=== PATIENT | female | born 1960 | race Caucasian/White ===

== ENCOUNTER → 2018-03-26 12:52 | Outpatient (CLI) | payer MEDICARE, MEDICAID, SELFPAY ==
[2018-03-26 14:24] LABS: Hemoglobin A1C% w Est Avg Glu 7.5 % (4.0-6.0)
[2018-03-26 14:43] LABS: Alanine Aminotransferase 33 IU/L (9-52); Albumin 3.6 g/dL (3.5-5.0); Albumin Globulin Ratio 1.1 (1.0-2.8); Alkaline Phosphatase 83 U/L (38-126); Aspartate Aminotransferase 30 IU/L (14-36); BUN Creatinine Ratio 21.4 (6-22); Bilirubin Total 0.4 mg/dL (0.2-1.3); Blood Urea Nitrogen 15 mg/dL (7-17); Calcium 9.3 mg/dL (8.4-10.2); Carbon Dioxide 25 mmol/L (22-32); Chloride 104 mmol/L (98-107); Estimated Glomerular Filt Rate > 60.0 mL/min (>60); Globulin 3.4 g/dL (1.7-4.1); Glucose 64 mg/dL (70-100); HEMOLYSIS < 15 (0-50); Potassium 4.4 mmol/L (3.4-5.1); Sodium 142 mmol/L (137-145)
[2018-03-26 14:57] LABS: Free T4, Direct Thyroxine 0.76 ng/dL (0.78-2.19)
[2018-03-26 15:11] LABS: Thyroid Stimulating Hormone 7.27 uIU/mL (0.47-4.68)
== END ==
PROVIDERS: PCP Internal Medicine; Visit Provider Internal Medicine
DX: E11.65 Type 2 diabetes mellitus with hyperglycemia (principal); E03.9 Hypothyroidism, unspecified
CPT/HCPCS: 36415; 80053; 83036; 84439; 84443

== ENCOUNTER → 2018-11-15 10:21 | Outpatient (CLI) | payer OTHER, MEDICAID, SELFPAY ==
--- NOTE | 2018-11-15 | DI.MG.S_ITS ---
BILATERAL DIGITAL SCREENING MAMMOGRAM 3D/2D WITH CAD: 11/15/2018 CLINICAL: Routine screening. Comparison is made to exams dated: 08/11/2017 mammogram, 02/16/2007 mammogram, and 10/31/2005 mammogram - [facility]. There are scattered fibroglandular elements in both breasts. Current study was also evaluated with a Computer Aided Detection (CAD) system. There are benign calcifications in both breasts. No significant masses, calcifications, or other findings are seen in either breast. There has been no significant interval change. IMPRESSION: There is no mammographic evidence of malignancy. A 1 year screening mammogram is recommended. This exam was interpreted at Station ID: [id number]. NOTE: For mammograms, a report in lay terms will be sent to the patient. Approximately 15% of breast malignancies will not be visualized mammographically. In the management of a palpable breast mass, a negative mammogram must not discourage biopsy of a clinically suspicious lesion. Electronically Signed By: Saurav [email or web address]/king:11/15/2018 11:57:45 letter sent: Normal Exam ACR BI-RADS Category 2: Benign Finding(s) [id number]
== END ==
PROVIDERS: Family Provider Internal Medicine; PCP Internal Medicine; Visit Provider Internal Medicine
DX: Z12.31 Encounter for screening mammogram for malignant neoplasm of breast (principal)
CPT/HCPCS: 77063; 77067

== ENCOUNTER → 2019-06-28 14:57 | Outpatient (CLI) | payer OTHER, MEDICAID, SELFPAY ==
[2019-06-28 15:21] LABS: Add Manual Diff / Slide Review NO; Basophils Absolute Auto 200 /uL (0-100); Eosinophils Absolute Auto 100 /uL (0-450); Eosinophils Percent Auto 1.3 % (2-4); Hematocrit 37.2 % (36-46); Hemoglobin 12.4 g/dL (12.0-16.0); Lymphocytes Absolute Auto 2800 /uL (1100-4500); Lymphocytes Percent Auto 30.2 % (25-40); Mean Corpuscular HGB Conc 33.3 % (30-36); Mean Corpuscular Hemoglobin 29.8 PG (26-34); Mean Corpuscular Volume 89.5 fL (80-100); Monocytes Absolute Auto 500 /uL (0-900); Monocytes Percent Auto 5.1 % (3-14); Neutrophils Absolute Auto 5800 /uL (1500-7000); Neutrophils Percent Auto 61.4 % (50-75); Platelet Count 292 X10^3/uL (150-400); Red Blood Cell Count 4.15 X10^6/uL (4.0-5.2); Red Cell Distribution Width 14.6 % (11.6-14.8); White Blood Cell Count 9.4 X10^3/uL (4.5-11.0)
[2019-06-28 15:29] LABS: Hemoglobin A1C% w Est Avg Glu 6.4 % (4.0-6.0)
[2019-06-28 16:27] LABS: Alanine Aminotransferase 16 IU/L (9-52); Albumin 3.5 g/dL (3.5-5.0); Albumin Globulin Ratio 1.2 (1.0-2.8); Alkaline Phosphatase 99 U/L (38-126); Aspartate Aminotransferase 24 IU/L (14-36); BUN Creatinine Ratio 21.4 (6-22); Bilirubin Total 0.5 mg/dL (0.2-1.3); Blood Urea Nitrogen 15 mg/dL (7-17); Calcium 9.4 mg/dL (8.4-10.2); Carbon Dioxide 29 mmol/L (22-32); Chloride 101 mmol/L (98-107); Estimated Glomerular Filt Rate > 60.0 mL/min (>60); Glucose 323 mg/dL (70-100); HEMOLYSIS < 15 (0-50); Potassium 4.7 mmol/L (3.4-5.1); Sodium 137 mmol/L (137-145); Total Protein 6.5 g/dL (6.3-8.2)
[2019-06-28 17:01] LABS: Thyroid Stimulating Hormone 2.98 uIU/mL (0.47-4.68)
[2019-06-28 17:02] LABS: Free T4, Direct Thyroxine 0.73 ng/dL (0.78-2.19)
== END ==
PROVIDERS: PCP Internal Medicine; Visit Provider Internal Medicine
DX: E03.9 Hypothyroidism, unspecified (principal); E11.65 Type 2 diabetes mellitus with hyperglycemia; I10 Essential (primary) hypertension; Z79.4 Long term (current) use of insulin
CPT/HCPCS: 36415; 80053; 83036; 84439; 84443; 85025

== ENCOUNTER 2019-08-30 13:45 | Outpatient (RCR) | payer OTHER, MEDICAID, SELFPAY ==
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
== END 2019-08-30 14:46 ==
LOC: PHYS 13:45
PROVIDERS: PCP Internal Medicine; Visit Provider Otolaryngology
DX: R42 Dizziness and giddiness (principal)
CPT/HCPCS: 97110; 97112; 97116; 97162; 97530; 97535

== ENCOUNTER 2019-09-20 13:00 | Outpatient (RCR) | payer OTHER, MEDICAID, SELFPAY ==
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
--- NOTE | 2019-09-05 15:36 | PT.OPPOC ---
Current Diagnoses Unilateral primary osteoarthritis, left knee (09/05/19) Visit Care Team Role Provider Type Sheng Gomes MD Primary Care Provider Physician Specialty: Internal Medicine Address: [address] [place] [address], [address], [place], [address] Email: [email or web address] Ryan Camejo MD Attending Provider Physician Specialty: Orthopedic Surgery Address: [address] [place] [address], [place], [address] Email: [email or web address] Plan Of Care PT-OP-T Assessment and Plan Start: 09/03/19 09:36 Freq: Status: Active Protocol: Document 09/05/19 13:02 MB (Rec: 09/05/19 13:47 MB [id number]) Physical Therapy Assessment Rehab Potential Rehabilitation Potential Fair Evaluation Complexity Number of Personal Factors/Comorbidities 1-2 Number of Body Systems Impaired 1-2 Clinical Presentation at Evaluation Stable Goals 6 Alf Goal (LTG) Pt will perform progressive HEP with I by 11/05/19. LTG Duration 8 weeks 5 Alf Goal (LTG) Pt will present WNLs on a standardized balance test by . LTG Duration 8 weeks 4 Alf Goal (LTG) Pt will present with B hip flexion and knee flexion strength to 5/5 by 11/05/19. LTG Duration 8 weeks 3 Alf Goal (LTG) Pt will present with left knee flexion to 126 deg by 11/05/19 . LTG Duration 8 weeks Two Impairment LE functional index score reflects 53.75% impairment Alf Goal (LTG) Pt will present with an improved LE functional index to reflect no more than 20% impairment by 11/05/19. LTG Duration 8 weeks One Alf Goal (LTG) Pt will report a 25% improvement in left knee pain by 11/05/19. LTG Duration 8 weeks Assessment Summary Assessment Pt is a 58 y/o female presenting with reports of left knee pain and order reflecting patellofemoral OA dx. Pt has mild tenderness over left patella with palpation but no pain with MMT knee extension and flexion. She does not rate pain. Pt presents with mild B hip flexor and right knee flexor weakness, poor balance and myofasical changes. She will benefit from PT for strengthening, balance and flexibility exercises as needed. She presents with normal proprioception right toes but very little proprioception left toes in setting of old foot injury. This likely impacts her balance. She also presents with left ankle edema that she states is chronic. Barriers to PT include increased body mass, left foot decreased sensation, history of dizziness with partial non- organic cause as tested by this PT last week, and impulsivity with decreased insight. Pt wears rocker bottom shoes and PT encourages her to wear more stable foot wear. Her states that she has diabetic shoes and will bring in to future treatments. Diabetic changes also a likely contributer to poor balance. Physical Therapy Plan Frequency and Duration Frequency of Treatment 2x/Week Duration of Treatment 8 weeks Plan of Care Start Date 09/05/19 Plan of Care End Date 11/05/19 Next Visit Focus/Plan Next Note Type Treatment Note Next Visit Plan Initiate strengthening and balance work Plan of Care Dates Plan of Care Start Date 09/05/19 Plan of Care End Date 11/05/19
--- NOTE | 2019-09-05 16:00 | PT.OPPOC ---
Current Diagnoses Unilateral primary osteoarthritis, left knee (09/05/19) Visit Care Team Role Provider Type Sheng Gomes MD Primary Care Provider Physician Specialty: Internal Medicine Address: [address] [place] [address], [address], [place], [address] Email: [email or web address] Ryan Camejo MD Attending Provider Physician Specialty: Orthopedic Surgery Address: [address] [place] [address], [place], [address] Email: [email or web address] Plan Of Care PT-OP-T Assessment and Plan Start: 09/03/19 09:36 Freq: Status: Active Protocol: Document 09/05/19 13:02 MB (Rec: 09/05/19 13:47 MB [id number]) Physical Therapy Assessment Rehab Potential Rehabilitation Potential Fair Evaluation Complexity Number of Personal Factors/Comorbidities 1-2 Number of Body Systems Impaired 1-2 Clinical Presentation at Evaluation Stable Impairments Impairments Balance,Gait,Pain,ROM,Strength Goals 6 Detention Goal (LTG) Pt will perform progressive HEP with I by 11/05/19. LTG Duration 8 weeks 5 Surface Grinder Tender Goal (LTG) Pt will present WNLs on a standardized balance test by . LTG Duration 8 weeks 4 Surface Grinder Tender Goal (LTG) Pt will present with B hip flexion and knee flexion strength to 5/5 by 11/05/19. LTG Duration 8 weeks 3 Detention Goal (LTG) Pt will present with left knee flexion to 126 deg by 11/05/19 . LTG Duration 8 weeks Two Impairment LE functional index score reflects 53.75% impairment Detention Goal (LTG) Pt will present with an improved LE functional index to reflect no more than 20% impairment by 11/05/19. LTG Duration 8 weeks One Surface Grinder Tender Goal (LTG) Pt will report a 25% improvement in left knee pain by 11/05/19. LTG Duration 8 weeks Assessment Summary Assessment Pt is a 58 y/o female presenting with reports of left knee pain and order reflecting patellofemoral OA dx. Pt has mild tenderness over left patella with palpation but no pain with MMT knee extension and flexion. She does not rate pain. Pt presents with mild B hip flexor and right knee flexor weakness, poor balance and myofasical changes. She will benefit from PT for strengthening, balance and flexibility exercises as needed. She presents with normal proprioception right toes but very little proprioception left toes in setting of old foot injury. This likely impacts her balance. She also presents with left ankle edema that she states is chronic. Barriers to PT include increased body mass, left foot decreased sensation, history of dizziness with partial non- organic cause as tested by this PT last week, and impulsivity with decreased insight. Pt wears rocker bottom shoes and PT encourages her to wear more stable foot wear. Her states that she has diabetic shoes and will bring in to future treatments. Diabetic changes also a likely contributer to poor balance. Physical Therapy Plan Frequency and Duration Frequency of Treatment 2x/Week Duration of Treatment 8 weeks Plan of Care Start Date 09/05/19 Plan of Care End Date 11/05/19 Therapeutic Interventions Therapeutic Interventions Balance Training,Gait Training ,Home Exercise Program,Manual Therapy,Neuromuscular Re- education,Patient/Caregiver Education,Self-Care/Home Management,Taping,Therapeutic Activities,Therapeutic Exercises Modalities Cold Pack/Ice Massage,Electric Stimulation,Hot Packs, Ultrasound Next Visit Focus/Plan Next Note Type Treatment Note Next Visit Plan Initiate strengthening and balance work Plan of Care Dates Plan of Care Start Date 09/05/19 Plan of Care End Date 11/05/19
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
== END 2019-10-11 10:18 | disposition home or self-care (01) ==
LOC: PHYS 13:00
PROVIDERS: PCP Internal Medicine; Visit Provider Orthopaedic Surgery
DX: M17.12 Unilateral primary osteoarthritis, left knee (principal)
CPT/HCPCS: 97110; 97161

== ENCOUNTER → 2019-12-06 14:52 | Outpatient (CLI) | payer OTHER, MEDICAID, SELFPAY ==
--- NOTE | 2019-12-06 14:56 | DI.MG.S_ITS ---
BILATERAL DIGITAL SCREENING MAMMOGRAM 3D/2D WITH CAD: 12/06/2019 CLINICAL: Routine screening. Comparison is made to exams dated: 11/15/2018 mammogram, 08/11/2017 mammogram, and 02/16/2007 mammogram - [facility]. The tissue of both breasts is predominantly fatty. Current study was also evaluated with a Computer Aided Detection (CAD) system. There are benign calcifications in both breasts. No significant masses, calcifications, or other findings are seen in either breast. There has been no significant interval change. IMPRESSION: There is no mammographic evidence of malignancy. A 1 year screening mammogram is recommended. This exam was interpreted at Station ID: [id number]. NOTE: For mammograms, a report in lay terms will be sent to the patient. Approximately 15% of breast malignancies will not be visualized mammographically. In the management of a palpable breast mass, a negative mammogram must not discourage biopsy of a clinically suspicious lesion. Electronically Signed By: Saurav [email or web address]/king:12/06/2019 16:24:13 letter sent: Normal Exam ACR BI-RADS Category 2: Benign Finding(s) 3342F
== END ==
PROVIDERS: PCP Internal Medicine; Referring Provider Internal Medicine; Visit Provider Internal Medicine
DX: Z12.31 Encounter for screening mammogram for malignant neoplasm of breast (principal)
CPT/HCPCS: 77063; 77067

== ENCOUNTER → 2020-08-13 14:45 | Outpatient (CLI) | payer OTHER, MEDICAID, SELFPAY ==
[2020-08-13 15:46] LABS: Alanine Aminotransferase 20 IU/L (<35); Albumin 3.9 g/dL (3.5-5.0); Albumin Globulin Ratio 1.1 (1.0-2.8); Alkaline Phosphatase 112 U/L (38-126); Aspartate Aminotransferase 20 IU/L (14-36); BUN Creatinine Ratio 19.1 (6-22); Bilirubin Total 0.7 mg/dL (0.2-1.3); Blood Urea Nitrogen 17 mg/dL (7-17); Calcium 9.7 mg/dL (8.4-10.2); Carbon Dioxide 29 mmol/L (22-32); Chloride 100 mmol/L (98-107); Cholesterol 172 mg/dL (140-199); Estimated Glomerular Filt Rate > 60.0 mL/min (>60); Globulin 3.5 g/dL (1.7-4.1); Glucose 262 mg/dL (70-100); HDL Cholesterol 43 mg/dL (40-60); HEMOLYSIS < 15 (0-50); LDL Cholesterol Calculated 97 mg/dL (<100); Potassium 4.3 mmol/L (3.4-5.1); Sodium 136 mmol/L (137-145); Total Protein 7.4 g/dL (6.3-8.2); Triglycerides 159 mg/dL (35-150)
[2020-08-13 16:02] LABS: Creatinine Urine Random 332.5 mg/dL
[2020-08-13 16:13] LABS: TSH w/ Reflex to FT4 2.59 uIU/mL (0.47-4.68)
== END ==
PROVIDERS: PCP Internal Medicine; Referring Provider Internal Medicine; Visit Provider Internal Medicine
DX: E11.65 Type 2 diabetes mellitus with hyperglycemia (principal)
CPT/HCPCS: 36415; 80053; 80061; 82043; 82570; 84443

== ENCOUNTER 2021-03-20 06:48 | Emergency (ER) | payer OTHER, MEDICAID, SELFPAY ==
[2021-03-20] VITALS (15 sets, daily range): BP systolic 120–159; BP diastolic 56–82; PULSE 96–119; RESP 18–38; TEMP 36.6; O2SAT 94–100; BMI 44.9
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
--- NOTE | 2021-03-20 07:26 | ED_ITS ---
HPI - Extremity Injury (Upper) General Chief Complaint: Extremity Injury, Upper Stated Complaint: GLF Time Seen by Provider: 03/20/21 06:50 Source: EMS Mode of arrival: EMS Limitations: no limitations History of Present Illness HPI narrative: Patient is a 60-year-old female who has a history of vertigo, hypertension hyperlipidemia presenting after and ground level fall. She says she woke up this morning with dizzy and fell to the ground hitting her right shoulder. She thinks maybe she hit her head but no loss of consciousness she denies any nausea or vomiting. She does have some numbness and tingling in her fingertips and is in quite a bit of pain in her right shoulder. No other injury. Dizziness is not new this is her typical dizziness. Related Data Home Medications Medication Instructions Recorded Confirmed glucagon (human recombinant) 1 mg 1 mg SUBCUT Q20M PRN 11/25/19 02/09/21 solution for injection liraglutide 0.6 mg/0.1 mL (18 mg/3 1.2 mg SUBCUT DAILY 08/13/20 02/09/21 mL) subcutaneous pen injector desonide 0.05 % topical cream 1 applic TOP TID PRN gram 02/09/21 02/09/21 triamcinolone acetonide 0.1 % 1 applic TOP QID PRN gram 02/09/21 02/09/21 topical cream Previous Rx's Medication Instructions Recorded epinephrine [EpiPen 2-Bon] 0.3 mg IM SEE INSTRUCTIONS PRN #1 01/27/17 pkg Disabled Parking Permit ea #1 05/18/17 insulin lispro 100 unit/mL See Rx Instructions SUBCUT QACHS 09/18/18 subcutaneous pen PRN #3 each omeprazole 40 mg capsule,delayed 40 mg PO BID #180 cap 08/13/20 release amlodipine 5 mg tablet 5 mg PO DAILY #90 tab 09/01/20 bupropion HCl 150 mg tablet,12 hr 150 mg PO BID #60 tab 09/07/20 sustained-release pen needle, diabetic 31 gauge x See Rx Instructions .ROUTE 09/15/2012/29 .COMPLEX #250 ea duloxetine 40 mg capsule,delayed 40 mg PO QDAY #30 cap 10/05/20 release blood sugar diagnostic #360 each 10/19/20 galcanezumab-gnlm 120 mg/mL 120 mg SUBCUT QMONTH #1 ml 10/19/20 subcutaneous syringe losartan 100 mg tablet 100 mg PO DAILY #60 tab 10/26/20 atorvastatin 40 mg tablet 40 mg PO QDAY #90 tab 11/02/20 nortriptyline 50 mg capsule 50 mg PO HS #90 cap 12/04/20 insulin glargine 100 unit/mL (3 50 unit SUBCUT QDAY #45 ml 12/24/20 mL) subcutaneous pen clonidine HCl 0.1 mg tablet 0.1 mg PO BID #180 tab 01/26/21 albuterol sulfate 2.5 mg INHALATION Q4-6H PRN #180 ml 02/09/21 calcium carbonate 320 mg calcium 2,250 mg PO DAILY #250 tab 02/09/21 (750 mg) chewable tablet cholecalciferol (vitamin D3) 50 50 mcg PO DAILY #90 cap 02/09/21 mcg (2,000 unit) capsule fluticasone propionate 230 2 puff INHALATION BID #12 g 02/09/21 mcg-salmeterol 21 mcg/actuation HFA inhaler fluticasone propionate 50 2 spray INTRANASAL BEDTIME #16 g 02/09/21 mcg/actuation nasal spray,suspension mecobalamin (vitamin B12) 1,000 1,000 mcg PO DAILY #90 tab 02/09/21 mcg chewable tablet ondansetron 4 mg PO Q8H PRN #10 tab 03/20/21 oxycodone 5 mg PO Q6H PRN #14 tab 03/20/21 Allergies Allergy/AdvReac Type Severity Reaction Status Date / Time aspirin [ASPIRIN] Allergy Severe Breathing Verified 03/20/21 06:52 problem erythromycin base Allergy Severe Throat Verified 03/20/21 06:52 [ERYTHROMYCIN BASE] closes sumatriptan [SUMATRIPTAN] Allergy Severe Anaphylaxis Verified 03/20/21 06:52 meperidine [MEPERIDINE] Allergy Mild Rash Verified 03/20/21 06:52 acetaminophen [From VICODIN] Allergy Unknown Verified 03/20/21 06:52 hydrocodone [From VICODIN] Allergy Unknown Verified 03/20/21 06:52 ibuprofen [IBUPROFEN] AdvReac Mild Headache, Verified 03/20/21 06:52 vomiting Review of Systems Review of Systems ROS Unobtainable: All systems reviewed & are unremarkable except as noted in HPI and below Constitutional Constitutional: Denies chills, Denies fever(s), Denies frequent falls, Denies lethargy and Denies weakness Eyes Eyes: Denies change in vision, Denies eye discharge, Denies irritation and Denies loss of vision ENT Ears, Nose, Mouth, and Throat: Reports dizziness Cardiovascular Cardiovascular: Denies chest pain, Denies syncope, Denies rapid heart rate, Denies edema, Denies dyspnea, Denies dyspnea on exertion and Denies orthopnea Respiratory Respiratory: Denies cough, Denies dyspnea, Denies dyspnea on exertion and Denies wheezing Gastrointestinal Gastrointestinal: Denies abdominal pain, Denies change in bowel habits, Denies diarrhea, Denies nausea and Denies vomiting Musculoskeletal Musculoskeletal: Reports as per HPI Integumentary/Breasts Skin/Breast: Denies pruritus, Denies erythema, Denies rash and Denies wounds Neurologic Neurologic: Reports dizziness, Denies syncope, Denies frequent falls, Denies loss of vision and Denies weakness Allergic/Immunologic Allergic/Immunologic: Denies wheezing Patient History Medical History (Updated 03/20/21 @ 09:49 by Stephie Angel DO) Acquired hypothyroidism (01/14/16) Anxiety (05/12/17) Asthma Body mass index (BMI) of 40.1 to 44.9 in adult (01/06/17) GERD (gastroesophageal reflux disease) (05/27/11) H/O migraine Mixed hyperlipidemia (05/27/11) Moderate persistent asthma without complication (05/27/11) Morbid obesity due to excess calories (01/06/17) Recurrent major depressive disorder, in partial remission (05/12/17) Type 2 diabetes mellitus with diabetic polyneuropathy (08/21/15) Type 2 diabetes mellitus with hyperglycemia, with long-term current use of insulin (04/15/16) Surgical History Fracture S/P total abdominal hysterectomy and bilateral salpingo-oophorectomy Status post cholecystectomy Surgical procedure planned Social History marital status: number of children: 3 household members: spouse lives independently: Yes caregiver/support person: No housing: apartment pets and animals: Yes education level: college occupational status: disabled current occupational exposures/hazards: No 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: Zoroastrianism leisure activities: other Smoking Status: Former smoker Tobacco: How many years used: 10 Smokeless tobacco user: other quit status: quit date established alcohol intake: current substance use type: other Smoking Status: Former smoker Exam Initial Vital Signs Initial Vital Signs: Vital Signs Temperature 98 F 03/20/21 06:52 Pulse Rate 119 H 03/20/21 06:52 Respiratory Rate 20 03/20/21 06:52 Blood Pressure 159/82 H 03/20/21 06:52 Pulse Oximetry 94 03/20/21 06:52 GENERAL: Alert 60-year-old female BMI 44 appears in pain HEENT: Head atraumatic,EOMI, pupils reactive, face symmetric, [moist] mucous membranes, neck supple no vertebral tenderness full range of motion CARDIOVASCULAR: Regular rate and rhythm without murmurs, rubs or gallops. RESPIRATORY: Breath sounds equal bilaterally, no wheezes rales or rhonchi. ABDOMEN: Soft, nontender. Normoactive bowel sounds all 4 quadrants. No guarding or rebound. EXTREMITIES: Normal range of motion, no clubbing or edema. Neurovascularly intact Right upper extremity in sling sensation in the deltoid intact. Complaining of numbness and tingling in fingers but ulnar radial and median nerve in tact sensation and motor. Finger ab and adduction wrist flexion and extension. NEUROLOGICAL: Alert and oriented x4. No focal deficits SKIN: Warm, dry, no laceration, no petechiae, no rashes or lesions. Procedures Orthopedic Splinting/Casting Injury #1: Side: right Upper Extremity Injury Location: shoulder Upper Extremity Immobilizer: sling/shoulder immobilizer Post splinting neuro exam: intact Post splinting vascular exam: intact Placed by: Nursing Course Orders Ordered: ED Orders 03/20/21 06:52 XR shoulder RT min 2V Stat 03/20/21 07:30 Complete Blood Count AUTO DIFF Stat Comprehensive Metabolic Panel Stat Troponin & CK Cardiac Panel Stat 03/20/21 07:38 EKG-12 Lead Stat 03/20/21 07:45 COVID19 -Nasal swab/Pre-Proc Stat 03/20/21 08:04 CT UE RT wo con Stat Discontinued Medications Etomidate (Etomidate 2 Mg/Ml 10 Ml Vial) 10 mg IV NOW ONE Stop: 03/20/21 07:39 Hydromorphone HCl (Hydromorphone 0.5 Mg Inj) 0.5 mg IV NOW ONE Stop: 03/20/21 08:20 Last Admin: 03/20/21 08:30 Dose: 0.5 mg Documented by: VADIM Hydromorphone HCl (Hydromorphone 0.5 Mg Inj) 0.5 mg IV NOW ONE Stop: 03/20/21 09:52 Last Admin: 03/20/21 09:57 Dose: 0.5 mg Documented by: VADIM Morphine Sulfate (Morphine 2 Mg/Ml Inj) 2 mg IV NOW ONE Stop: 03/20/21 07:50 Last Admin: 03/20/21 07:56 Dose: 2 mg Documented by: VADIM Ondansetron HCl (Ondansetron 4 Mg/2 Ml Inj) 4 mg IV NOW ONE Stop: 03/20/21 07:51 Last Admin: 03/20/21 07:56 Dose: 4 mg Documented by: VADIM Vital Signs Vital signs: Vital Signs - 8 hr 03/20/21 07:35 03/20/21 07:39 03/20/21 07:41 Pulse Rate 101 H 102 H 101 H Respiratory Rate 26 H 18 Blood Pressure 141/59 H 127/60 Pulse Oximetry 97 96 03/20/21 07:46 03/20/21 07:51 03/20/21 07:56 Pulse Rate 98 H 99 H 96 H Respiratory Rate 38 H 25 H 21 Blood Pressure 126/59 L 120/56 L 125/58 L Pulse Oximetry 100 100 100 03/20/21 08:00 03/20/21 08:14 03/20/21 08:30 Pulse Rate 102 H 101 H 101 H Respiratory Rate 22 18 22 Blood Pressure Pulse Oximetry 100 96 98 03/20/21 09:00 03/20/21 09:30 03/20/21 10:00 Pulse Rate 101 H 104 H 106 H Respiratory Rate 21 23 28 H Blood Pressure Pulse Oximetry 99 98 99 MDM - Extremity Injury (Upper) Lab Data Attestation: I reviewed the patient's lab results. Result diagrams: 03/20/21 07:30 03/20/21 07:30 Labs: Lab Results 03/20/21 03/20/21 03/20/21 Range/Units 07:30 07:30 07:45 WBC 12.4 H (4.5-11.0) X10^3/uL RBC 4.49 (4.0-5.2) X10^6/uL Hgb 12.8 (12.0-16.0) g/dL Hct 38.0 (36-46) % MCV 84.6 (80-100) fL MCH 28.5 (26-34) PG MCHC 33.7 (30-36) % RDW 14.6 (11.6-14.8) % Plt Count 321 (150-400) X10^3/uL Neut % (Auto) 63.9 (50-75) % Lymph % (Auto) 29.4 (25-40) % Hodgeman % (Auto) 5.2 (3-14) % Eos % (Auto) 1.2 L (2-4) % Baso % (Auto) 0.3 (0-2) % Neut # (Auto) 7900 H (2096-6704) /uL Lymph # (Auto) 3600 (0714-9155) /uL Hodgeman # (Auto) 600 (0-900) /uL Eos # (Auto) 100 (0-450) /uL Baso # (Auto) 0 (0-100) /uL Sodium 135 L (137-145) mmol/L Potassium 3.8 (3.4-5.1) mmol/L Chloride 103 (98-107) mmol/L Carbon Dioxide 25 (22-32) mmol/L BUN 12 (7-17) mg/dL Creatinine 0.71 (0.52-1.04) mg/dL Estimated GFR > 60.0 (>60) mL/min BUN/Creatinine Ratio 16.9 (6-22) Glucose 224 H (70-100) mg/dL Calcium 9.3 (8.4-10.2) mg/dL Total Bilirubin 0.6 (0.2-1.3) mg/dL AST 35 (14-36) IU/L ALT 21 (<35) IU/L Alkaline Phosphatase 109 (38-126) U/L Total Creatine Kinase 222 H (30-135) U/L CK-MB (CK-2) 4.15 H (<2.37) ng/mL CK-MB (CK-2) Rel Index 1.9 (1.5-5.0) % Troponin I < 0.012 (0.01-0.034) ng/mL Total Protein 7.0 (6.3-8.2) g/dL Albumin 3.7 (3.5-5.0) g/dL Globulin 3.3 (1.7-4.1) g/dL Albumin/Globulin Ratio 1.1 (1.0-2.8) SARS-CoV-2 (PCR) Negative (Negative) Imaging Data Extremity x-ray #1: Radiologist's Impression: PROCEDURE: XR SHOULDER RT MIN 2V INDICATIONS: fall with arm pain TECHNIQUE: 2 views of the shoulder were acquired. COMPARISON: None. FINDINGS: Bones: There is a fracture of the humeral head and neck, and anterior disl ocation of the structures in the subcoracoid space.. No suspicious bony lesions. Visualized ribs appear intact. Soft tissues: No suspicious soft tissue calcifications. IMPRESSION: Anterior dislocation with at least 3 part fracture involving the humeral head and neck. Dictated by: Jimbo Palacio M.D. on 03/20/2021 at 8:27 CT RUE: Radiologist's Impression: PROCEDURE: CT UE RT WO CON INDICATIONS: fracture/dislocation humerus TECHNIQUE: Noncontrast 1-1.5 mm thick sections acquired from the acromioclavicular joint to the inferior scapula, with coronal and sagittal reformatting. COMPARISON: Plain film imaging same day. FINDINGS: Image quality: Excellent. Bones: Extensively comminuted fracture planes involves the humeral head and neck, on the right. There is both lateral and anterior dislocation of portions of the fracture planes, and the glenoid visualized appears intact. Soft tissues: No hematoma. IMPRESSION: Extensively comminuted fractures involve the humeral head and neck on the right with both anterior and lateral dislocation of components of the fracture planes. No additional injury to the shoulder is found. Dictated by: Jimbo Palacio M.D. on 03/20/2021 at 8:32 MDM Narrative Medical decision making narrative: 08-Dr. Barillas on-call for Orthopedics updated on patient's symptoms test results recommends CT of upper extremity sling pain control and follow-up in clinic. Patient does have multiple allergies to Tylenol and ibuprofen however she does seem to be tolerating dilaudid well I will discharge her home oxycodone and structure to follow up with ortho as requested Discharge Plan Departure Patient Disposition: Home Clinical Impression: Closed fracture of head of right humerus Qualifiers: Encounter type: initial encounter Qualified Code(s): S42.291A - Other displaced fracture of upper end of right humerus, initial encounter for closed fracture Anterior dislocation of right humerus Qualifiers: Encounter type: initial encounter Qualified Code(s): S43.014A - Anterior dislocation of right humerus, initial encounter Activity Restrictions/Additional Instructions: *You have been diagnosed with right humeral head fracture and dislocation *What to do: At this time keep arm in sling at all times. He may need to by a 2nd sling for bathing. You will need to follow-up with orthopedics. *Continue to take medications as directed Oxycodone 5 mg every 6 hours if needed for severe pain *Follow up with your primary care provider in 2-3 days Call orthopedics Monday to schedule follow-up appointment next week *Return to ER if you should have increasing pain, increasing numbness tingling or weakness in right hand or any new, worsening or concerning symptoms CONTROLLED SUBSTANCE DISCHARGE (Narcotoic/benzodiazepine/Flexeril/Phenergan) 1. You have been prescribed narcotic medications, it does have acetaminophen/Tylenol/paracetamol in it, DO NOT TAKE MORE THAN 4,00mg in 24 hours of Tylenol. TRAMADOL DOES NOT CONTAIN TYLENOL 2. Please understand that we cannot provide further refills of narcotics, benzodiazepines or controlled substances through the ED and her pain management will need to be through your provider. 3. While on these medications you cannot drive or operate heavy machinery. 4. You cannot sign legal documents or perform any duties such as this. 5. As long as you're taking opiate pain medications he should also be taking a stool softener such as Colace, Dulcolax, MiraLAX or prune juice, to help avoid constipation. Prescriptions: New oxycodone 5 mg tablet 5 mg PO Q6H PRN (Reason: pain) Qty: 14 RF: 0 ondansetron 4 mg tablet,disintegrating 4 mg PO Q8H PRN (Reason: nausea and vomiting) Qty: 10 RF: 0 No Action epinephrine [EpiPen 2-Bon] 0.3 MG/0.3 ML auto-injector 0.3 mg IM SEE INSTRUCTIONS PRNQty: 1 RF: 1 Disabled Parking Permit Qty: 1 RF: 0 insulin lispro [Humalog KwikPen Insulin] 100 unit/mL insulin pen See Rx Instructions SUBCUT QACHS PRN (Reason: DM) Qty: 3 RF: 6 bupropion HCl 150 mg tablet sustained-release 12 hr 150 mg PO BID Qty: 60 RF: 5 pen needle, diabetic [BD Ultra-Fine Mini Pen Needle] 31 gauge x 3/16 needle See Rx Instructions .ROUTE .COMPLEX Qty: 250 RF: 6 duloxetine 40 mg capsule,delayed release(DR/EC) 40 mg PO QDAY Qty: 30 RF: 11 Emgality Syringe 120 mg/mL syringe 120 mg SUBCUT QMONTH Qty: 1 RF: 12 (DME) Blood Glucose Test Strip See Dose Instructions .ROUTE .MEDSUPPLY Qty: 360 RF: 3 losartan 100 mg tablet 100 mg PO DAILY Qty: 60 RF: 6 atorvastatin 40 mg tablet 40 mg PO QDAY Qty: 90 RF: 3 nortriptyline 50 mg capsule 50 mg PO HS Qty: 90 RF: 3 Lantus Solostar U-100 Insulin 100 unit/mL (3 mL) insulin pen 50 unit subcut QDAY Qty: 45 RF: 11 clonidine HCl 0.1 mg tablet 0.1 mg PO BID Qty: 180 RF: 3 desonide 0.05 % cream 1 applic TOP TID PRNRF: 0 triamcinolone acetonide 0.1 % cream 1 applic TOP QID PRNRF: 0 Advair HFA 230-21 mcg/actuation HFA aerosol inhaler 2 puff inhalation BID Qty: 12 RF: 3 albuterol sulfate 2.5 mg /3 mL (0.083 %) solution for nebulization 2.5 mg inhalation Q4-6H PRN (Reason: shortness of breath or wheezing) Qty: 180 RF: 4 mecobalamin (vitamin B12) 1,000 mcg tablet,chewable 1,000 mcg PO DAILY Qty: 90 RF: 3 fluticasone propionate 50 mcg/actuation spray,suspension 2 spray intranasal BEDTIME Qty: 16 RF: 3 calcium carbonate [Antacid (calcium carbonate)] 320 mg calcium (750 mg) tablet ,chewable 2,250 mg PO DAILY Qty: 250 RF: 3 cholecalciferol (vitamin D3) 50 mcg (2,000 unit) capsule 50 mcg PO DAILY Qty: 90 RF: 3 Glucagon Emergency Kit (human) 1 mg recon soln 1 mg SUBCUT Q20M PRNRF: 0 amlodipine 5 mg tablet 5 mg PO DAILY Qty: 90 RF: 3 Victoza 2-Bon 0.6 mg/0.1 mL (18 mg/3 mL) pen injector 1.2 mg SUBCUT DAILY RF: 0 omeprazole 40 mg capsule,delayed release(DR/EC) 40 mg PO BID Qty: 180 RF: 3 Referrals: [facility] [Provider Group] Sheng Gomes MD [Primary Care Provider] -
[2021-03-20 07:47] LABS: Add Manual Diff / Slide Review NO; Basophils Absolute Auto 0 /uL (0-100); Basophils Percent Auto 0.3 % (0-2); Eosinophils Absolute Auto 100 /uL (0-450); Eosinophils Percent Auto 1.2 % (2-4); Hemoglobin 12.8 g/dL (12.0-16.0); Lymphocytes Absolute Auto 3600 /uL (1100-4500); Lymphocytes Percent Auto 29.4 % (25-40); Mean Corpuscular HGB Conc 33.7 % (30-36); Mean Corpuscular Hemoglobin 28.5 PG (26-34); Mean Corpuscular Volume 84.6 fL (80-100); Monocytes Absolute Auto 600 /uL (0-900); Monocytes Percent Auto 5.2 % (3-14); Neutrophils Absolute Auto 7900 /uL (1500-7000); Neutrophils Percent Auto 63.9 % (50-75); Platelet Count 321 X10^3/uL (150-400); Red Blood Cell Count 4.49 X10^6/uL (4.0-5.2); Red Cell Distribution Width 14.6 % (11.6-14.8); White Blood Cell Count 12.4 X10^3/uL (4.5-11.0)
[2021-03-20] MEDS: MORPHINE 2 MG/ML INJ IV (07:56)
[2021-03-20] MEDS: ONDANSETRON 4 MG/2 ML INJ IV (07:56)
[2021-03-20 08:03] LABS: COVID19 -Nasal RAPID Negative (Negative)
[2021-03-20 08:04] LABS: Alanine Aminotransferase 21 IU/L (<35); Albumin 3.7 g/dL (3.5-5.0); Albumin Globulin Ratio 1.1 (1.0-2.8); Alkaline Phosphatase 109 U/L (38-126); Aspartate Aminotransferase 35 IU/L (14-36); BUN Creatinine Ratio 16.9 (6-22); Bilirubin Total 0.6 mg/dL (0.2-1.3); Blood Urea Nitrogen 12 mg/dL (7-17); Calcium 9.3 mg/dL (8.4-10.2); Carbon Dioxide 25 mmol/L (22-32); Chloride 103 mmol/L (98-107); Creatine Kinase 222 U/L (30-135); Estimated Glomerular Filt Rate > 60.0 mL/min (>60); Globulin 3.3 g/dL (1.7-4.1); Glucose 224 mg/dL (70-100); HEMOLYSIS < 15 (0-50); Potassium 3.8 mmol/L (3.4-5.1); Sodium 135 mmol/L (137-145)
--- NOTE | 2021-03-20 08:04 | DI.CT.S_ITS ---
PROCEDURE: CT UE RT WO CON INDICATIONS: fracture/dislocation humerus TECHNIQUE: Noncontrast 1-1.5 mm thick sections acquired from the acromioclavicular joint to the inferior scapula, with coronal and sagittal reformatting. COMPARISON: Plain film imaging same day. FINDINGS: Image quality: Excellent. Bones: Extensively comminuted fracture planes involves the humeral head and neck, on the right. There is both lateral and anterior dislocation of portions of the fracture planes, and the glenoid visualized appears intact. Soft tissues: No hematoma. IMPRESSION: Extensively comminuted fractures involve the humeral head and neck on the right with both anterior and lateral dislocation of components of the fracture planes. No additional injury to the shoulder is found. Dictated by: Jimbo Palacio M.D. on 03/20/2021 at 8:32 Approved by: Jimbo Palacio M.D. on 03/20/2021 at 8:34
[2021-03-20 08:15] LABS: Troponin I < 0.012 ng/mL (0.01-0.034)
[2021-03-20 08:19] LABS: CKMB % Relative Index 1.9 % (1.5-5.0); Creatine Kinase MB 4.15 ng/mL (<2.37)
[2021-03-20] MEDS: HYDROMORPHONE 0.5 MG INJ IV ×2 (08:30→09:57)
--- NOTE | 2021-03-20 10:27 | PC.NURSE ---
sling applied to right arm.
== END 2021-03-20 10:30 | disposition home or self-care (01) ==
PROVIDERS: Emergency Provider Emergency Medicine; PCP Internal Medicine
DX: S42.291A Other displaced fracture of upper end of right humerus, initial encounter for closed fracture (principal); S43.014A Anterior dislocation of right humerus, initial encounter; R07.9 Chest pain, unspecified; R42 Dizziness and giddiness; W19.XXXA Unspecified fall, initial encounter; Z20.822 Contact with and (suspected) exposure to COVID-19
CPT/HCPCS: 36415; 73030; 73200; 80053; 82550; 82553; 84484; 85025; 87635; 93005; 93010; 96374; 96375; 96376; 99284; C9803; J1170; J2270; J2405

== ENCOUNTER 2021-03-26 09:05 | Inpatient (IN) | payer OTHER, MEDICAID, SELFPAY ==
[2021-03-25 08:06] VITALS: BMI 46.0
[2021-03-26] VITALS (16 sets, daily range): BP systolic 111–167; BP diastolic 60–90; PULSE 95–115; RESP 14–18; TEMP 35.8–37.1; O2SAT 92–98; BMI 46.0
[2021-03-26 09:40] LABS: COVID19 -Nasal RAPID Negative (Negative)
[2021-03-26] MEDS: INSULIN REGULAR 100 UNIT/ML 3 ML VIAL IV (10:35)
[2021-03-26] MEDS: INSULIN DRIP PREMIX 100 UNIT/100 ML PLAST..BAG 6 UNIT IV (10:55)
[2021-03-26] MEDS: LACTATED RINGERS 1,000 ML 42 ML IV ×2 (11:08→14:22)
[2021-03-26] MEDS: ALBUTEROL 2.5 MG/3 ML NEB (ADULT) INH ×2 (11:33→19:51)
[2021-03-26] MEDS: SCOPOLAMINE 1 PATCH TOP (11:39)
--- NOTE | 2021-03-26 11:53 | PM.PREOP ---
Pre-operative Note COVID-19 COVID-19 status: Negative Interval Note History & Physical reviewed/Exam performed by Physician: Yes Changes to H&P: No
--- NOTE | 2021-03-26 12:04 | PM.PREOP ---
Pre-operative Note COVID-19 COVID-19 status: Negative Interval Note History & Physical reviewed/Exam performed by Physician: Yes Changes to H&P: No
[2021-03-26] MEDS: CEFAZOLIN 1 GM VIAL 2 GM IV (12:30)
--- NOTE | 2021-03-26 12:46 | SUR.OPER ---
Beach chair with scytron shoulder positioner. Lower body on padded OR bed. Head in foam padded head cradle, secured with straps. Non-operative arm secured <90 degrees abduction. Pillow under knees. Safety belt at thigh. Cloth tape over blanket over lower legs.
[2021-03-26] MEDS: LIDOCAINE 1% W/EPI 20 ML INJ (12:59)
[2021-03-26] MEDS: BUPIVACAINE 0.5% (PF) VIAL 30 ML INJ (12:59)
--- NOTE | 2021-03-26 13:05 | SUR.OPER ---
Addendum entered by Cr Stein R.N. 03/26/21 14:02: blood glucose at 1402 was 184 Original Note: blood glucose at 1302 was 191
[2021-03-26] MEDS: TRANEXAMIC ACID 1,000 MG in SODIUM CHLORIDE 0.9% 100 ML 200 ML IV (14:21)
--- NOTE | 2021-03-26 15:09 | DI.RAD.S_ITS ---
PROCEDURE: XR SHOULDER RT MIN 2V INDICATIONS: Status post reverse total shoulder TECHNIQUE: A total of 2 views of the shoulder were acquired. COMPARISON: [facility], CR, XR SHOULDER RT MIN 2V, 03/20/2021, 6:59. FINDINGS: Bones: Normal alignment after right total shoulder arthroplasty. No suspicious bony lesions. Visualized ribs appear intact. Soft tissues: No suspicious soft tissue calcifications. IMPRESSION: Normal alignment established, by shoulder arthroplasty on the right. Dictated by: Jimbo Palacio M.D. on 03/26/2021 at 15:29 Approved by: Jimbo Palacio M.D. on 03/26/2021 at 15:30
[2021-03-26] MEDS: LACTATED RINGERS 1,000 ML 125 ML IV (17:58)
[2021-03-26] MEDS: OXYCODONE IR 10 MG TABLET PO (19:24)
[2021-03-26] MEDS: BUDESONIDE 0.5 MG/2 ML NEB INH (19:51)
--- NOTE | 2021-03-26 20:27 | P.OP_ITS ---
Operative Date/Time/Diagnoses Date of procedure: 03/26/21 Time of procedure: 12:30 Pre-op diagnosis: Fracture dislocation of the proximal humerus, right Post-op diagnosis: same Procedure & Clinicians Procedure: Reversed total shoulder arthroplasty Same procedure as scheduled: Yes Indications: Fracture dislocation of the proximal humerus Surgeon: Marcus Barillas Compositor Apprentice: Ayanna Acosta Anesthesia Type: General Operative Notes Findings: Highly comminuted humeral head fracture with part of the head dislocated from the glenoid. Four part proximal humerus fracture with a head split the articular aspect of the head dislocated from the joint with the greater tuberosity and lesser tuberosity as separate fragments with the rotator cuff still attached to the lesser and greater tuberosity. Closure Type: primary Specimen(s): none sent Applied: implant(s) (Arthrex reverse total shoulder arthroplasty 5 stem 36 neutral suture cup and a +3 humeral insert 24 mm +2 lateral base plate 36+ 4 lateral glenosphere 4 peripheral locking screws) Estimated Blood Loss (mL): 200 Blood products transfused: none Procedure in detail: On date of service, Patient was met in the holding area. The operative site was signed and witnessed by the OR staff. The surgeries once again discussed with the patient and any remaining questions they had were answered fully. Patient was taken back to the operating theater and placed on the operating table in a supine position. Great care was taken to ensure that all bony prominences were properly padded. Patient was then placed into the beach chair position. The head and neck were properly positioned and secured. A timeout was performed verifying patient's name, procedure, and the operative site. The upper extremity was then prepped and draped in the normal sterile fashion. Previously, the bony anatomy and incision were marked out as well as injected with Marcaine with epinephrine. A deltopectoral approach was performed. 10 blade was used to incise the skin and fascial tissue. A deep knife was used to continue sharp dissection until the cephalic vein was visualized. The cephalic vein was dissected free allowing us to expose the deltopectoral interval. This interval was then developed. A Andrade elevator was used to free up the deltoid of any scarring both superficially as well as deeply. The vein and the deltoid were taken laterally while the pectoralis was taken medially. This gave us good visualization of the strap muscles. The clavipectoral fascia was removed and the strap muscles were then retracted medially with the pectoralis. As mentioned above, patient had a fracture as well as a dislocation. We were able to remove the articular surface of the humeral head which was dislocated anteriorly. Once this was removed we were able to find the lesser tuberosity would still have the subscapularis attached. This was tagged with an Ethibond suture. There was a large greater tuberosity fragment that had the remaining rotator cuff attached to it. This was also tagged with an Ethibond suture. Once we had our rotator cuff and tuberosities identified, we turned our attention to the glenoid. The degenerative anterior and inferior capsular tissue was removed. This was followed by removing the degenerative labral tissue from around the glenoid as well as the biceps insertion. This gave us good visualization of the glenoid. Guide pin was placed in the center of the glenoid. This gave us a good idea of the ventral screw length. Cannulated drill bit was placed over the guidewire and drilled. This was followed by a small Reamer then by the actual Reamer for the glenoid sphere which measured out to be a small. Copious irrigation was performed after all drilling and reaming. Once the glenoid was reamed the center hole was tapped. A 24 mm base plate was screwed into place. Locking screws were then placed superior and inferiorly is wears anteriorly and posteriorly. We had very good screw lengths for all 4 screws. Once the base placed was securely fixated to the glenoid the glenoid sphere was impacted into place in the center screw was placed for additional fixation. The area was then copiously irrigated and we turned our attention to the humerus. We Return to our attention back to the humerus. The humerus was then reamed and broached. Trial stem was placed and then reamed for the placement of the cup. Trial liners were trialed as well and the shoulder was reduced and taken through range of motions. The +3 liner provided the most optimal stability. The trial components were removed and the final components were impacted into the humerus. A +3 liner was placed in the shoulders was reduced and taken through range of motion and was felt to be quite stable. Next, using FiberWire suture through the subscapularis and lesser tuberosity were sutured to the anterior aspect of the humeral stem. FiberWire suture was also placed closing the interval between the supraspinatus and the subscapularis. In the greater tuberosity fragment was also then repaired on to the lateral posterior aspect of the humeral implant. Multiple FiberWire sutures were passed to secure the rotator cuff around the component. The shoulder was copiously irrigated with pulse lavage and a drain was placed. The shoulder was closed in layered fashion and patient was extubated and taken to the PACU in stable condition. Complications: none Post-operative Condition: stable Disposition: PACU Plan for aftercare: Patient will be in the sling for 6 weeks. Since we repaired the rotator cuff back on to the prosthesis will need to protect her shoulder like we would for a total shoulder arthroplasty.
[2021-03-26] MEDS: FLUTICASONE 120 SPRAY/16 GM SPRAY.SUSP NASAL (20:38)
[2021-03-26] MEDS: VANCOMYCIN 1,000 MG/200 ML PIGGYBACK 200 MG IV (20:38)
[2021-03-26] MEDS: DOCUSATE 100 MG CAPSULE PO (20:38)
[2021-03-26] MEDS: cloNIDine 0.1 MG TABLET PO (20:38)
[2021-03-26] MEDS: PANTOPRAZOLE DR 40 MG TABLET PO (20:38)
[2021-03-26] MEDS: NORTRIPTYLINE HCL 25 MG CAPSULE 50 MG PO (20:38)
[2021-03-26] MEDS: buPROPion SR 150 MG TAB PO (20:38)
[2021-03-26] MEDS: INSULIN GLARGINE 100 UNIT/ML 3ML PEN 50 UNIT SUBCUT (20:43)
[2021-03-26] MEDS: INSULIN LISPRO 100 UNIT/ML 3ML VIAL SUBCUT (20:48)
[2021-03-26] MEDS: OXYCODONE IR 5 MG TABLET PO (23:22)
[2021-03-27] VITALS (9 sets, daily range): BP systolic 105–150; BP diastolic 52–72; PULSE 78–130; RESP 16–20; TEMP 35.9–36.8; O2SAT 90–97
--- NOTE | 2021-03-27 02:37 | PC.NURSE ---
patient is alert and oriented. Breath sounds diminished but CTA with RA sat of 92%. HRR w/rate of 105 bpm. Denied nausea. BT present and stated she is passing flatus. Voiding on BSC; denies dysuria, frequency or urgency. Is able to move herself in bed and gets up with 1 assist. Aquacel dressing to right UE is CDI; hemovac is intact and compressed. Notable for bruising of upper arm/axilla. Good radial pulse but states arm from elbow down still tingles. Rated pain severity as 6/10 and was medicated with Oxycodone and ice pack applied and is currently asleep. Is wearing bilateral calf SCD's. Fall risk score is high and bed alarm is activated.
[2021-03-27] MEDS: LACTATED RINGERS 1,000 ML 125 ML IV (02:51)
[2021-03-27] MEDS: HYDROMORPHONE 0.5 MG INJ 0.2 MG IV (04:41)
[2021-03-27 06:23] LABS: Hematocrit 25.5 % (36-46); Hemoglobin 8.5 g/dL (12.0-16.0); Mean Corpuscular HGB Conc 33.4 % (30-36); Mean Corpuscular Hemoglobin 28.8 PG (26-34); Platelet Count 358 X10^3/uL (150-400); Red Blood Cell Count 2.96 X10^6/uL (4.0-5.2); White Blood Cell Count 11.4 X10^3/uL (4.5-11.0)
--- NOTE | 2021-03-27 08:04 | P.PN_ITS ---
Subjective Subjective Date Patient Seen: 03/27/21 Time Patient Seen: 08:04 Interval history: Patient's pain is moderate. Denies fever or chills. No nausea or vomiting. No chest pain or shortness of breath. Exam Vital Signs (past 8 hours): - 03/27/21 04:04 03/27/21 07:26 Temperature 97.2 F L 98.2 F Pulse Rate 78 115 H Respiratory Rate 16 17 Blood Pressure 120/66 143/72 H Pulse Oximetry 92 92 Oxygen Delivery Method Room Air Oxygen Flow Rate 0 Narrative Exam Narrative: 60-year-old female resting comfortably in bed having breakfast in no apparent distress. Objective Labs Result Diagrams: 03/27/21 06:00 Labs: Laboratory Results - last 24 hr 03/26/21 03/27/21 09:15 06:00 WBC 11.4 H RBC 2.96 L Hgb 8.5 L Hct 25.5 L MCV 86.0 MCH 28.8 MCHC 33.4 RDW 15.0 H Plt Count 358 SARS-CoV-2 (PCR) Negative [facility] Medical History Acquired hypothyroidism (01/14/16) Anxiety (05/12/17) Asthma Body mass index (BMI) of 40.1 to 44.9 in adult (01/06/17) GERD (gastroesophageal reflux disease) (05/27/11) H/O migraine Mixed hyperlipidemia (05/27/11) Moderate persistent asthma without complication (05/27/11) Morbid obesity due to excess calories (01/06/17) Recurrent major depressive disorder, in partial remission (05/12/17) Type 2 diabetes mellitus with diabetic polyneuropathy (08/21/15) Type 2 diabetes mellitus with hyperglycemia, with long-term current use of insulin (04/15/16) Surgical History Fracture S/P total abdominal hysterectomy and bilateral salpingo-oophorectomy Status post cholecystectomy Surgical procedure planned Social History marital status: number of children: 3 household members: significant other lives independently: Yes caregiver/support person: No housing: apartment pets and animals: Yes education level: college occupational status: disabled current occupational exposures/hazards: No Previous occupational history: Restuarant liliam/oriental orthodox: [employer] leisure activities: other Smoking Status: Former smoker Tobacco: How many years used: 10 Smokeless tobacco user: other quit status: quit date established alcohol intake: never substance use type: other Assessment & Plan Post-op Postoperative Procedures: Procedures Operation Date: 03/26/21 11:15 Actual Procedures Side Surgeon p Total Shoulder Arthroplasty - Reverse, Open Reduction of the dislocated humeral head Right Marcus Barillas MD Postop day 1 status post reverse total shoulder arthroplasty secondary to fracture dislocation proximal humerus.Sling for [address] Barillas was able to repair rotator cuff back on the prosthesis and will need to protect her shoulder likely would for total shoulder arthroplasty. To bone loss during surgery. Estimated blood loss during surgery was 200 mL. Hemoglobin 8.5 hematocrit 25.5 today. Repeat tomorrow a.m.. BMI 46 Patient to work with physical therapy today. Discharge home tomorrow.
--- NOTE | 2021-03-27 09:31 | PM.CN ---
History of Present Illness Consult details Date Patient Seen: 03/27/21 Time Patient Seen: 09:32 Chief complaint: IP Reason for consult: Sugar management Meds Home Medications and Allergies Home Medications Medication Instructions Recorded Confirmed Type Disabled Parking Permit ea #1 05/18/17 02/09/21 Rx insulin lispro 100 unit/mL See Rx Instructions SUBCUT QACHS 09/18/18 03/26/21 Rx subcutaneous pen PRN #3 each glucagon (human recombinant) 1 mg 1 mg SUBCUT Q20M PRN 11/25/19 03/25/21 History solution for injection liraglutide 0.6 mg/0.1 mL (18 mg/3 1.2 mg SUBCUT DAILY 08/13/20 03/26/21 History mL) subcutaneous pen injector omeprazole 40 mg capsule,delayed 40 mg PO BID #180 cap 08/13/20 03/26/21 Rx release amlodipine 5 mg tablet 5 mg PO DAILY #90 tab 09/01/20 03/26/21 Rx bupropion HCl 150 mg tablet,12 hr 150 mg PO BID #60 tab 09/07/20 03/26/21 Rx sustained-release pen needle, diabetic 31 gauge x See Rx Instructions .ROUTE 09/15/20 03/25/21 Rx 3/16 .COMPLEX #250 ea duloxetine 40 mg capsule,delayed 40 mg PO QDAY #30 cap 10/05/20 03/26/21 Rx release blood sugar diagnostic #360 each 10/19/20 03/26/21 Rx galcanezumab-gnlm 120 mg/mL 120 mg SUBCUT QMONTH #1 ml 10/19/20 03/26/21 Rx subcutaneous syringe losartan 100 mg tablet 100 mg PO DAILY #60 tab 10/26/20 03/26/21 Rx atorvastatin 40 mg tablet 40 mg PO QDAY #90 tab 11/02/20 03/26/21 Rx nortriptyline 50 mg capsule 50 mg PO HS #90 cap 12/04/20 03/26/21 Rx insulin glargine 100 unit/mL (3 50 unit SUBCUT QDAY #45 ml 12/24/20 03/26/21 Rx mL) subcutaneous pen clonidine HCl 0.1 mg tablet 0.1 mg PO BID #180 tab 01/26/21 03/26/21 Rx albuterol sulfate 2.5 mg INHALATION Q4-6H PRN #180 ml 02/09/21 03/26/21 Rx calcium carbonate 320 mg calcium 2,250 mg PO DAILY #250 tab 02/09/21 03/26/21 Rx (750 mg) chewable tablet cholecalciferol (vitamin D3) 50 50 mcg PO DAILY #90 cap 02/09/21 03/26/21 Rx mcg (2,000 unit) capsule desonide 0.05 % topical cream 1 applic TOP TID PRN gram 02/09/21 03/25/21 History fluticasone propionate 230 2 puff INHALATION BID #12 g 02/09/21 03/25/21 Rx mcg-salmeterol 21 mcg/actuation HFA inhaler fluticasone propionate 50 2 spray INTRANASAL BEDTIME #16 g 02/09/21 03/26/21 Rx mcg/actuation nasal spray,suspension mecobalamin (vitamin B12) 1,000 1,000 mcg PO DAILY #90 tab 02/09/21 03/26/21 Rx mcg chewable tablet triamcinolone acetonide 0.1 % 1 applic TOP QID PRN gram 02/09/21 03/25/21 History topical cream ondansetron 4 mg PO Q8H PRN #10 tab 03/20/21 03/25/21 Rx oxycodone 5 mg PO Q6H PRN #14 tab 03/20/21 03/26/21 Rx epinephrine [EpiPen 2-Bon] 0.3 mg IM SEE INSTRUCTIONS PRN 03/25/21 03/25/21 History topiramate [Topamax] 200 mg PO DAILY 03/26/21 03/26/21 History Allergies Allergy/AdvReac Type Severity Reaction Status Date / Time aspirin [ASPIRIN] Allergy Severe Breathing Verified 03/20/21 06:52 problem erythromycin base Allergy Severe Throat Verified 03/20/21 06:52 [ERYTHROMYCIN BASE] closes sumatriptan [SUMATRIPTAN] Allergy Severe Anaphylaxis Verified 03/20/21 06:52 meperidine [MEPERIDINE] Allergy Mild Rash Verified 03/20/21 06:52 acetaminophen [From VICODIN] Allergy Unknown Verified 03/20/21 06:52 hydrocodone [From VICODIN] Allergy Unknown Verified 03/20/21 06:52 adhesive tape Allergy Rash Verified 03/26/21 11:28 NSAIDS (Non-Steroidal Allergy Verified 03/26/21 11:44 Anti-Inflamma sweet potato Allergy Anaphylaxis Verified 03/26/21 11:44 ibuprofen [IBUPROFEN] AdvReac Mild Headache, Verified 03/20/21 06:52 vomiting Review of Systems Review of Systems ROS: Yes All systems reviewed with the patient and are negative except as otherwise documented Exam Vital Signs (past 8 hours): - 03/27/21 04:04 03/27/21 07:26 Temperature 97.2 F L 98.2 F Pulse Rate 78 115 H Respiratory Rate 16 17 Blood Pressure 120/66 143/72 H Pulse Oximetry 92 92 Oxygen Delivery Method Room Air Oxygen Flow Rate 0 Narrative Exam Narrative: Alert female smiling interactive lying in bed comfortable. No other changes. Lungs are clear. Heart regular rate and rhythm. Patient has bandaged incision on right upper shoulder no blood Objective Labs Result Diagrams: 03/27/21 06:00 Labs: Laboratory Results - last 24 hr 03/26/21 03/27/21 09:15 06:00 WBC 11.4 H RBC 2.96 L Hgb 8.5 L Hct 25.5 L MCV 86.0 MCH 28.8 MCHC 33.4 RDW 15.0 H Plt Count 358 SARS-CoV-2 (PCR) Negative Assessment & Plan Assessment & Plan narrative: Right shoulder fracture/humerus fracture status post repair doing well no other major issues as per Orthopedics Type 2 diabetes. Certainly control is not on perfect line she is not going to be here that long. Sugars running in the 200s will increase her sliding scale to maximum and re-evaluate but her control has been quite good at home she is good at that she will follow as outpatient. Anemia. Probably secondary to surgical blood loss. Would consider iron replacement on discharge. Asthma. Seems to be stable will continue to follow. Continue usual meds. Hypertension. Adequately controlled at this time. She does have slight increase in her pulse which I suspect is secondary to her blood loss but will watch closely. Certainly regular and having no complaints. Will see how things go but no change at this time. Morbid obesity. Certainly impacts healing and her ability to mobilize. Also her breathing issues. Appears to be stable at this time but will need help with mobilization will follow. Disposition. Discussed with orthopedist. Suspect this will be just a 24 hour more stay. I think we are doing well knee no other changes at this time.
[2021-03-27] MEDS: OXYCODONE IR 10 MG TABLET PO ×2 (09:33→12:35)
[2021-03-27] MEDS: DOCUSATE 100 MG CAPSULE PO ×2 (09:34→20:14)
[2021-03-27] MEDS: DULOXETINE 20 MG CAPSULE 40 MG PO (09:34)
[2021-03-27] MEDS: buPROPion SR 150 MG TAB PO ×2 (09:34→20:17)
[2021-03-27] MEDS: ATORVASTATIN 20 MG TABLET 40 MG PO (09:34)
[2021-03-27] MEDS: TOPIRAMATE 25 MG TABLET 200 MG PO (09:34)
[2021-03-27] MEDS: AMLODIPINE 5 MG TABLET PO (09:34)
[2021-03-27] MEDS: CHOLECALCIFEROL (VITAMIN D3) 1,000 UNIT TABLET 2000 UNIT PO (09:34)
[2021-03-27] MEDS: cloNIDine 0.1 MG TABLET PO ×2 (09:34→20:13)
[2021-03-27] MEDS: LOSARTAN 50 MG TABLET 100 MG PO (09:34)
[2021-03-27] MEDS: PANTOPRAZOLE DR 40 MG TABLET PO ×2 (09:34→20:14)
[2021-03-27] MEDS: ALBUTEROL 2.5 MG/3 ML NEB (ADULT) INH ×2 (09:35→13:45)
[2021-03-27] MEDS: BUDESONIDE 0.5 MG/2 ML NEB INH (09:35)
--- NOTE | 2021-03-27 11:30 | PT.IIE ---
Current Diagnoses Other displaced fracture of upper end of right humerus, initial encounter for closed fracture (03/26/21) Fracture of right shoulder girdle, part unspecified, initial encounter for closed fracture (03/26/21) Surgery Performed Operation Date: 03/26/21 11:15 Actual Procedures p Total Shoulder Arthroplasty - Reverse, Open Reduction of the dislocated humeral head(Right) - Marcus Barillas MD Surgical History (Last Reviewed 03/27/21 @ 09:38 by Floyd Méndez MD) Fracture S/P total abdominal hysterectomy and bilateral salpingo-oophorectomy Status post cholecystectomy Surgical procedure planned Medical History (Last Reviewed 03/27/21 @ 09:38 by Floyd Méndez MD) Acquired hypothyroidism (01/14/16) Anxiety (05/12/17) Asthma Body mass index (BMI) of 40.1 to 44.9 in adult (01/06/17) GERD (gastroesophageal reflux disease) (05/27/11) H/O migraine Mixed hyperlipidemia (05/27/11) Moderate persistent asthma without complication (05/27/11) Morbid obesity due to excess calories (01/06/17) Recurrent major depressive disorder, in partial remission (05/12/17) Type 2 diabetes mellitus with diabetic polyneuropathy (08/21/15) Type 2 diabetes mellitus with hyperglycemia, with long-term current use of insulin (04/15/16) Physical Therapy Inpatient Evaluation/Re-Eval M1 PT/OT-IP Prior Functional Status Start: 03/27/21 12:15 Freq: NEEDED Status: Active Protocol: Document 03/27/21 11:30 AB (Rec: 03/27/21 12:34 AB [id number]) Medical Review Prior Functional Status Medical History Reviewed Yes Communication able to make needs known Mobility and Gait pt stated that she is modified independent with all mobilities and ambulation without AD but occasionally uses a 4WW when she has vertigo per pt; pt stated that she is legally blind and has tunnel vision Social History Household Members significant other Living Arrangements Apartment/Condo Number of Floors (Floors) One Floor Number of Stairs To Enter/Railing? 1 step to enter Home Environment Standard Height Toilet,Tub/ Shower Home Equipment Four Wheel Walker,Straight Cane,Tub Transfer Bench,Hand Held Shower Employment Status Unemployed Additional Social History Comment pt stated that she had a fall a week ago and broke her shoulder. ER sent her home on a sling and was able to manage at home with assist of her BF. stated that she only gets up when she has to use the toilet since then. M2 PT-IP Current Condition Start: 03/27/21 12:15 Freq: NEEDED Status: Active Protocol: Document 03/27/21 11:30 AB (Rec: 03/27/21 12:34 [email or web address]) Physical Therapy Current Condition Current Condition Evaluation Date 03/27/21 Treatment Diagnosis R prox humeral fx s/p TSA reverse; difficulty in walking Onset Date 03/26/21 Precautions Shoulder Precautions Sling,PROM,Internal Rotation to Body,No External Rotation, No Abduction,Forward Flexion to 90 degrees,Pendulums Other Precautions falls Weight Bearing Status Weight Bearing Status Non-Weight Bearing Allowed Weight Bearing Amount (enter % RUE: NWB or #) (%) M3 PT-IP Subjective Start: 03/27/21 12:15 Freq: NEEDED Status: Active Protocol: Document 03/27/21 11:30 AB (Rec: 03/27/21 12:34 AB [email or web address]) Subjective Physical Therapy Visit Type Type Initial Evaluation Visit Start Time 11:30 Visit Stop Time 12:10 Total Visit Minutes 40 Number of FRONT OFFICE AGENT Visits 0 Physical Therapy Visit Comments Patient Comments pt is agreeable to do PT Therapy Pain Assessment Pain When Pain Assessed At Rest Pain Present Pain Present Pain Reported Location Right Elbow Intensity 8 Scale Used Numeric (0 - 10) Pain Management Techniques Distraction,Modification of Treatment,Re-positioning, Timing of Activity with Medications Right Upper Arm Intensity 8 Scale Used Numeric (0 - 10) Pain Management Techniques Distraction,Modification of Treatment,Re-positioning, Timing of Activity with Medications M4 PT-IP Mobility and Gait Start: 03/27/21 12:15 Freq: NEEDED Status: Active Protocol: Document 03/27/21 11:30 AB (Rec: 03/27/21 12:34 [email or web address]) PT-Bed Mobility Assessment Supine to Sit Supine to Sit Minimal Assistance,Bedrails PT-Transfer Assessment Sit to and From Stand Sit to and from Stand Contact Guard Assistance,1 Person Assistance,Use of Upper Extremities Equipment Transfer Assistive Device None,Gait Belt Orthotic/Prosthetic Devices or Brace: Yes Transfers Transfer Destination Chair Transfer Technique ambulated without AD Transfer Ability Level of Assist Minimal Assistance,Use of Upper Extremities Comments Mobility Comments educated pt on shoulder precautions. pt completed supine to sit min A and cues. pt used bed rail to assist. pt stated that she uses her dresser to pull from to get up from the bed and her BF can assist her. pt was able to sit on EOB SBA. assisted and educated on sling management. completed elbow, wrist/hand/ finger exercises. educated on pendulum exercise but pt refused to try at this time due to c/o pain. completed sit to stand CGA and ambulated in room ~ 15 ft without AD min A and cues. presents with unsteady waddling gait with decrease step lenght. pt sat on chair and rested. agreed to do ambulation using SPC. completed ~ 15 ft using SPC CGA and cues. pt sat back on chair. set up for lunch. call light and table placed within reach. informed pt regarding caregiver training and agreed. pt stated that she is not going home today and prefers caregiver training tomorrow. set up caregiver training tomorrow at 10 am. Gait Assessment Gait Gait Assistance Required: Contact Guard Assist,Minimum Assistance,1 Person Assist Distance (Feet) 15 Assistive Devices Assistive Device None,Gait Belt,Straight Cane Orthotic/Prosthetic Devices or Brace: Yes Gait Deviations General Gait Pattern Antalgic,Decreased Stride Length,Decreased Feet Clearance,Step-to Gait Factors Limiting Gait Function Factors Limiting Gait Function Decreased Activity Tolerance, Decreased Strength,Limited Range of Motion,Pain,Poor Balance Comments Gait Comments pls refer to mobility section for details PT-Balance Assessment Sitting Balance and Reactions Static Sitting Balance Ability Good Dynamic Sitting Balance Ability Good Standing Balance and Reactions Static Standing Balance Ability Fair Dynamic Standing Balance Ability Fair Device Used without AD M5 PT-IP Objective Assessments Start: 03/27/21 12:15 Freq: NEEDED Status: Active Protocol: Document 03/27/21 11:30 AB (Rec: 03/27/21 12:34 AB [id number]) Orientation Orientation/Cognition Level of Alertness Alert Orientation Name,Place,Situation Language Function Ability No Deficits Noted Safety Awareness Decreased Safety Awareness Memory Description No Deficits Noted Gross Range of Motion Lower Extremity ROM Assessment Within Functional Limits Strength Lower Extremity Strength Assessment Within Functional Limits Sensation Assessment Sensation Gross Sensation WNL Muscle Tone Muscle Tone WNL Yes M6 PT-IP Treatment Start: 03/27/21 12:15 Freq: NEEDED Status: Active Protocol: Document 03/27/21 11:30 AB (Rec: 03/27/21 12:34 AB [id number]) Physical Therapy Treatment Exercises Exercises Elbow Flexion/Extension,Wrist ROM,Hand ROM Education Education Provided Precautions,Weight Bearing Status,Post-Op Packet,Safety Brace Education [place],Patient Other Treatments Other Treatment Performed educated on sling management, pendulum, elbow/hand/finger exercises M7 PT-IP Assessment and Plan Start: 03/27/21 12:15 Freq: NEEDED Status: Active Protocol: Document 03/27/21 11:30 AB (Rec: 03/27/21 12:34 AB [id number]) PT Summary Assessment and Plan Potential Rehabilitation Potential Good Status of Condition at Evaluation Stable Summary Impairments Pain,ROM,Strength,Balance, Coordination,Sensation,Tone, Cognition,Bed Mobility, Transfers,Gait,Activity Tolerance Assessment Summary pt requiring min A with mobiltiy without AD, CGA using SPC. c/o increase pain affecting mobility. pt plans to go home with her boyfriend to assist her. caregiver training set up for tomorrow at 10 am. will continue to assess progress. Goals Bed Mobility Goal Standby Assistance Transfer Goal Standby Assistance,Cane Gait Goal Standby Assistance,Cane Gait Distance 100 Other Goals improve ambulation without AD 75 ft SBA up/down 1 step using SPC/ without AD SBA Days to Meet Goals 5 Frequency of Treatment Frequency Of Treatment Twice a Day Treatment Plan Physical Therapy Treatment Plan Bed Mobility Training,Transfer Training,Gait Training, Therapeutic Exercise,Balance Retraining,Post Op Education, Discharge Planning,Hot or Cold Pack,Neuromuscular Re-ed, Coordination Retraining,Manual Therapy Precautions Shoulder Precautions Sling,PROM,Internal Rotation to Body,No External Rotation, No Abduction,Forward Flexion to 90 degrees,Pendulums Recommendations To Nursing Amount of Assist Needed 1 Person Assist Discharge Recommendations PT Discharge Recommendations Home with 08/05 Assist Available,Home Health Transportation Needs at Discharge Private Vehicle
[2021-03-27] MEDS: INSULIN LISPRO 100 UNIT/ML 3ML VIAL SUBCUT ×3 (12:01→21:13)
--- NOTE | 2021-03-27 12:13 | CM.IDA ---
Initial DCP Assessment Note Pt is a 60 yo female, resident of [place], now POD#1 from shoulder surgery w/ Dr Barillas. Patient sustained a fracture/dislocated humerus after a GLF 03.20.21 and followed up w/ Dr Barillas in clinic, at which time surgery was recommended and scheduled. PMH includes type 2 diabetes, anemia, asthma, HTN w/ BMI of 46 PCP: Sheng Gomes Payer: Willie CASTELLANO/PARMINDER Reviewed chart, pt discussed in multidisciplinary rounds this morning. Ortho note indicates DC home expected tomorrow 03.28.21 Met w/patient to introduce role; patient states she plans to return home tomorrow, patient lives w/ S.O. and he will be here tomorrow, they plan to get a taxi home because they do not drive. No therapy notes on chart for review at this time, will keep in close contact w/patient and therapy team in the case that any DC needs or concerns arise. PARIS Boateng Discharge Planning/Care Management CM Discharge Assessment Start: 03/27/21 12:06 Freq: Status: Active Protocol: Document 03/27/21 12:07 ELIZABETH (Rec: 03/27/21 12:13 ELIZABETH [id number]) Discharge Planning Assessment Assigned Apparel Sales Associate PARIS Wilkerson DPOA/Assigned Designee Name Emma Ibarra dtr Contact Information [phone] Advance Directives? Yes Advance Directives on File No History Provided By Patient Prior Living Arrangements Apartment/Condo Household Members significant other Type of transporation used prior to Drives own vehicle admit Independent with ADL's Yes Is patient alert and oriented? Yes Barriers to Discharge No Comment Patient plans to return home w /bf to assist and expects no DC needs from DCP team Discharge Plan Home Transportation Arrangement S.O. Referrals Initiated None needed Additional Comment At this time Whiteboard Updated in Patient Room with Yes name and ext. # of Apparel Sales Associate
--- NOTE | 2021-03-27 14:27 | PT.IPTN ---
Current Diagnoses Other displaced fracture of upper end of right humerus, initial encounter for closed fracture (03/26/21) Fracture of right shoulder girdle, part unspecified, initial encounter for closed fracture (03/26/21) Surgery Performed Operation Date: 03/26/21 11:15 Actual Procedures p Total Shoulder Arthroplasty - Reverse, Open Reduction of the dislocated humeral head(Right) - Marcus Barillas MD Physical Therapy Treatment Note M2 PT-IP Current Condition Start: 03/27/21 12:15 Freq: NEEDED Status: Active Protocol: Document 03/27/21 11:30 AB (Rec: 03/27/21 12:34 AB [id number]) Physical Therapy Current Condition Current Condition Evaluation Date 03/27/21 Treatment Diagnosis R prox humeral fx s/p TSA reverse; difficulty in walking Onset Date 03/26/21 Precautions Shoulder Precautions Sling,PROM,Internal Rotation to Body,No External Rotation, No Abduction,Forward Flexion to 90 degrees,Pendulums Other Precautions falls Weight Bearing Status Weight Bearing Status Non-Weight Bearing Allowed Weight Bearing Amount (enter % RUE: NWB or #) (%) M3 PT-IP Subjective Start: 03/27/21 12:15 Freq: NEEDED Status: Active Protocol: Document 03/27/21 14:06 CLB (Rec: 03/27/21 15:04 CLB [id number]) Subjective Physical Therapy Visit Type Type Treatment Note Visit Start Time 14:06 Visit Stop Time 14:27 Total Visit Minutes 21 Notes Pt's BENNY Terrazas entered room at end of tx and confirmed he will be available for CG training tomorrow at 10:00. Number of RECORDS SECTION SUPERVISOR Visits 1 Physical Therapy Visit Comments Patient Comments pt is agreeable to do PT Therapy Pain Assessment Pain When Pain Assessed At Rest Pain Present Pain Present Pain Reported Location Right Upper Arm Intensity 6 Scale Used Numeric (0 - 10) Pain Management Techniques Distraction,Modification of Treatment,Re-positioning, Timing of Activity with Medications M4 PT-IP Mobility and Gait Start: 03/27/21 12:15 Freq: NEEDED Status: Active Protocol: Document 03/27/21 14:06 CLB (Rec: 03/27/21 15:04 CLB [id number]) PT-Bed Mobility Assessment Supine to Sit Supine to Sit Standby Assistance,Head of Bed Elevated Sit to Supine Sit to Supine Standby Assistance,Head of Bed Elevated PT-Transfer Assessment Sit to and From Stand Sit to and from Stand Contact Guard Assistance,1 Person Assistance,Use of Upper Extremities Equipment Transfer Assistive Device None,Gait Belt,Straight Cane Orthotic/Prosthetic Devices or Brace: Yes Transfers Transfer Destination Bed,Chair Transfer Technique ambulated without AD Transfer Ability Level of Assist Contact Guard Assistance,1 Person Assistance,Use of Upper Extremities Comments Mobility Comments Pt able to get to EOB SBA, pt stood CGA w/o AD and ambulated ~10ft Min A, Pt then ambulated with SPC/CGA. Pt with some nausea needing to sit down. Pt then stood and transferred to chair, pt performed elbow, wrist and finger ther ex but refused pendulum stating she would try it tomorrow. Pt then stood CGA and transferred to bed CGA and requiring SBA for sit- supine. Left pt in bed with all needs within reach and SO Mk entering room at end of tx. Gait Assessment Gait Gait Assistance Required: Contact Guard Assist,Minimum Assistance,1 Person Assist Distance (Feet) 30 Assistive Devices Assistive Device None,Gait Belt,Straight Cane Orthotic/Prosthetic Devices or Brace: Yes Gait Deviations General Gait Pattern Antalgic,Decreased Stride Length,Decreased Feet Clearance,Step-to Gait Factors Limiting Gait Function Factors Limiting Gait Function Decreased Activity Tolerance, Decreased Strength,Limited Range of Motion,Pain,Poor Balance Comments Gait Comments pls refer to mobility section for details M5 PT-IP Objective Assessments Start: 03/27/21 12:15 Freq: NEEDED Status: Active Protocol: Document 03/27/21 11:30 AB (Rec: 03/27/21 12:34 AB [id number]) Orientation Orientation/Cognition Level of Alertness Alert Orientation Name,Place,Situation Language Function Ability No Deficits Noted Safety Awareness Decreased Safety Awareness Memory Description No Deficits Noted Gross Range of Motion Lower Extremity ROM Assessment Within Functional Limits Strength Lower Extremity Strength Assessment Within Functional Limits Sensation Assessment Sensation Gross Sensation WNL Muscle Tone Muscle Tone WNL Yes M6 PT-IP Treatment Start: 03/27/21 12:15 Freq: NEEDED Status: Active Protocol: Document 03/27/21 14:06 CLB (Rec: 03/27/21 15:04 CLB [id number]) Physical Therapy Treatment Exercises Exercises Elbow Flexion/Extension,Wrist ROM,Hand ROM Education Education Provided Precautions,Weight Bearing Status,Post-Op Packet,Safety Brace Education Donning,Benson,Patient Other Treatments Other Treatment Performed educated on sling management, pendulum, elbow/hand/finger exercises M7 PT-IP Assessment and Plan Start: 03/27/21 12:15 Freq: NEEDED Status: Active Protocol: Document 03/27/21 14:06 CLB (Rec: 03/27/21 15:04 CLB [id number]) PT Summary Assessment and Plan Potential Rehabilitation Potential Good Status of Condition at Evaluation Stable Summary Impairments Pain,ROM,Strength,Balance, Coordination,Sensation,Tone, Cognition,Bed Mobility, Transfers,Gait,Activity Tolerance Assessment Summary Pt requires CGA w/SPC and is unsafe at this time to ambulate w/o AD, pt is SBA for bed mobility and BENNY Terrzaas is scheduled to come tomorrow for CG training. Goals Bed Mobility Goal Standby Assistance Transfer Goal Standby Assistance,Cane Gait Goal Standby Assistance,Cane Gait Distance 100 Other Goals improve ambulation without AD 75 ft SBA up/down 1 step using SPC/ without AD SBA Days to Meet Goals 5 Frequency of Treatment Frequency Of Treatment Twice a Day Treatment Plan Physical Therapy Treatment Plan Bed Mobility Training,Transfer Training,Gait Training, Therapeutic Exercise,Balance Retraining,Post Op Education, Discharge Planning,Hot or Cold Pack,Neuromuscular Re-ed, Coordination Retraining,Manual Therapy Other Recommendations and Next Treatment CG training on 03/28 @ 10:00 Focus with BENNY Terrazas. Precautions Shoulder Precautions Sling,PROM,Internal Rotation to Body,No External Rotation, No Abduction,Forward Flexion to 90 degrees,Pendulums Recommendations To Nursing Amount of Assist Needed 1 Person Assist Discharge Recommendations PT Discharge Recommendations Home with 24/7 Assist Available,Home Health Transportation Needs at Discharge Private Vehicle
--- NOTE | 2021-03-27 17:42 | PC.NURSE ---
Addendum entered by Honey Fisher R.N. 03/27/21 21:41: Satisfactory post op course. Right arm remains in sling. Denies discomfort CMS +++ HS CBG =277, Lantu & S/S given as per orders. Hemavac intact/patent.. SCD senior validation engineer light w/in reach, bed alarm on for pt safety. Continue w/plan of care. Original Note: Pt Resting atintervals. Denies discomfort @ this time. Aquacell dsg to right shoulder CDI Hemavac intact/patent HL left hand intact/patent. AC CBG = 385; 12u coverage given. SCD in place. Call light w/in reach, bed alarm on for pt safety.
[2021-03-27] MEDS: FLUTICASONE 120 SPRAY/16 GM SPRAY.SUSP NASAL (20:19)
[2021-03-27] MEDS: INSULIN GLARGINE 100 UNIT/ML 3ML PEN 50 UNIT SUBCUT (21:10)
[2021-03-27] MEDS: NORTRIPTYLINE HCL 25 MG CAPSULE 50 MG PO (21:19)
[2021-03-28] VITALS: BP 132/64; PULSE 110; RESP 18; TEMP 36.2; O2SAT 96
--- NOTE | 2021-03-28 00:25 | PC.NURSE ---
patient is alert and oriented. Breath sounds remain diminished but CTA with RA sat of 96%. HRR but still tachy at 110 bpm; per progress note of 03/27 MD is aware. Denied nausea. BT present and is passing flatus. Denied dysuria, frequency or urgency with urination. Moving self in bed and up to BSC with SBA. Aquacel dressing to right UE is intact with 2 small areas of shadow drainage; good radial pulse w/chronic tingling in fingers of right hand. Right arm is in sling. Hemovac is intact and compressed. Stated pain was currently 3/10 but declined pain medication; ice pack applied. Wearing bilateral calf SCD's. Fall risk score is high and bed alarm is activated.
[2021-03-28] MEDS: OXYCODONE IR 10 MG TABLET PO (01:34)
[2021-03-28 03:17] VITALS: BP 107/57; PULSE 100; RESP 18; TEMP 36.1; O2SAT 93
[2021-03-28 06:22] LABS: Hematocrit 26.7 % (36-46); Hemoglobin 8.8 g/dL (12.0-16.0)
[2021-03-28 08:01] VITALS: BP 130/70; PULSE 102; RESP 16; TEMP 36.1; O2SAT 88
[2021-03-28] MEDS: INSULIN LISPRO 100 UNIT/ML 3ML VIAL SUBCUT ×2 (08:44→11:58)
[2021-03-28] MEDS: MAGNESIUM HYDROXIDE 30 ML UDC PO (08:44)
[2021-03-28] MEDS: cloNIDine 0.1 MG TABLET PO (08:46)
[2021-03-28] MEDS: AMLODIPINE 5 MG TABLET PO (08:46)
[2021-03-28] MEDS: DULOXETINE 20 MG CAPSULE 40 MG PO (08:47)
[2021-03-28] MEDS: DOCUSATE 100 MG CAPSULE PO (08:47)
[2021-03-28] MEDS: ATORVASTATIN 20 MG TABLET 40 MG PO (08:47)
[2021-03-28] MEDS: PANTOPRAZOLE DR 40 MG TABLET PO (08:47)
[2021-03-28] MEDS: TOPIRAMATE 25 MG TABLET 200 MG PO (08:47)
[2021-03-28] MEDS: buPROPion SR 150 MG TAB PO (08:47)
[2021-03-28] MEDS: OXYCODONE IR 5 MG TABLET PO ×2 (08:48→11:36)
[2021-03-28] MEDS: LOSARTAN 50 MG TABLET 100 MG PO (08:48)
[2021-03-28] MEDS: CHOLECALCIFEROL (VITAMIN D3) 1,000 UNIT TABLET 2000 UNIT PO (08:48)
[2021-03-28] MEDS: SODIUM CHLORIDE 0.9% FLUSH 10 ML IV (08:50)
[2021-03-28 08:59] VITALS: PULSE 77; RESP 14; O2SAT 94
[2021-03-28] MEDS: BUDESONIDE 0.5 MG/2 ML NEB INH (08:59)
[2021-03-28] MEDS: ALBUTEROL 2.5 MG/3 ML NEB (ADULT) INH (08:59)
--- NOTE | 2021-03-28 09:01 | P.DS_ITS ---
History of Present Illness History of Present Illness Date Patient Seen: 03/28/21 Time Patient Seen: 09:02 Chief complaint: IP Narrative: Patient had a fall onto right shoulder 1 week ago sustaining a highly comminuted fracture of the proximal humerus with the dislocation. She subsequently underwent a reverse total shoulder arthroplasty with Dr. Barillas 2 days ago. Patient has been doing well since the time surgery. Pain is controlled. She is aware of her restrictions. She sustained a sling for the next 6 weeks. Discharge Providers Provider Date of admission: 03/26/21 09:05 Discharge Date: 03/28/21 Primary care physician: Sheng Gomes MD Consults: 03/26/21 15:02 Consult to Discharge Planning Routine Comment: Consult to Physical Therapy Evaluate & Treat Comment: Physician Instructions: Evaluate and Treat Consult to Respiratory Therapy Evaluate & Treat Comment: Physician Instructions: Evaluate and treat Discharge provider: Mikael Hartman MD Summary Hospital Course Discharge Diagnosis: Status post right reverse total shoulder arthroplasty Hospital Course: Patient was admitted for a right reverse total shoulder arthroplasty in the setting of a fracture dislocation of proximal humerus. She underwent the surgery with Dr. Barillas. She has done well from the postoperatively. Pain is controlled. Patient is aware of her restrictions. Patient is stable for discharge. Status at Discharge Cognitive/behavioral status at discharge: oriented Functional status at discharge: independent ambulation Overall status at discharge: patient is progressing back to baseline Time Spent with Patient Time spent: Less than 30 minutes Exam Vital Signs (past 8 hours): - 03/28/21 03:17 03/28/21 08:01 Temperature 97.0 F L 96.9 F L Pulse Rate 100 H 102 H Respiratory Rate 18 16 Blood Pressure 107/57 L 130/70 Pulse Oximetry 93 88 L Oxygen Delivery Method Room Air Oxygen Flow Rate 0 Narrative Exam Narrative: Aquacel dressing clean dry and intact over the right anterior shoulder no strike through. Neurovascular intact in the right upper extremity. Swelling and ecchymosis consistent with fracture and surgery. Objective Labs Result Diagrams: 03/28/21 05:50 Labs: Laboratory Results - last 24 hr 03/28/21 05:50 Hgb 8.8 L Hct 26.7 L PFSH Medical History Acquired hypothyroidism (01/14/16) Anxiety (05/12/17) Asthma Body mass index (BMI) of 40.1 to 44.9 in adult (01/06/17) GERD (gastroesophageal reflux disease) (05/27/11) H/O migraine Mixed hyperlipidemia (05/27/11) Moderate persistent asthma without complication (05/27/11) Morbid obesity due to excess calories (01/06/17) Recurrent major depressive disorder, in partial remission (05/12/17) Type 2 diabetes mellitus with diabetic polyneuropathy (08/21/15) Type 2 diabetes mellitus with hyperglycemia, with long-term current use of insulin (04/15/16) Surgical History Fracture S/P total abdominal hysterectomy and bilateral salpingo-oophorectomy Status post cholecystectomy Surgical procedure planned Social History marital status: number of children: 3 household members: significant other lives independently: Yes caregiver/support person: No housing: apartment pets and animals: Yes education level: college occupational status: disabled current occupational exposures/hazards: No Previous occupational history: Restuarant liliam/adventism: [employer]ism leisure activities: other Smoking Status: Former smoker Tobacco: How many years used: 10 Smokeless tobacco user: other quit status: quit date established alcohol intake: never substance use type: other Discharge Assessment & Plan Assessment and Plan Assessment: Patient is a 60-year-old female with no postop day 2 from a right reverse total shoulder arthroplasty for fracture dislocation of her right proximal humerus. According to Dr. Barillas operative note they were able to repair the cuff back to the implant so she will have restrictions her shoulder as if she had had a total shoulder arthroplasty. She has remained asleep the next 6 weeks. Plan of Treatment: Nonweightbearing right upper extremity. Sling for the next 6 weeks. She can shower over the dressing. Leave the dressing in place until postop visit. No active range of motion of the right shoulder. Follow-up with Dr. Barillas in 2 weeks. Discharge Plan Discharge Plan Patient Disposition: Home Provider Discharge Comment: DC home when stable Discharge orders & Medications Prescriptions: New oxycodone 10 mg Tablet 10 mg PO Q4-6H PRN (Reason: Pain) Qty: 50 RF: 0 Continued Disabled Parking Permit Qty: 1 RF: 0 insulin lispro [Humalog KwikPen Insulin] 100 unit/mL insulin pen See Rx Instructions SUBCUT QACHS PRN (Reason: DM) Qty: 3 RF: 6 bupropion HCl 150 mg tablet sustained-release 12 hr 150 mg PO BID Qty: 60 RF: 5 pen needle, diabetic [BD Ultra-Fine Mini Pen Needle] 31 gauge x 3/16 needle See Rx Instructions .ROUTE .COMPLEX Qty: 250 RF: 6 duloxetine 40 mg capsule,delayed release(DR/EC) 40 mg PO QDAY Qty: 30 RF: 11 Emgality Syringe 120 mg/mL syringe 120 mg SUBCUT QMONTH Qty: 1 RF: 12 (DME) Blood Glucose Test Strip See Dose Instructions .ROUTE .MEDSUPPLY Qty: 360 RF: 3 losartan 100 mg tablet 100 mg PO DAILY Qty: 60 RF: 6 atorvastatin 40 mg tablet 40 mg PO QDAY Qty: 90 RF: 3 nortriptyline 50 mg capsule 50 mg PO HS Qty: 90 RF: 3 Lantus Solostar U-100 Insulin 100 unit/mL (3 mL) insulin pen 50 unit subcut QDAY Qty: 45 RF: 11 clonidine HCl 0.1 mg tablet 0.1 mg PO BID Qty: 180 RF: 3 desonide 0.05 % cream 1 applic TOP TID PRN (Reason: Rash, irritation) RF: 0 triamcinolone acetonide 0.1 % cream 1 applic TOP QID PRN (Reason: Rash, skin irritation) RF: 0 Advair HFA 230-21 mcg/actuation HFA aerosol inhaler 2 puff inhalation BID Qty: 12 RF: 3 albuterol sulfate 2.5 mg /3 mL (0.083 %) solution for nebulization 2.5 mg inhalation Q4-6H PRN (Reason: shortness of breath or wheezing) Qty: 180 RF: 4 mecobalamin (vitamin B12) 1,000 mcg tablet,chewable 1,000 mcg PO DAILY Qty: 90 RF: 3 fluticasone propionate 50 mcg/actuation spray,suspension 2 spray intranasal BEDTIME Qty: 16 RF: 3 calcium carbonate [Antacid (calcium carbonate)] 320 mg calcium (750 mg) tablet,chewable 2,250 mg PO DAILY Qty: 250 RF: 3 cholecalciferol (vitamin D3) 50 mcg (2,000 unit) capsule 50 mcg PO DAILY Qty: 90 RF: 3 Glucagon Emergency Kit (human) 1 mg recon soln 1 mg SUBCUT Q20M PRN (Reason: Hypoglycemia) RF: 0 amlodipine 5 mg tablet 5 mg PO DAILY Qty: 90 RF: 3 Victoza 2-Bon 0.6 mg/0.1 mL (18 mg/3 mL) pen injector 1.2 mg SUBCUT DAILY RF: 0 omeprazole 40 mg capsule,delayed release(DR/EC) 40 mg PO BID Qty: 180 RF: 3 ondansetron 4 mg tablet,disintegrating 4 mg PO Q8H PRN (Reason: nausea and vomiting) Qty: 10 RF: 0 epinephrine [EpiPen 2-Bon] 0.3 MG/0.3 ML auto-injector 0.3 mg IM SEE INSTRUCTIONS PRN (Reason: Allergic reactions) RF: 0 topiramate [Topamax] 50 mg Tablet 200 mg PO DAILY RF: 0 Discontinued oxycodone 5 mg tablet 5 mg PO Q6H PRN (Reason: pain) Qty: 14 RF: 0 Medication counseling provided by Pharmacist: No Follow up/Referrals: Sheng Gomes MD [Primary Care Provider] - Mikael Hartman MD [Physician] - 2 Weeks (Follow up with Dr. Barillas 2 weeks after reverse total shoulder) Diet/Activity/Treatments Diet: Carb-consistent/Diabetic Activity: Right arm in sling for 6 weeks Cold/Heat Therapy: ICE the right shoulder for pain control/swelling. 15 minutes on [address] a towel between skin and ice so that ice is not directly on your skin. Skin/Wound/Dressing Care Dressing: Leave dressings in place. These will be removed at your post-op appointment. Visit Report/Discharge Packet Instructions: DI for Prescription Opioid Use, DI for Shoulder Replacement Stand Alone Forms: Surgery Discharge Discharge Data Primary Care Provider: Sheng Gomes
--- NOTE | 2021-03-28 10:45 | PC.NURSE ---
Day shift: Dave-vac removed per protocol. Pt tolerated well. Site covered w/ gauze and Tegaderm.
--- NOTE | 2021-03-28 10:52 | PC.NURSE ---
Addendum entered by Leon Souza R.N. 03/28/21 11:32: Pt's is not driving. They are taking a taxi home today. Original Note: Day shift: Paperwork signed and all questions answered. Rt arm in sling for six weeks per MD. Pt understands that she can shower with Aquacel in place but no soaking. Pt has all personal belongings. Pt has MD script for oxycodone. Pt taken to car in by MUNA Cortes. Pt's S.O. is driving her home. Pt stated she is glad to be going home but will miss the television channels we have here. Left unit at approx 1130.
--- NOTE | 2021-03-28 11:02 | CM.DPC ---
DCP/continued: Current plan is for patient to d/c home today. Copy of GRIFFIN given to patient prior to discharge. P: Home today. CAR
--- NOTE | 2021-03-28 12:33 | PC.NURSE ---
Day shift: Pt's taxi arrived and Pt left unit at approx 1230.
== END 2021-03-28 12:33 | disposition home or self-care (01) | DRG 483 ==
PROVIDERS: Physician Assistant Medical; Admitting Provider Orthopaedic Surgery; PCP Internal Medicine; Referring Provider Internal Medicine; Visit Provider Orthopaedic Surgery
PROC: 0RRJ00Z Replacement of Right Shoulder Joint with Reverse Ball and Socket Synthetic Substitute, Open Approach (ICD-10-PCS; CPT 23472; 2021-03-26 11:15)
DX: S42.291A Other displaced fracture of upper end of right humerus, initial encounter for closed fracture (principal); E66.01 Morbid (severe) obesity due to excess calories; J45.909 Unspecified asthma, uncomplicated; E11.9 Type 2 diabetes mellitus without complications; I10 Essential (primary) hypertension; E78.5 Hyperlipidemia, unspecified; K21.9 Gastro-esophageal reflux disease without esophagitis; F32.9 Major depressive disorder, single episode, unspecified; Z79.4 Long term (current) use of insulin; Z68.42 Body mass index [BMI] 45.0-49.9, adult; Y92.9 Unspecified place or not applicable; Z87.891 Personal history of nicotine dependence; Z20.822 Contact with and (suspected) exposure to COVID-19; W18.30XA Fall on same level, unspecified, initial encounter
CPT/HCPCS: 36415; 73030; 82962; 85014; 85018; 85027; 87635; 94640; 94760; 97161; 97530; C1776; C9803; J0330; J0690; J1170; J1815; J2250; J2405; J2704; J3010; J7613

== ENCOUNTER 2021-04-05 12:12 | Emergency (ER) | payer OTHER, MEDICAID, SELFPAY ==
[2021-03-26 17:21] VITALS: BMI 46.0
[2021-04-05 12:40] VITALS: BP 191/85; PULSE 119; RESP 28; TEMP 36.4; O2SAT 98; BMI 46.6
--- NOTE | 2021-04-05 13:34 | ED_ITS ---
HPI - Nausea/Vomiting/Diarrhea General Chief complaint: Nausea/Vomiting/Diarrhea Stated complaint: surgery last week, throwing up all day yesterday Time Seen by Provider: 04/05/21 13:32 Source: patient and family Mode of arrival: Ambulatory Limitations: no limitations History of Present Illness HPI Narrative: This is a 60-year-old female comes department after having fracture her right humerus with orthopedic repair on March 26. Patient states she has continued to have pain but started having nausea and vomiting yesterday and has been unable to keep anything down. She is quite uncomfortable and has not been unable to take her pain medications. She denies any fevers or chills she has pain at the site as well as down her arm and has pretty significant swelling of the upper extremity itself. She has had some tingling and numbness but does have movement. She has not had any color changes. She denies any chest pressure shortness of breath. She denies any issues with bowel movements and has been stooling regularly. She denies any urinary or GI symptoms. She denies any syncope. Patient has multiple medication allergies. She also is a insulin-dependent diabetic with history of hypertension,, dyslipidemia and asthma as well as migraines and mood disorder. Patient also notes a little bit of rash on her anterior chest and wonders if she is allergic to the covering on her incision although there is no rash at the incision site. Related Data Home Medications Medication Instructions Recorded Confirmed glucagon (human recombinant) 1 mg 1 mg SUBCUT Q20M PRN 11/25/19 03/25/21 solution for injection liraglutide 0.6 mg/0.1 mL (18 mg/3 1.2 mg SUBCUT DAILY 08/13/20 03/26/21 mL) subcutaneous pen injector desonide 0.05 % topical cream 1 applic TOP TID PRN gram 02/09/21 03/25/21 triamcinolone acetonide 0.1 % 1 applic TOP QID PRN gram 02/09/21 03/25/21 topical cream epinephrine [EpiPen 2-Bon] 0.3 mg IM SEE INSTRUCTIONS PRN 03/25/21 03/25/21 topiramate [Topamax] 200 mg PO DAILY 03/26/21 03/26/21 Previous Rx's Medication Instructions Recorded Disabled Parking Permit ea #1 05/18/17 insulin lispro 100 unit/mL See Rx Instructions SUBCUT QACHS 09/18/18 subcutaneous pen PRN #3 each omeprazole 40 mg capsule,delayed 40 mg PO BID #180 cap 08/13/20 release amlodipine 5 mg tablet 5 mg PO DAILY #90 tab 09/01/20 bupropion HCl 150 mg tablet,12 hr 150 mg PO BID #60 tab 09/07/20 sustained-release pen needle, diabetic 31 gauge x See Rx Instructions .ROUTE 09/15/20 3/16 .COMPLEX #250 ea duloxetine 40 mg capsule,delayed 40 mg PO QDAY #30 cap 10/05/20 release blood sugar diagnostic #360 each 10/19/20 galcanezumab-gnlm 120 mg/mL 120 mg SUBCUT QMONTH #1 ml 10/19/20 subcutaneous syringe losartan 100 mg tablet 100 mg PO DAILY #60 tab 10/26/20 atorvastatin 40 mg tablet 40 mg PO QDAY #90 tab 11/02/20 nortriptyline 50 mg capsule 50 mg PO HS #90 cap 12/04/20 insulin glargine 100 unit/mL (3 50 unit SUBCUT QDAY #45 ml 12/24/20 mL) subcutaneous pen clonidine HCl 0.1 mg tablet 0.1 mg PO BID #180 tab 01/26/21 albuterol sulfate 2.5 mg INHALATION Q4-6H PRN #180 ml 02/09/21 calcium carbonate 320 mg calcium 2,250 mg PO DAILY #250 tab 02/09/21 (750 mg) chewable tablet cholecalciferol (vitamin D3) 50 50 mcg PO DAILY #90 cap 02/09/21 mcg (2,000 unit) capsule fluticasone propionate 230 2 puff INHALATION BID #12 g 02/09/21 mcg-salmeterol 21 mcg/actuation HFA inhaler fluticasone propionate 50 2 spray INTRANASAL BEDTIME #16 g 02/09/21 mcg/actuation nasal spray,suspension mecobalamin (vitamin B12) 1,000 1,000 mcg PO DAILY #90 tab 02/09/21 mcg chewable tablet ondansetron 4 mg PO Q8H PRN #10 tab 03/20/21 oxycodone 10 mg PO Q4-6H PRN #50 tab 03/28/21 dabigatran etexilate [Pradaxa] 150 mg PO BID #60 cap 04/05/21 ondansetron HCl [Zofran] 4 mg PO Q6H PRN #10 tab 04/05/21 Allergies Allergy/AdvReac Type Severity Reaction Status Date / Time aspirin [ASPIRIN] Allergy Severe Breathing Verified 04/05/21 12:48 problem erythromycin base Allergy Severe Throat Verified 04/05/21 12:48 [ERYTHROMYCIN BASE] closes sumatriptan [SUMATRIPTAN] Allergy Severe Anaphylaxis Verified 04/05/21 12:48 meperidine [MEPERIDINE] Allergy Mild Rash Verified 04/05/21 12:48 acetaminophen [From VICODIN] Allergy Unknown Verified 04/05/21 12:48 hydrocodone [From VICODIN] Allergy Unknown Verified 04/05/21 12:48 adhesive tape Allergy Rash Verified 04/05/21 12:48 NSAIDS (Non-Steroidal Allergy Verified 04/05/21 12:48 Anti-Inflamma sweet potato Allergy Anaphylaxis Verified 04/05/21 12:48 ibuprofen [IBUPROFEN] AdvReac Mild Headache, Verified 04/05/21 12:48 vomiting Review of Systems Review of Systems ROS Unobtainable: All systems reviewed & are unremarkable except as noted in HPI and below Patient History Medical History (Updated 04/05/21 @ 16:46 by Cindy Charles DO) Acquired hypothyroidism (01/14/16) Anxiety (05/12/17) Asthma Body mass index (BMI) of 40.1 to 44.9 in adult (01/06/17) GERD (gastroesophageal reflux disease) (05/27/11) H/O migraine Mixed hyperlipidemia (05/27/11) Moderate persistent asthma without complication (05/27/11) Morbid obesity due to excess calories (01/06/17) Recurrent major depressive disorder, in partial remission (05/12/17) Type 2 diabetes mellitus with diabetic polyneuropathy (08/21/15) Type 2 diabetes mellitus with hyperglycemia, with long-term current use of insulin (04/15/16) Surgical History Fracture S/P total abdominal hysterectomy and bilateral salpingo-oophorectomy Status post cholecystectomy Surgical procedure planned Social History marital status: number of children: 3 household members: significant other lives independently: Yes caregiver/support person: No housing: apartment pets and animals: Yes education level: college occupational status: disabled current occupational exposures/hazards: No Previous occupational history: Restuarant liliam/yazidism: Denominational leisure activities: other Smoking Status: Former smoker Tobacco: How many years used: 10 Smokeless tobacco user: other quit status: quit date established alcohol intake: never substance use type: other Smoking Status: Former smoker alcohol intake frequency: other Substance Use Type: marijuana Exam Narrative Exam Narrative: GENERAL: Alert and oriented x three, female in moderate distress with a BMI of 46 HEENT: Head normocephalic, atraumatic, EOMI, pupils reactive, face symmetric, moist mucous membranes NECK: Supple, full range of motion CARDIOVASCULAR: Regular rate and rhythm without murmurs, rubs or gallops. RESPIRATORY: Breath sounds equal bilaterally, no wheezes rales or rhonchi. ABDOMEN: Soft, nontender. Normoactive bowel sounds all 4 quadrants. No guarding or rebound, rigidity, no mass : No CVA tenderness EXTREMITIES: Normal range of motion, no clubbing or edema of right upper extremity. Left upper extremity patient has incision that appears clean dry and intact with patrick present underneath her bandage which was removed and evaluated and replaced. Patient does have swelling in her left upper extremity but does not have any sign doses, erythema or pallor. She has sensation to light touch with full range of motion of her elbow, wrist and fingers the patient has 2+ radial pulse. Neurovascularly intact NEUROLOGICAL: Cranial nerves II through XII grossly intact. Moving all extremities SKIN: Warm, dry, no petechiae, no rashes or lesions slightly erythematous patchy non raised rash on the anterior chest. There is no rash or skin changes except for the very upper edge of her dressing. Initial Vital Signs Initial Vital Signs: Vital Signs Temperature 97.6 F 04/05/21 12:40 Pulse Rate 119 H 04/05/21 12:40 Respiratory Rate 28 H 04/05/21 12:40 Blood Pressure 191/85 H 04/05/21 12:40 Pulse Oximetry 98 04/05/21 12:40 Course Orders Ordered: ED Orders 04/05/21 12:49 EKG-12 Lead Stat 04/05/21 13:33 US periph venous up extrem rt Stat 04/05/21 14:55 UA Complete [Urinalysis and Microscopic] Stat 04/05/21 15:24 Complete Blood Count AUTO DIFF Stat Comprehensive Metabolic Panel Stat Lipase Stat Partial Thromboplastin Time Stat Prothrombin Time INR Stat Troponin & CK Cardiac Panel Stat 04/05/21 15:53 CT angio chest PE protocol Stat Discontinued Medications Dabigatran (Dabigatran 75 Mg Capsule) 150 mg PO NOW ONE Stop: 04/05/21 16:31 Last Admin: 04/05/21 16:49 Dose: 150 mg Documented by: VADIM Sodium Chloride (Normal Saline 0.9%) 1,000 mls @ 1,000 mls/hr IV BOLUS ONE Stop: 04/05/21 13:48 Last Admin: 04/05/21 15:08 Dose: 1,000 mls/hr Documented by: VADIM Morphine Sulfate (Morphine 4 Mg/Ml Inj) 4 mg IV NOW ONE Stop: 04/05/21 13:33 Last Admin: 04/05/21 15:07 Dose: 4 mg Documented by: VADIM Ondansetron HCl (Ondansetron 4 Mg/2 Ml Inj) 4 mg IV NOW ONE Stop: 04/05/21 12:59 Last Admin: 04/05/21 15:07 Dose: 4 mg Documented by: VADIM Ondansetron HCl (Ondansetron 4 Mg/2 Ml Inj) 4 mg IV NOW ONE Stop: 04/05/21 13:33 Vital Signs Vital signs: Vital Signs - 8 hr 04/05/21 12:40 04/05/21 16:18 04/05/21 16:30 Temperature 97.6 F Pulse Rate 119 H 114 H 106 H Respiratory Rate 28 H Blood Pressure 191/85 H Pulse Oximetry 98 100 99 04/05/21 16:59 04/05/21 17:00 04/05/21 17:01 Temperature Pulse Rate 112 H 104 H 99 H Respiratory Rate Blood Pressure 155/119 H 155/75 H Pulse Oximetry 100 100 100 MDM - Nausea/Vomiting/Diarrhea Lab Data Attestation: I reviewed the patient's lab results. Result diagrams: 04/05/21 15:24 04/05/21 15:24 Labs: Lab Results 04/05/21 04/05/21 04/05/21 Range/Units 14:55 15:24 15:24 WBC 6.6 (4.5-11.0) X10^3/uL RBC 3.29 L (4.0-5.2) X10^6/uL Hgb 9.1 L (12.0-16.0) g/dL Hct 27.6 L (36-46) % MCV 84.1 (80-100) fL MCH 27.8 (26-34) PG MCHC 33.1 (30-36) % RDW 16.4 H (11.6-14.8) % Plt Count 491 H (150-400) X10^3/uL Neut % (Auto) 66.0 (50-75) % Lymph % (Auto) 25.9 (25-40) % Wilson % (Auto) 6.7 (3-14) % Eos % (Auto) 0.8 L (2-4) % Baso % (Auto) 0.6 (0-2) % Neut # (Auto) 4300 (6243-2990) /uL Lymph # (Auto) 1700 (7251-9871) /uL Wilson # (Auto) 400 (0-900) /uL Eos # (Auto) 100 (0-450) /uL Baso # (Auto) 0 (0-100) /uL PT (10.1-12.7) SECONDS INR (0.9-1.3) APTT (26.4-36.2) SECONDS Sodium 135 L (137-145) mmol/L Potassium 3.8 (3.4-5.1) mmol/L Chloride 102 (98-107) mmol/L Carbon Dioxide 25 (22-32) mmol/L BUN 11 (7-17) mg/dL Creatinine 0.77 (0.52-1.04) mg/dL Estimated GFR > 60.0 (>60) mL/min BUN/Creatinine Ratio 14.3 (6-22) Glucose 183 H (70-100) mg/dL Calcium 9.2 (8.4-10.2) mg/dL Total Bilirubin 0.9 (0.2-1.3) mg/dL AST 24 (14-36) IU/L ALT 19 (<35) IU/L Alkaline Phosphatase 127 H (38-126) U/L Total Creatine Kinase (30-135) U/L CK-MB (CK-2) CK-MB (CK-2) Rel Index Troponin I (0.01-0.034) ng/mL Total Protein 6.5 (6.3-8.2) g/dL Albumin 3.1 L (3.5-5.0) g/dL Globulin 3.4 (1.7-4.1) g/dL Albumin/Globulin Ratio 0.9 L (1.0-2.8) Lipase 59 (23-300) U/L Urine Color Yellow Urine Appearance Clear Urine pH >= 9.0 H (4.5-8.0) Ur Specific [place] 1.015 (1.000-1.035) Urine Protein 1+ H (Negative) Urine Glucose (UA) Negative (Negative) g/dL Urine Ketones Negative (NEGATIVE) Urine Occult Blood Negative (Negative) Urine Nitrate Negative (Negative) Urine Bilirubin Negative (NEGATIVE) Urine Urobilinogen 1.0 (0.2) E.U./dL Ur Leukocyte Esterase Negative (NEGATIVE) Urine RBC None seen (0-5/HPF) Urine WBC 5-10/hpf H (0-5/HPF) Urine Bacteria None seen (None) Ur Culture Indicated? Cult not indicated 04/05/21 04/05/21 Range/Units 15:24 15:24 WBC (4.5-11.0) X10^3/uL RBC (4.0-5.2) X10^6/uL Hgb (12.0-16.0) g/dL Hct (36-46) % MCV (80-100) fL MCH (26-34) PG MCHC (30-36) % RDW (11.6-14.8) % Plt Count (150-400) X10^3/uL Neut % (Auto) (50-75) % Lymph % (Auto) (25-40) % Wilson % (Auto) (3-14) % Eos % (Auto) (2-4) % Baso % (Auto) (0-2) % Neut # (Auto) (5368-9418) /uL Lymph # (Auto) (8525-9960) /uL Wilson # (Auto) (0-900) /uL Eos # (Auto) (0-450) /uL Baso # (Auto) (0-100) /uL PT 14.9 H (10.1-12.7) SECONDS INR 1.3 (0.9-1.3) APTT 33 (26.4-36.2) SECONDS Sodium (137-145) mmol/L Potassium (3.4-5.1) mmol/L Chloride (98-107) mmol/L Carbon Dioxide (22-32) mmol/L BUN (7-17) mg/dL Creatinine (0.52-1.04) mg/dL Estimated GFR (>60) mL/min BUN/Creatinine Ratio (6-22) Glucose (70-100) mg/dL Calcium (8.4-10.2) mg/dL Total Bilirubin (0.2-1.3) mg/dL AST (14-36) IU/L ALT (<35) IU/L Alkaline Phosphatase (38-126) U/L Total Creatine Kinase 62 (30-135) U/L CK-MB (CK-2) TNP CK-MB (CK-2) Rel Index TNP Troponin I < 0.012 (0.01-0.034) ng/mL Total Protein (6.3-8.2) g/dL Albumin (3.5-5.0) g/dL Globulin (1.7-4.1) g/dL Albumin/Globulin Ratio (1.0-2.8) Lipase (23-300) U/L Urine Color Urine Appearance Urine pH (4.5-8.0) Ur Specific [place] (1.000-1.035) Urine Protein (Negative) Urine Glucose (UA) (Negative) g/dL Urine Ketones (NEGATIVE) Urine Occult Blood (Negative) Urine Nitrate (Negative) Urine Bilirubin (NEGATIVE) Urine Urobilinogen (0.2) E.U./dL Ur Leukocyte Esterase (NEGATIVE) Urine RBC (0-5/HPF) Urine WBC (0-5/HPF) Urine Bacteria (None) Ur Culture Indicated? Point of Care Testing Glucose POC 187 Imaging Data US - DVT: Radiologist's Impression: [address] [id number] ReportSigned Patient: Jessie Knapp LMR#: [id number]: 2Acct:[id number]/Sex: 60 / FDate of Service: 04/05/21Loc: EDAccession Number: [id number] Procedure: US periph venous up extrem rt Ordering Provider: Cindy Charles D.O. PROCEDURE: US PERIPH VENOUS UP EXTREM RT INDICATIONS: 11 DAYS POST SHOULDER SURGERY; PAIN, EDEMA TECHNIQUE: Real-time imaging, as well as color and pulse Doppler interrogation, was performed of the right upper extremity deep veins from the inferior neck to the antecubital fossa. COMPARISON: None. FINDINGS: There is thrombus seen in the axillary vein and brachial vein. There is thrombus in the superficial system within the basilic vein which extends to the antecubital fossa. The subclavian vein is suboptimally visualized. The internal jugular vein is patent. IMPRESSION: 1. Positive for DVT in the right upper extremity. Thrombus within the axillary and brachial vein seen. 2. Positive for superficial venous thrombus in the basilic vein. Comment: Findings were discussed with Dedra in the emergency department at the time of dictation. Dictated by: Chicho Fung M.D. on 04/05/2021 at 14:41 Approved by: Chicho Fung M.D. on 04/05/2021 at 14:45 CT scan - chest: Radiologist's Impression: [address] [id number] Scan ReportSigned Patient: Jessie Knapp LMR#: [id number]: 2Acct:[id number]/Sex: 60 / FDate of Service: 04/05/21Loc: EDAccession Number: [id number] Procedure: CT angio chest PE protocol Ordering Provider: Cindy Charles D.O. PROCEDURE: CT ANGIO CHEST PE PROTOCOL INDICATIONS: dvt upper ext s/p sx TECHNIQUE: After the administration of intravenous contrast, 2 mm thick sections acquired from the pulmonary apices to the posterior costophrenic angles. 3-dimensional maximum intensity projection (MIP) coronal and sagittal reformats were then acquired through the thorax. For radiation dose reduction, the following was used: automated exposure co ntrol, adjustment of mA and/or kV according to patient size. COMPARISON: None. FINDINGS: Image quality: Portions of the chest are suboptimally evaluated secondary to metallic streak artifact from shoulder arthroplasty. Opacification of the pulmonary artery system is considered suboptimal for potential emboli distal to the main branches. Pulmonary arteries: Pulmonary arteries are normal in size, and demonstrate no intraluminal filling defects to suggest central pulmonary embolism. Lungs and pleura: Lungs are clear. No pleural effusions or pneumothorax. Central and peripheral airways are patent. Mediastinum: Heart size is normal, without pericardial effusion. No mediasti nal or hilar adenopathy. Thoracic aorta is normal in caliber and enhancement. Esophagus is normal in caliber, without hiatal hernia. Bones and chest wall: No suspicious bony lesions. Ribs and thoracic spine appear intact throughout. Thyroid gland demonstrates prominent left lobe calcifications. No priors are available for comparison. No axillary or supraclavicular adenopathy. Abdomen: Visualized upper abdominal solid organs appear normal in the early arterial phase of enhancement. IMPRESSION: 1. No central pulmonary embolism. Injection opacification is suboptimal for detection of emboli distal to the main pulmonary artery branches. 2. Calcification is present within the left thyroid lobe without priors available for comparison. Thyroid ultrasound is recommended for further evaluation. Dictated by: Glenys Samano M.D. on 04/05/2021 at 16:23 Approved by: Glenys aSmano M.D. on 04/05/2021 at 16:25 Extremity x-ray #1: Radiologist's Impression: Jessie Knapp L 60 F [address] [id number] ReportSigned Patient: Jessie Knapp LMR#: [id number]: 1960cct:[id number]/Sex: 60 / FDate of Service: 03/26/21Loc: [id number] Number: [id number] Procedure: XR shoulder RT min 2V Ordering Provider: Marcus Barillas MD PROCEDURE: XR SHOULDER RT MIN 2V INDICATIONS: Status post reverse total shoulder TECHNIQUE: A total of 2 views of the shoulder were acquired. COMPARISON: [facility], CR, XR SHOULDER RT MIN 2V, 03/20/2021, 6:59. FINDINGS: Bones: Normal alignment after right total shoulder arthroplasty. No suspicious bony lesions. Visualized ribs appear intact. Soft tissues: No suspicious soft tissue calcifications. IMPRESSION: Normal alignment established, by shoulder arthroplasty on the right. Dictated by: Jimbo Palacio M.D. on 03/26/2021 at 15:29 Approved by: Jimbo Palacio M.D. on 03/26/2021 at 15:30 ECG Data Attestation: I personally reviewed and interpreted this ECG as follows: Prior ECG tracings: available for review Interpretation: Sinus rhythm with sinus arrhythmia. Rate of 94 TN 122, QRS is 74 and QTC of 422. No acute ST elevation or depression noted. Patient has prior EKG from 03/20/[address] segments[address] [facility] Narrative Medical decision making narrative: This a 60-year-old female comes emergency department with increasing pain in right upper extremity, nausea and vomiting. Patient states she fell had a fracture and had surgical repair of her shoulder earlier this month in March. She has had some nausea and vomiting and has been able to keep down her oral pain medications. She appreciates some significant swelling of her upper extremity which has worsened since her discharge. She denies any fevers or chills. She denies any chest pain or pressure. She felt short of breath initially after vomiting but denies any persistent shortness of breath. She states she has been stooling regularly without issue. She denies any other new swelling in her other extremities. Patient was noted to have a positive DVT on her ultrasound. CT was obtained as she is fairly high risk and this was negative. Has anemia at 9.1 without any worsening drop in her hemoglobin since the . Her troponin is negative with no other major lab abn ormalities. Patient was started on Pradaxa daily after consultation with her primary care physician who agrees appropriate medication. Patient was given a prescription for Pradaxa to fill within the next 12 hours and begin. I did make it clear to her and her spouse that if there is difficulty filling the medication to either return so we can have an additional dose if there is any issues with insurance or filling her prescription. Discharge Plan Departure Patient Disposition: Home Clinical Impression: Arm DVT (deep venous thromboembolism), acute Instructions: DI for Deep Vein Thrombosis Activity Restrictions/Additional Instructions: Your imaging today does show a DVT in your upper extremities but no signs of DVT or clot in your chest. Labs show hemoglobin that appears stable from earlier this month after your surgery. Take anticoagulant med medication twice daily Prescription sent to [facility] in [place]. You may continue your other home medications as prescribed. Return for new chest pain, shortness of breath, passing out, increasing swelling or pain in her upper extremity, new numbness tingling or weakness, black or bloody stools, coughing up blood or other new or concerning symptoms Prescriptions: New Pradaxa 150 mg capsule 150 mg PO BID Qty: 60 RF: 0 ondansetron HCl [Zofran] 4 mg tablet 4 mg PO Q6H PRN (Reason: nausea and vomiting) Qty: 10 RF: 0 No Action Disabled Parking Permit Qty: 1 RF: 0 insulin lispro [Humalog KwikPen Insulin] 100 unit/mL insulin pen See Rx Instructions SUBCUT QACHS PRN (Reason: DM) Qty: 3 RF: 6 bupropion HCl 150 mg tablet sustained-release 12 hr 150 mg PO BID Qty: 60 RF: 5 pen needle, diabetic [BD Ultra-Fine Mini Pen Needle] 31 gauge x 3/16 needle See Rx Instructions .ROUTE .COMPLEX Qty: 250 RF: 6 duloxetine 40 mg capsule,delayed release(DR/EC) 40 mg PO QDAY Qty: 30 RF: 11 Emgality Syringe 120 mg/mL syringe 120 mg SUBCUT QMONTH Qty: 1 RF: 12 (DME) Blood Glucose Test Strip See Dose Instructions .ROUTE .MEDSUPPLY Qty: 360 RF: 3 losartan 100 mg tablet 100 mg PO DAILY Qty: 60 RF: 6 atorvastatin 40 mg tablet 40 mg PO QDAY Qty: 90 RF: 3 nortriptyline 50 mg capsule 50 mg PO HS Qty: 90 RF: 3 Lantus Solostar U-100 Insulin 100 unit/mL (3 mL) insulin pen 50 unit subcut QDAY Qty: 45 RF: 11 clonidine HCl 0.1 mg tablet 0.1 mg PO BID Qty: 180 RF: 3 desonide 0.05 % cream 1 applic TOP TID PRN (Reason: Rash, irritation) RF: 0 triamcinolone acetonide 0.1 % cream 1 applic TOP QID PRN (Reason: Rash, skin irritation) RF: 0 Advair HFA 230-21 mcg/actuation HFA aerosol inhaler 2 puff inhalation BID Qty: 12 RF: 3 albuterol sulfate 2.5 mg /3 mL (0.083 %) solution for nebulization 2.5 mg inhalation Q4-6H PRN (Reason: shortness of breath or wheezing) Qty: 180 RF: 4 mecobalamin (vitamin B12) 1,000 mcg tablet,chewable 1,000 mcg PO DAILY Qty: 90 RF: 3 fluticasone propionate 50 mcg/actuation spray,suspension 2 spray intranasal BEDTIME Qty: 16 RF: 3 calcium carbonate [Antacid (calcium carbonate)] 320 mg calcium (750 mg) tablet,chewable 2,250 mg PO DAILY Qty: 250 RF: 3 cholecalciferol (vitamin D3) 50 mcg (2,000 unit) capsule 50 mcg PO DAILY Qty: 90 RF: 3 Glucagon Emergency Kit (human) 1 mg recon soln 1 mg SUBCUT Q20M PRN (Reason: Hypoglycemia) RF: 0 amlodipine 5 mg tablet 5 mg PO DAILY Qty: 90 RF: 3 Victoza 2-Bon 0.6 mg/0.1 mL (18 mg/3 mL) pen injector 1.2 mg SUBCUT DAILY RF: 0 omeprazole 40 mg capsule,delayed release(DR/EC) 40 mg PO BID Qty: 180 RF: 3 ondansetron 4 mg tablet,disintegrating 4 mg PO Q8H PRN (Reason: nausea and vomiting) Qty: 10 RF: 0 epinephrine [EpiPen 2-Bon] 0.3 MG/0.3 ML auto-injector 0.3 mg IM SEE INSTRUCTIONS PRN (Reason: Allergic reactions) RF: 0 topiramate [Topamax] 50 mg Tablet 200 mg PO DAILY RF: 0 oxycodone 10 mg Tablet 10 mg PO Q4-6H PRN (Reason: Pain) Qty: 50 RF: 0 Referrals: Sheng Gomes MD [Primary Care Provider] -
[2021-04-05] MEDS: ONDANSETRON 4 MG/2 ML INJ IV (15:07)
[2021-04-05] MEDS: MORPHINE 4 MG/ML INJ IV (15:07)
[2021-04-05] MEDS: SODIUM CHLORIDE 0.9% 1,000 ML 1000 ML IV (15:08)
[2021-04-05 15:11] LABS: Bacteria Urine None Seen; RBC Urine None Seen (0-5/HPF)
[2021-04-05 15:12] LABS: Appearance Urine UA CLEAR; Bilirubin Urine UA NEGATIVE (NEGATIVE); Color Urine UA YELLOW; Glucose Urine UA NEGATIVE (Negative); Ketones Urine UA NEGATIVE (NEGATIVE); Leukocyte Esterase Urine UA NEGATIVE (NEGATIVE); Nitrite Urine UA NEGATIVE (Negative); Occult Blood Urine UA NEGATIVE (Negative); Protein Urine UA 1+ (Negative); Specific Gravity Urine UA 1.015 (1.000-1.035)
[2021-04-05 15:13] LABS: pH Urine UA >= 9.0 (4.5-8.0)
[2021-04-05 15:21] LABS: Culture Indicated Urine Cult Not Indicated; WBC Urine 5-10/HPF (0-5/HPF)
[2021-04-05 15:34] LABS: Add Manual Diff / Slide Review NO; Basophils Absolute Auto 0 /uL (0-100); Basophils Percent Auto 0.6 % (0-2); Eosinophils Absolute Auto 100 /uL (0-450); Eosinophils Percent Auto 0.8 % (2-4); Hematocrit 27.6 % (36-46); Hemoglobin 9.1 g/dL (12.0-16.0); Lymphocytes Absolute Auto 1700 /uL (1100-4500); Lymphocytes Percent Auto 25.9 % (25-40); Mean Corpuscular HGB Conc 33.1 % (30-36); Mean Corpuscular Hemoglobin 27.8 PG (26-34); Mean Corpuscular Volume 84.1 fL (80-100); Monocytes Absolute Auto 400 /uL (0-900); Monocytes Percent Auto 6.7 % (3-14); Neutrophils Absolute Auto 4300 /uL (1500-7000); Platelet Count 491 X10^3/uL (150-400); Red Blood Cell Count 3.29 X10^6/uL (4.0-5.2); Red Cell Distribution Width 16.4 % (11.6-14.8); White Blood Cell Count 6.6 X10^3/uL (4.5-11.0)
[2021-04-05 15:41] LABS: Creatine Kinase 62 U/L (30-135)
[2021-04-05 15:43] LABS: Alanine Aminotransferase 19 IU/L (<35); Albumin 3.1 g/dL (3.5-5.0); Albumin Globulin Ratio 0.9 (1.0-2.8); Alkaline Phosphatase 127 U/L (38-126); Aspartate Aminotransferase 24 IU/L (14-36); BUN Creatinine Ratio 14.3 (6-22); Bilirubin Total 0.9 mg/dL (0.2-1.3); Blood Urea Nitrogen 11 mg/dL (7-17); Calcium 9.2 mg/dL (8.4-10.2); Carbon Dioxide 25 mmol/L (22-32); Chloride 102 mmol/L (98-107); Estimated Glomerular Filt Rate > 60.0 mL/min (>60); Globulin 3.4 g/dL (1.7-4.1); Glucose 183 mg/dL (70-100); HEMOLYSIS < 15 (0-50); Lipase 59 U/L (23-300); Potassium 3.8 mmol/L (3.4-5.1); Sodium 135 mmol/L (137-145); Total Protein 6.5 g/dL (6.3-8.2)
--- NOTE | 2021-04-05 15:53 | DI.CT.S_ITS ---
PROCEDURE: CT ANGIO CHEST PE PROTOCOL INDICATIONS: dvt upper ext s/p sx TECHNIQUE: After the administration of intravenous contrast, 2 mm thick sections acquired from the pulmonary apices to the posterior costophrenic angles. 3-dimensional maximum intensity projection (MIP) coronal and sagittal reformats were then acquired through the thorax. For radiation dose reduction, the following was used: automated exposure control, adjustment of mA and/or kV according to patient size. COMPARISON: None. FINDINGS: Image quality: Portions of the chest are suboptimally evaluated secondary to metallic streak artifact from shoulder arthroplasty. Opacification of the pulmonary artery system is considered suboptimal for potential emboli distal to the main branches. Pulmonary arteries: Pulmonary arteries are normal in size, and demonstrate no intraluminal filling defects to suggest central pulmonary embolism. Lungs and pleura: Lungs are clear. No pleural effusions or pneumothorax. Central and peripheral airways are patent. Mediastinum: Heart size is normal, without pericardial effusion. No mediastinal or hilar adenopathy. Thoracic aorta is normal in caliber and enhancement. Esophagus is normal in caliber, without hiatal hernia. Bones and chest wall: No suspicious bony lesions. Ribs and thoracic spine appear intact throughout. Thyroid gland demonstrates prominent left lobe calcifications. No priors are available for comparison. No axillary or supraclavicular adenopathy. Abdomen: Visualized upper abdominal solid organs appear normal in the early arterial phase of enhancement. IMPRESSION: 1. No central pulmonary embolism. Injection opacification is suboptimal for detection of emboli distal to the main pulmonary artery branches. 2. Calcification is present within the left thyroid lobe without priors available for comparison. Thyroid ultrasound is recommended for further evaluation. Dictated by: Glenys Samano M.D. on 04/05/2021 at 16:23 Approved by: Glenys Samano M.D. on 04/05/2021 at 16:25
[2021-04-05 15:54] LABS: Troponin I < 0.012 ng/mL (0.01-0.034)
[2021-04-05 16:06] LABS: INR 1.3 (0.9-1.3); Prothrombin Time 14.9 SECONDS (10.1-12.7)
[2021-04-05 16:08] LABS: PTT Partial Thromboplastin Tim 33 SECONDS (26.4-36.2)
[2021-04-05 16:18] VITALS: PULSE 114; O2SAT 100
[2021-04-05 16:30] VITALS: PULSE 106; O2SAT 99
[2021-04-05] MEDS: DABIGATRAN 75 MG CAPSULE 150 MG PO (16:49)
[2021-04-05 16:59] VITALS: BP 155/119; PULSE 112; O2SAT 100
[2021-04-05 17:00] VITALS: PULSE 104; O2SAT 100
[2021-04-05 17:01] VITALS: BP 155/75; PULSE 99; O2SAT 100
--- NOTE | 2021-04-08 09:52 | PC.NURSE ---
Late ENtry - per RN IV fluids DC'd at 1630 prior to discharge
== END 2021-04-05 17:24 | disposition home or self-care (01) ==
PROVIDERS: Emergency Provider Emergency Medicine; PCP Internal Medicine
DX: I82.621 Acute embolism and thrombosis of deep veins of right upper extremity (principal); R11.2 Nausea with vomiting, unspecified
CPT/HCPCS: 36415; 71275; 80053; 81001; 82550; 82962; 83690; 84484; 85025; 85610; 85730; 93005; 93010; 93971; 96361; 96374; 96375; 99284; J2270; J2405; Q9967

== ENCOUNTER 2021-04-12 14:18 | Emergency (ER) | payer OTHER, MEDICAID, SELFPAY ==
[2021-03-26 17:21] VITALS: BMI 46.0
[2021-04-12 14:20] VITALS: BP 131/64; PULSE 108; RESP 24; TEMP 36.6; O2SAT 100
--- NOTE | 2021-04-12 14:41 | PC.NURSE ---
n/v/d reports she hasn't been able to keep track of her DM at home due to running out of supplies. Patient states she is very anxious. Appears to be anxious. 11th had right shoulder surgery, incision appears to be healing well however surrounding skin appears red and irritated from dressing. patient new developed allergy to tapes
[2021-04-12 14:51] LABS: Hematocrit 29.1 % (36-46); Hemoglobin 9.3 g/dL (12.0-16.0); Mean Corpuscular Hemoglobin 26.7 PG (26-34); Mean Corpuscular Volume 83.4 fL (80-100); Platelet Count 587 X10^3/uL (150-400); Red Cell Distribution Width 16.7 % (11.6-14.8); White Blood Cell Count 6.1 X10^3/uL (4.5-11.0)
[2021-04-12 14:55] LABS: Add Manual Diff / Slide Review YES
[2021-04-12 15:05] LABS: Alanine Aminotransferase 20 IU/L (<35); Albumin 3.6 g/dL (3.5-5.0); Alkaline Phosphatase 122 U/L (38-126); Aspartate Aminotransferase 27 IU/L (14-36); Bilirubin Total 0.8 mg/dL (0.2-1.3); Blood Urea Nitrogen 14 mg/dL (7-17); Calcium 9.7 mg/dL (8.4-10.2); Carbon Dioxide 22 mmol/L (22-32); Chloride 104 mmol/L (98-107); Estimated Glomerular Filt Rate 47.3 mL/min (>60); Globulin 3.7 g/dL (1.7-4.1); Glucose 256 mg/dL (70-100); HEMOLYSIS 24 (0-50); Lipase 30 U/L (23-300); Potassium 3.9 mmol/L (3.4-5.1); Sodium 137 mmol/L (137-145); Total Protein 7.3 g/dL (6.3-8.2)
[2021-04-12 15:55] LABS: Anisocytosis 1+; Neutrophils Absolute Manual 3599 /uL (3000-5900); Total Cells Counted 100
[2021-04-12 15:56] LABS: Platelet Estimate Increased on smear
--- NOTE | 2021-04-12 16:18 | ED.NAVMDI ---
HPI - Nausea/Vomiting/Diarrhea General Chief complaint: Nausea/Vomiting/Diarrhea Stated complaint: Shakes Time Seen by Provider: 04/12/21 14:49 Source: patient Mode of arrival: Ambulatory History of Present Illness HPI Narrative: Patient is a 60-year-old female with history of insulin-dependent diabetes presenting today with nausea vomiting and diarrhea and some shaking. She has previously been seen for a right humeral fracture which has now been repaired. She unfortunately also no has a complication of the right upper extremity DVT as well and is on anticoagulation, Pradaxa. She states that she has not been hungry and only drinking and still using her insulin. She felt like her glucose might be high. She had shakes. She is feeling better with zofran, and IV fluids. Related Data Home Medications Medication Instructions Recorded Confirmed glucagon (human recombinant) 1 mg 1 mg SUBCUT Q20M PRN 11/25/19 03/25/21 solution for injection (Glucagon Emergency Kit) liraglutide 0.6 mg/0.1 mL (18 mg/3 1.2 mg SUBCUT DAILY 08/13/20 03/26/21 mL) subcutaneous pen injector (Victoza 2-Bon) desonide 0.05 % topical cream 1 applic TOP TID PRN gram 02/09/21 03/25/21 triamcinolone acetonide 0.1 % 1 applic TOP QID PRN gram 02/09/21 03/25/21 topical cream epinephrine 0.3 mg/0.3 mL 0.3 mg IM SEE INSTRUCTIONS PRN 03/25/21 03/25/21 injection, auto-injector (EpiPen 2-Bon) topiramate 50 mg tablet (Topamax) 200 mg PO DAILY 03/26/21 03/26/21 Previous Rx's Medication Instructions Recorded Disabled Parking Permit ea #1 05/18/17 insulin lispro 100 unit/mL See Rx Instructions SUBCUT QACHS 09/18/18 subcutaneous pen (Humalog KwikPen PRN #3 each (U-100) Insulin) omeprazole 40 mg capsule,delayed 40 mg PO BID #180 cap 08/13/20 release amlodipine 5 mg tablet 5 mg PO DAILY #90 tab 09/01/20 bupropion HCl 150 mg tablet,12 hr 150 mg PO BID #60 tab 09/07/20 sustained-release pen needle, diabetic 31 gauge x See Rx Instructions .ROUTE 09/15/20 3/16 (BD Ultra-Fine Mini Pen .COMPLEX #250 ea Needle) duloxetine 40 mg capsule,delayed 40 mg PO QDAY #30 cap 10/05/20 release blood sugar diagnostic (Blood #360 each 10/19/20 Glucose Test) galcanezumab-gnlm 120 mg/mL 120 mg SUBCUT QMONTH #1 ml 10/19/20 subcutaneous syringe (Emgality) losartan 100 mg tablet 100 mg PO DAILY #60 tab 10/26/20 atorvastatin 40 mg tablet 40 mg PO QDAY #90 tab 11/02/20 nortriptyline 50 mg capsule 50 mg PO HS #90 cap 12/04/20 insulin glargine 100 unit/mL (3 50 unit SUBCUT QDAY #45 ml 12/24/20 mL) subcutaneous pen (Lantus Solostar U-100 Insulin) clonidine HCl 0.1 mg tablet 0.1 mg PO BID #180 tab 01/26/21 albuterol sulfate 2.5 mg INHALATION Q4-6H PRN #180 ml 02/09/21 calcium carbonate 320 mg calcium 2,250 mg PO DAILY #250 tab 02/09/21 (750 mg) chewable tablet (Antacid (calcium carbonate)) cholecalciferol (vitamin D3) 50 50 mcg PO DAILY #90 cap 02/09/21 mcg (2,000 unit) capsule fluticasone propionate 230 2 puff INHALATION BID #12 g 02/09/21 mcg-salmeterol 21 mcg/actuation HFA inhaler (Advair HFA) fluticasone propionate 50 2 spray INTRANASAL BEDTIME #16 g 02/09/21 mcg/actuation nasal spray,suspension mecobalamin (vitamin B12) 1,000 1,000 mcg PO DAILY #90 tab 02/09/21 mcg chewable tablet ondansetron 4 mg disintegrating 4 mg PO Q8H PRN #10 tab 03/20/21 tablet oxycodone 10 mg tablet 10 mg PO Q4-6H PRN #50 tab 03/28/21 dabigatran etexilate 150 mg 150 mg PO BID #60 cap 04/05/21 capsule (Pradaxa) ondansetron HCl 4 mg tablet 4 mg PO Q6H PRN #10 tab 04/05/21 (Zofran) ondansetron 4 mg disintegrating 4 mg PO Q8H PRN #10 tab 04/12/21 tablet Allergies Allergy/AdvReac Type Severity Reaction Status Date / Time aspirin [ASPIRIN] Allergy Severe Breathing Verified 04/12/21 14:33 problem erythromycin base Allergy Severe Throat Verified 04/12/21 14:33 [ERYTHROMYCIN BASE] closes sumatriptan [SUMATRIPTAN] Allergy Severe Anaphylaxis Verified 04/12/21 14:33 meperidine [MEPERIDINE] Allergy Mild Rash Verified 04/12/21 14:33 hydrocodone [From VICODIN] Allergy Unknown Verified 04/12/21 14:33 adhesive tape Allergy Rash Verified 04/12/21 14:33 NSAIDS (Non-Steroidal Allergy Verified 04/12/21 14:33 Anti-Inflamma sweet potato Allergy Anaphylaxis Verified 04/12/21 14:33 ibuprofen [IBUPROFEN] AdvReac Mild Headache, Verified 04/12/21 14:33 vomiting Review of Systems Review of Systems Narrative: GENERAL: Denies chills, fatigue, malaise, fever, sweats, travel HEENT: Denies sinus pain, ear pain, sore throat, difficulty swallowing, neck pain RESPIRATORY: Denies dyspnea, cough, wheezing, hemoptysis, sputum. CARDIOVASCULAR: Denies chest pain, palpitations, orthopnea, edema GASTROINTESTINAL: See HPI : Denies dysuria, frequency, incontinence, hematuria, urinary retention, flank pain. MUSCULOSKELETAL: Recent right shoulder surgery SKIN: Rash from adhesive on the shoulder NEUROLOGIC: Denies weakness, dizziness, headache, numbness, change in speech, confusion PSYCHIATRIC: No concerning psychosocial issues. 12 point review of systems is negative except for those stated above and HPI Patient History Medical History Acquired hypothyroidism (01/14/16) Anxiety (05/12/17) Asthma Body mass index (BMI) of 40.1 to 44.9 in adult (01/06/17) GERD (gastroesophageal reflux disease) (05/27/11) H/O migraine Mixed hyperlipidemia (05/27/11) Moderate persistent asthma without complication (05/27/11) Morbid obesity due to excess calories (01/06/17) Recurrent major depressive disorder, in partial remission (05/12/17) Type 2 diabetes mellitus with diabetic polyneuropathy (08/21/15) Type 2 diabetes mellitus with hyperglycemia, with long-term current use of insulin (04/15/16) Surgical History Fracture S/P total abdominal hysterectomy and bilateral salpingo-oophorectomy Status post cholecystectomy Surgical procedure planned Social History marital status: number of children: 3 household members: significant other lives independently: Yes caregiver/support person: No housing: apartment pets and animals: Yes education level: college occupational status: disabled current occupational exposures/hazards: No Previous occupational history: [employer]ili[employer]/church: [employer] leisure activities: other Smoking Status: Former smoker Tobacco: How many years used: 10 Smokeless tobacco user: other quit status: quit date established alcohol intake: never substance use type: other Smoking Status: Former smoker alcohol intake frequency: other Substance Use Type: marijuana Exam Initial Vital Signs Initial Vital Signs: Vital Signs Temperature 97.9 F 04/12/21 14:20 Pulse Rate 108 H 04/12/21 14:20 Respiratory Rate 24 04/12/21 14:20 Blood Pressure 131/64 04/12/21 14:20 Pulse Oximetry 100 04/12/21 14:20 GENERAL: Alert well-appearing 60-year-old female and in no acute distress. HEENT: Head atraumatic,EOMI, pupils reactive, face symmetric, moist mucous membranes CARDIOVASCULAR: Regular rate and rhythm without murmurs, rubs or gallops. RESPIRATORY: Breath sounds equal bilaterally, no wheezes rales or rhonchi. ABDOMEN: Soft, nontender. Normoactive bowel sounds all 4 quadrants. No guarding or rebound. EXTREMITIES: Normal range of motion, no clubbing or edema. Neurovascularly intact. Right arm portable sawyer strength equal bilaterally radial median and ulnar nerve intact NEUROLOGICAL: Alert and oriented x4.Normal gait and speech. SKIN: Warm, dry, no laceration, no petechiae, no rashes or lesions. Incision site on right arm is clean and dry some erythema is noted off the incision site she says it is from the adhesive. No significant streaking. No fluctuation Course Orders Ordered: ED Orders 04/12/21 14:30 Complete Blood Count AUTO DIFF Stat Comprehensive Metabolic Panel Stat Lipase Stat 04/12/21 14:33 EKG-12 Lead Stat Vital Signs Vital signs: Vital Signs - 8 hr 04/12/21 14:20 Temperature 97.9 F Pulse Rate 108 H Respiratory Rate 24 Blood Pressure 131/64 Pulse Oximetry 100 MDM - Nausea/Vomiting/Diarrhea Lab Data Result diagrams: 04/12/21 14:30 04/12/21 14:30 Labs: Lab Results 04/12/21 04/12/21 Range/Units 14:30 14:30 WBC 6.1 (4.5-11.0) X10^3/uL RBC 3.50 L (4.0-5.2) X10^6/uL Hgb 9.3 L (12.0-16.0) g/dL Hct 29.1 L (36-46) % MCV 83.4 (80-100) fL MCH 26.7 (26-34) PG MCHC 32.0 (30-36) % RDW 16.7 H (11.6-14.8) % Plt Count 587 H (150-400) X10^3/uL Neut % (Auto) Not Reportable Lymph % (Auto) Not Reportable Sunflower % (Auto) Not Reportable Eos % (Auto) Not Reportable Baso % (Auto) Not Reportable Lymph # (Auto) Not Reportable Sunflower # (Auto) Not Reportable Baso # (Auto) Not Reportable Total Counted 100 Seg Neutrophils % 59.0 (38-70) % Band Neutrophils % 0.0 L (3-7) % Lymphocytes % (Manual) 25.0 (25-45) % Monocytes % (Manual) 5.0 (2-11) % Eosinophils % (Manual) 1.0 L (2-4) % Basophils % (Manual) 0.0 (0-1) % Neutrophils # (Manual) 3599 (1603-1113) /uL Platelet Estimate Increased on smear RBC Morphology Not Reportable Anisocytosis 1+ H Sodium 137 (137-145) mmol/L Potassium 3.9 (3.4-5.1) mmol/L Chloride 104 (98-107) mmol/L Carbon Dioxide 22 (22-32) mmol/L BUN 14 (7-17) mg/dL Creatinine 1.17 H (0.52-1.04) mg/dL Estimated GFR 47.3 L (>60) mL/min BUN/Creatinine Ratio 12.0 (6-22) Glucose 256 H (70-100) mg/dL Calcium 9.7 (8.4-10.2) mg/dL Total Bilirubin 0.8 (0.2-1.3) mg/dL AST 27 (14-36) IU/L ALT 20 (<35) IU/L Alkaline Phosphatase 122 (38-126) U/L Total Protein 7.3 (6.3-8.2) g/dL Albumin 3.6 (3.5-5.0) g/dL Globulin 3.7 (1.7-4.1) g/dL Albumin/Globulin Ratio 1.0 (1.0-2.8) Lipase 30 (23-300) U/L Point of Care Testing Glucose POC 278 MDM Narrative Medical decision making narrative: Patient does not have any sign of DKA no anion gap. Creatinine is slightly elevated from previous 0.7 and a 1.1. She has had IV fluid she is taking fluids by mouth. We discussed eating and even know she does not feel like it. It will help stabilize her sugars. We also discussed continuing to drink fluids. She overall appears well. Her incision site on her right arm is clean and dry there is a mild rash from the adhesive which is lateral to the actual incision and appears to be healing. Discharge Plan Departure Patient Disposition: Home Clinical Impression: Nausea & vomiting Instructions: Nausea and Vomiting-Adult Activity Restrictions/Additional Instructions: *You have been diagnosed with nausea and vomiting *What to do: Fortunately do not seem to have any diabetic complication. Please try and stay cool and hydrated. You will need to eat some complex carbohydrates such as meat cheese and vegetables. *Continue to take medications as directed Zofran 4 mg every 8 hours if needed for nausea or vomiting--> SENT TO [facility] Unfortunately I cannot find the correct prescription for your test strips please talk with Dr. Gomes *Follow up with your primary care provider in 2-3 days *Return to ER if you should have persistent nausea vomiting, increased pain or any new, worsening or concerning symptoms Prescriptions: New ondansetron 4 mg tablet,disintegrating 4 mg PO Q8H PRN (Reason: nausea and vomiting) Qty: 10 RF: 0 No Action Disabled Parking Permit Qty: 1 RF: 0 insulin lispro [Humalog KwikPen Insulin] 100 unit/mL insulin pen See Rx Instructions SUBCUT QACHS PRN (Reason: DM) Qty: 3 RF: 6 bupropion HCl 150 mg tablet sustained-release 12 hr 150 mg PO BID Qty: 60 RF: 5 pen needle, diabetic [BD Ultra-Fine Mini Pen Needle] 31 gauge x 3/16 needle See Rx Instructions .ROUTE .COMPLEX Qty: 250 RF: 6 duloxetine 40 mg capsule,delayed release(DR/EC) 40 mg PO QDAY Qty: 30 RF: 11 Emgality Syringe 120 mg/mL syringe 120 mg SUBCUT QMONTH Qty: 1 RF: 12 (DME) Blood Glucose Test Strip See Dose Instructions .ROUTE .MEDSUPPLY Qty: 360 RF: 3 losartan 100 mg tablet 100 mg PO DAILY Qty: 60 RF: 6 atorvastatin 40 mg tablet 40 mg PO QDAY Qty: 90 RF: 3 nortriptyline 50 mg capsule 50 mg PO HS Qty: 90 RF: 3 Lantus Solostar U-100 Insulin 100 unit/mL (3 mL) insulin pen 50 unit subcut QDAY Qty: 45 RF: 11 clonidine HCl 0.1 mg tablet 0.1 mg PO BID Qty: 180 RF: 3 desonide 0.05 % cream 1 applic TOP TID PRN (Reason: Rash, irritation) RF: 0 triamcinolone acetonide 0.1 % cream 1 applic TOP QID PRN (Reason: Rash, skin irritation) RF: 0 Advair HFA 230-21 mcg/actuation HFA aerosol inhaler 2 puff inhalation BID Qty: 12 RF: 3 albuterol sulfate 2.5 mg /3 mL (0.083 %) solution for nebulization 2.5 mg inhalation Q4-6H PRN (Reason: shortness of breath or wheezing) Qty: 180 RF: 4 mecobalamin (vitamin B12) 1,000 mcg tablet,chewable 1,000 mcg PO DAILY Qty: 90 RF: 3 fluticasone propionate 50 mcg/actuation spray,suspension 2 spray intranasal BEDTIME Qty: 16 RF: 3 calcium carbonate [Antacid (calcium carbonate)] 320 mg calcium (750 mg) tablet,chewable 2,250 mg PO DAILY Qty: 250 RF: 3 cholecalciferol (vitamin D3) 50 mcg (2,000 unit) capsule 50 mcg PO DAILY Qty: 90 RF: 3 Glucagon Emergency Kit (human) 1 mg recon soln 1 mg SUBCUT Q20M PRN (Reason: Hypoglycemia) RF: 0 amlodipine 5 mg tablet 5 mg PO DAILY Qty: 90 RF: 3 Victoza 2-Bon 0.6 mg/0.1 mL (18 mg/3 mL) pen injector 1.2 mg SUBCUT DAILY RF: 0 omeprazole 40 mg capsule,delayed release(DR/EC) 40 mg PO BID Qty: 180 RF: 3 ondansetron 4 mg tablet,disintegrating 4 mg PO Q8H PRN (Reason: nausea and vomiting) Qty: 10 RF: 0 epinephrine [EpiPen 2-Bon] 0.3 MG/0.3 ML auto-injector 0.3 mg IM SEE INSTRUCTIONS PRN (Reason: Allergic reactions) RF: 0 topiramate [Topamax] 50 mg Tablet 200 mg PO DAILY RF: 0 oxycodone 10 mg Tablet 10 mg PO Q4-6H PRN (Reason: Pain) Qty: 50 RF: 0 Pradaxa 150 mg capsule 150 mg PO BID Qty: 60 RF: 0 ondansetron HCl [Zofran] 4 mg tablet 4 mg PO Q6H PRN (Reason: nausea and vomiting) Qty: 10 RF: 0 Referrals: Sheng Gomes MD [Primary Care Provider] -
--- NOTE | 2021-04-12 16:40 | PC.NURSE ---
Patient tolerating PO fluids
[2021-04-12 17:03] VITALS: BP 128/76; PULSE 92; RESP 12; O2SAT 96
== END 2021-04-12 17:10 | disposition home or self-care (01) ==
PROVIDERS: Emergency Provider Emergency Medicine; PCP Internal Medicine
DX: R11.2 Nausea with vomiting, unspecified (principal); R19.7 Diarrhea, unspecified; R10.9 Unspecified abdominal pain
CPT/HCPCS: 36415; 80053; 82962; 83690; 85007; 85025; 93005; 99283; 99284

== ENCOUNTER → 2021-09-13 08:34 | Outpatient (CLI) | payer OTHER, MEDICAID, SELFPAY ==
[2021-03-26 17:21] VITALS: BMI 46.0
[2021-09-13 10:03] LABS: Hemoglobin A1C% w Est Avg Glu 9.1 % (4.0-6.0)
== END ==
PROVIDERS: PCP Internal Medicine; Referring Provider Student in an Organized Health Care Education/Training Program; Visit Provider Student in an Organized Health Care Education/Training Program
DX: E11.69 Type 2 diabetes mellitus with other specified complication (principal)
CPT/HCPCS: 36415; 83036

== ENCOUNTER → 2022-01-14 09:53 | Outpatient (CLI) | payer OTHER, MEDICAID, SELFPAY ==
[2021-03-26 17:21] VITALS: BMI 46.0
--- NOTE | 2022-01-14 09:54 | DI.MG.S_ITS ---
BILATERAL DIGITAL SCREENING MAMMOGRAM 3D/2D WITH CAD: 01/14/2022 CLINICAL: Routine screening. Comparison is made to exams dated: 12/06/2019 mammogram, 11/15/2018 mammogram, and 08/11/2017 mammogram - [facility]. The tissue of both breasts is predominantly fatty. Current study was also evaluated with a Computer Aided Detection (CAD) system. There are benign calcifications in both breasts. No significant masses, calcifications, or other findings are seen in either breast. There has been no significant interval change. IMPRESSION: BENIGN There is no mammographic evidence of malignancy. A 1 year screening mammogram is recommended. This exam was interpreted at Station ID: [id number]. NOTE: For mammograms, a report in lay terms will be sent to the patient. Approximately 15% of breast malignancies will not be visualized mammographically. In the management of a palpable breast mass, a negative mammogram must not discourage biopsy of a clinically suspicious lesion. Electronically Signed By: Renetta crystal/king:01/14/2022 13:32:28 letter sent: Normal Exam ACR BI-RADS Category 2: Benign Finding(s) 3342F
== END ==
PROVIDERS: PCP Internal Medicine; Referring Provider Internal Medicine; Visit Provider Internal Medicine
DX: Z12.31 Encounter for screening mammogram for malignant neoplasm of breast (principal)
CPT/HCPCS: 77063; 77067

== ENCOUNTER → 2022-01-18 10:11 | Outpatient (CLI) | payer OTHER, MEDICAID, SELFPAY ==
[2021-03-26 17:21] VITALS: BMI 46.0
[2022-01-18 12:47] LABS: Add Manual Diff / Slide Review NO; Basophils Absolute Auto 0 /uL (0-100); Basophils Percent Auto 0.6 % (0-2); Eosinophils Absolute Auto 100 /uL (0-450); Eosinophils Percent Auto 1.7 % (2-4); Hematocrit 36.2 % (36-46); Hemoglobin 12.2 g/dL (12.0-16.0); Lymphocytes Absolute Auto 3100 /uL (1100-4500); Lymphocytes Percent Auto 43.5 % (25-40); Mean Corpuscular HGB Conc 33.6 % (30-36); Mean Corpuscular Hemoglobin 28.7 PG (26-34); Mean Corpuscular Volume 85.4 fL (80-100); Monocytes Absolute Auto 500 /uL (0-900); Monocytes Percent Auto 7.1 % (3-14); Neutrophils Absolute Auto 3300 /uL (1500-7000); Neutrophils Percent Auto 47.1 % (50-75); Platelet Count 286 X10^3/uL (150-400); Red Blood Cell Count 4.24 X10^6/uL (4.0-5.2); Red Cell Distribution Width 15.9 % (11.6-14.8)
[2022-01-18 13:26] LABS: Hemoglobin A1C% w Est Avg Glu 9.6 % (4.0-6.0)
[2022-01-18 13:41] LABS: Erythrocyte Sedimentation Rate 43 MM/HR (0-20)
[2022-01-18 13:48] LABS: Alanine Aminotransferase 30 IU/L (<35); Albumin 3.6 g/dL (3.5-5.0); Albumin Globulin Ratio 1.2 (1.0-2.8); Alkaline Phosphatase 93 U/L (38-126); Aspartate Aminotransferase 28 IU/L (14-36); BUN Creatinine Ratio 17.3 (6-22); Bilirubin Total 0.5 mg/dL (0.2-1.3); Blood Urea Nitrogen 13 mg/dL (7-17); C-Reactive Protein Quant 2.1 mg/dL (<1.0); Calcium 9.3 mg/dL (8.4-10.2); Carbon Dioxide 27 mmol/L (22-32); Chloride 99 mmol/L (98-107); Estimated Glomerular Filt Rate > 60.0 mL/min (>60); Globulin 2.9 g/dL (1.7-4.1); Glucose 352 mg/dL (80-110); HEMOLYSIS < 15 (0-50); Potassium 4.6 mmol/L (3.4-5.1); Sodium 137 mmol/L (137-145); Total Protein 6.5 g/dL (6.3-8.2)
[2022-01-18 14:11] LABS: TSH w/ Reflex to FT4 2.34 uIU/mL (0.47-4.68)
== END ==
PROVIDERS: PCP Internal Medicine; Referring Provider Internal Medicine; Visit Provider Internal Medicine
DX: E03.9 Hypothyroidism, unspecified (principal); E11.42 Type 2 diabetes mellitus with diabetic polyneuropathy; I10 Essential (primary) hypertension; E11.65 Type 2 diabetes mellitus with hyperglycemia; Z79.4 Long term (current) use of insulin; K21.9 Gastro-esophageal reflux disease without esophagitis
CPT/HCPCS: 36415; 80053; 83036; 84443; 85025; 85651; 86140

== ENCOUNTER 2022-06-01 13:47 | Emergency (ER) | payer OTHER, MEDICAID, SELFPAY ==
[2021-03-26 17:21] VITALS: BMI 46.0
[2022-06-01 13:50] VITALS: BP 215/107; PULSE 116; RESP 20; TEMP 36.5; O2SAT 97; BMI 42.7
--- NOTE | 2022-06-01 13:57 | DI.RAD.S_ITS ---
PROCEDURE: XR RIBS LT MIN 3V W CXR1V INDICATIONS: fall, L side injury TECHNIQUE: 2 views of the left ribs were acquired, along with a single view chest. COMPARISON: None. FINDINGS: Surgical changes and devices: None. Bones and chest wall: No fractures or dislocations. No suspicious bony lesions. Overlying soft tissues appear unremarkable. Total right shoulder arthroplasty noted Lungs and pleura: No pleural effusions or pneumothorax. Lungs appear clear. Mediastinum: Mediastinal contours appear normal. Heart size is normal. IMPRESSION: No acute cardiopulmonary findings. No evidence of rib fracture Approved by: Yimi Gonzalez M.D. on 06/01/2022 at 13:53
--- NOTE | 2022-06-01 15:42 | ED_ITS ---
HPI - Fall <Isaiah IyerMARYAM - Last Filed: 06/01/22 15:59> General Chief Complaint: Fall Stated Complaint: Lt. side pain due to fall Time Seen by Provider: 06/01/22 15:42 Source: patient Mode of arrival: Ambulatory History of Present Illness HPI Narrative: 61-year-old female, former smoker, presents emergency department with left-sided rib pain. Patient was moving a Tote in her living room, fell backwards and hit her left side ribs on her sofa. Patient states it knocked the wind out of her and she is having a hard time with deep breaths. Patient denies hitting her head or any loss of consciousness. Related Data Home Medications Medication Instructions Recorded Confirmed glucagon (human recombinant) 1 mg 1 mg SUBCUT Q20M PRN Hypoglycemia 11/25/19 05/03/22 solution for injection (Glucagon Emergency Kit) liraglutide 0.6 mg/0.1 mL (18 mg/3 1.2 mg SUBCUT DAILY 08/13/20 05/03/22 mL) subcutaneous pen injector (Victoza 2-Bon) desonide 0.05 % topical cream 1 applic topical TID PRN Rash, 02/09/21 05/03/22 irritation triamcinolone acetonide 0.1 % 1 applic topical QID PRN Rash, 02/09/21 05/03/22 topical cream skin irritation epinephrine 0.3 mg/0.3 mL 0.3 mg IM SEE INSTRUCTIONS PRN 03/25/21 05/03/22 injection, auto-injector (EpiPen Allergic reactions 2-Bon) topiramate 50 mg tablet (Topamax) 200 mg PO DAILY 03/26/21 05/03/22 Previous Rx's Medication Instructions Recorded insulin lispro 100 unit/mL See Rx Instructions SUBCUT QACHS 09/18/18 subcutaneous pen (Humalog KwikPen PRN DM #3 ea (U-100) Insulin) amlodipine 5 mg tablet 5 mg PO DAILY #90 tabs 09/01/20 insulin glargine 100 unit/mL (3 50 unit (0.5 mL) SUBCUT QDAY #45 mL 12/24/20 mL) subcutaneous pen (Lantus Solostar U-100 Insulin) albuterol sulfate 2.5 mg/3 mL 2.5 mg (3 mL) inhalation Q4-6H PRN 02/09/21 (0.083 %) solution for nebulization shortness of breath or wheezing #180 mL calcium carbonate 320 mg calcium 2,250 mg PO DAILY #250 tabs 02/09/21 (750 mg) chewable tablet (Antacid (calcium carbonate)) cholecalciferol (vitamin D3) 50 50 mcg PO DAILY #90 caps 02/09/21 mcg (2,000 unit) capsule fluticasone propionate 230 2 puff inhalation BID #12 grams 02/09/21 mcg-salmeterol 21 mcg/actuation HFA inhaler (Advair HFA) fluticasone propionate 50 2 spray intranasal BEDTIME #16 02/09/21 mcg/actuation nasal grams spray,suspension mecobalamin (vitamin B12) 1,000 1,000 mcg PO DAILY #90 tabs 02/09/21 mcg chewable tablet ondansetron 4 mg disintegrating 4 mg PO Q8H PRN nausea and 03/20/21 tablet vomiting #10 tabs oxycodone 10 mg tablet 10 mg PO Q4-6H PRN Pain #50 tabs 03/28/21 dabigatran etexilate 150 mg 150 mg PO BID #60 caps 04/05/21 capsule (Pradaxa) blood-glucose meter (Blood Glucose #1 ea 04/16/21 Monitoring kit) lancets 30 gauge ([facility] ea 04/23/21 Lancets) pen needle, diabetic 31 gauge x See Rx Instructions .Route 05/31/2112/29 (BD Ultra-Fine Mini Pen .COMPLEX #250 ea Needle) duloxetine 40 mg capsule,delayed 40 mg PO QDAY #30 caps 10/12/21 release atorvastatin 40 mg tablet 40 mg PO QDAY #90 tabs 10/19/21 omeprazole 40 mg capsule,delayed 40 mg PO BID #180 caps 10/19/21 release galcanezumab-gnlm 120 mg/mL 120 mg SUBCUT QMONTH #1 mL 10/26/21 subcutaneous syringe (Emgality) blood sugar diagnostic (OneTouch #100 ea 11/01/21 Verio test strips) bupropion HCl 150 mg tablet,12 hr 150 mg PO BID #180 tabs 12/09/21 sustained-release losartan 100 mg tablet 100 mg PO DAILY #60 tabs 03/17/22 Disabled Parking #1 ea 01/17/22 diazepam 5 mg tablet 5 - 10 mg PO ONCE PRN anxiety #6 01/17/22 tabs triamcinolone acetonide 0.1 % 1 applic topical QID #30 grams 01/17/22 topical cream gabapentin 300 mg capsule 300 mg PO BEDTIME #90 caps 01/19/22 nortriptyline 50 mg capsule 50 mg PO HS #90 caps 01/25/22 clonidine HCl 0.1 mg tablet 0.1 mg PO BID #180 tabs 02/07/22 ondansetron HCl 4 mg tablet 4 mg PO Q6H PRN nausea and 03/22/22 vomiting #10 tabs clonazepam 1 mg tablet 1 mg PO BID #60 tabs 05/03/22 oxycodone-acetaminophen 5 mg-325 1 tab PO Q6H PRN pain #10 tabs 06/01/22 mg tablet (Percocet) Allergies Allergy/AdvReac Type Severity Reaction Status Date / Time aspirin [ASPIRIN] Allergy Severe Breathing Verified 06/01/22 13:55 problem erythromycin base Allergy Severe Throat Verified 06/01/22 13:55 [ERYTHROMYCIN BASE] closes sumatriptan [SUMATRIPTAN] Allergy Severe Anaphylaxis Verified 06/01/22 13:55 meperidine [MEPERIDINE] Allergy Mild Rash Verified 06/01/22 13:55 hydrocodone [From VICODIN] Allergy Unknown Verified 06/01/22 13:55 adhesive tape Allergy Rash Verified 06/01/22 13:55 NSAIDS (Non-Steroidal Allergy Verified 06/01/22 13:55 Anti-Inflamma sweet potato Allergy Anaphylaxis Verified 06/01/22 13:55 ibuprofen [IBUPROFEN] AdvReac Mild Headache, Verified 06/01/22 13:55 vomiting Review of Systems <Isaiah Iyer TREASURY CONSULTANT - Last Filed: 06/01/22 15:59> Review of Systems Narrative: Narrative: GENERAL: Denies chills, fatigue, fever, sweats. See HPI HEENT: Denies sinus pain, ear pain, sore throat, difficulty swallowing, dizziness. RESPIRATORY: Denies dyspnea, cough, wheezing, sputum. CARDIOVASCULAR: Denies palpitations, edema. GASTROINTESTINAL: Denies nausea, vomiting, abdominal pain, diarrhea, constipation. : Denies dysuria, frequency, incontinence, hematuria, urinary retention, flank pain. MSK: Denies weakness, joint pain. Left-sided rib pain with movement or palpation. SKIN: Denies rash, skin lesions, or pruritis. NEUROLOGIC: Denies weakness, dizziness, headache, numbness, confusion. PSYCHIATRIC: No concerning psychosocial issues. Patient History <MARYAM Franks - Last Filed: 06/01/22 15:59> Medical History Acquired hypothyroidism (01/14/16) Anxiety (05/12/17) Asthma Body mass index (BMI) of 40.1 to 44.9 in adult (01/06/17) Body mass index 45.0-49.9, adult GERD (gastroesophageal reflux disease) (05/27/11) H/O migraine Mixed hyperlipidemia (05/27/11) Moderate persistent asthma without complication (05/27/11) Morbid obesity due to excess calories (01/06/17) Recurrent major depressive disorder, in partial remission (05/12/17) Type 2 diabetes mellitus with diabetic polyneuropathy (08/21/15) Type 2 diabetes mellitus with hyperglycemia, with long-term current use of insulin (04/15/16) Surgical History Fracture S/P total abdominal hysterectomy and bilateral salpingo-oophorectomy Status post cholecystectomy Status post reverse total arthroplasty of right shoulder (~03/2021) Surgical procedure planned Social History marital status: number of children: 3 household members: significant other lives independently: Yes caregiver/support person: No housing: apartment pets and animals: Yes education level: college occupational status: disabled current occupational exposures/hazards: No Previous occupational history: Restuarant liliam/roman catholic: Islam leisure activities: other Smoking Status: Former smoker Tobacco: How many years used: 10 Smokeless tobacco user: other quit status: quit date established alcohol intake: never substance use type: other Smoking Status: Former smoker alcohol intake frequency: other Substance Use Type: marijuana Exam <MARYAM Franks - Last Filed: 06/01/22 15:59> Narrative Exam Narrative: Exam Narrative: GENERAL: This is a well-nourished, well-developed patient, in no acute distress HEAD: Atraumatic. Normocephalic. EYES: Pupils equal round and reactive. Extraocular motions intact. No scleral icterus, injection or drainage. ENT: Nose without bleeding, purulent drainage. Throat without erythema, tonsillar hypertrophy or exudate. Airway patent. NECK: Trachea midline. No JVD or lymphadenopathy. Nontender. CARDIOVASCULAR: Regular rate and rhythm without murmurs, peripheral pulses intact, cap refill <2 sec. RESPIRATORY: Breath sounds equal and clear bilaterally. No wheezes, rales, or rhonchi. No cough. No increased respiratory effort. No accessory muscle use. GASTROINTESTINAL: Abdomen soft, non-tender, nondistended without guarding or rebound. No suprapubic pain. MSK: Moves all extremities. Neurovascularly intact. Left lateral ribs tender with palpation or with certain movements. NEURO: A&O x 3. SKIN: Warm, dry, no rashes or lesions noted. No bruising noted Initial Vital Signs Initial Vital Signs: Vital Signs Temperature 97.7 F 06/01/22 13:50 Pulse Rate 116 H 06/01/22 13:50 Respiratory Rate 20 06/01/22 13:50 Blood Pressure 215/107 H 06/01/22 13:50 Pulse Oximetry 97 06/01/22 13:50 Oxygen Delivery Method 06/01/22 13:50 Reviewed <Stephie Angel DO - Last Filed: 06/02/22 08:03> Initial Vital Signs Initial Vital Signs: Vital Signs Temperature 97.7 F 06/01/22 13:50 Pulse Rate 116 H 06/01/22 13:50 Respiratory Rate 20 06/01/22 13:50 Blood Pressure 215/107 H 06/01/22 13:50 Pulse Oximetry 97 06/01/22 13:50 Oxygen Delivery Method 06/01/22 13:50 Course <MARYAM Franks - Last Filed: 06/01/22 15:59> Orders Ordered: ED Orders 06/01/22 13:57 XR ribs LT min 3V w CXR1V Stat Vital Signs Vital signs: Vital Signs - 8 hr 06/01/22 13:50 Temperature 97.7 F Pulse Rate 116 H Respiratory Rate 20 Blood Pressure 215/107 H Pulse Oximetry 97 Oxygen Delivery Method Room Air <Stephie Angel DO - Last Filed: 06/02/22 08:03> Orders Ordered: ED Orders 06/01/22 13:57 XR ribs LT min 3V w CXR1V Stat Vital Signs Vital signs: Vital Signs - 8 hr 06/01/22 13:50 Temperature 97.7 F Pulse Rate 116 H Respiratory Rate 20 Blood Pressure 215/107 H Pulse Oximetry 97 Oxygen Delivery Method Room Air MDM - Fall <KRIS FranksP - Last Filed: 06/01/22 15:59> Differential Diagnosis Differential diagnosis: Likely other (Rib contusion) Imaging Data Chest x-ray: Radiologist's Impression: [address] [address] XRay Report Signed Patient: Jessie Knapp MR#: [id number] : 1960 Acct:[id number] Age/Sex: 61 / F Date of Service: 06/01/22 Loc: ED Accession Number: [id number] ?? Procedure: XR ribs LT min 3V w CXR1V Ordering Provider: Stephie Angel D.O. PROCEDURE:? XR RIBS LT MIN 3V W CXR1V ? INDICATIONS:? fall, L side injury ? TECHNIQUE:? 2 views of the left ribs were acquired, along with a single view chest.? ? COMPARISON:? None. ? FINDINGS:? ? Surgical changes and devices:? None.? ? Bones and chest wall:? No fractures or dislocations.? No suspicious bony lesions.? Overlying soft tissues appear unremarkable.? Total right shoulder arthroplasty noted ? Lungs and pleura:? No pleural effusions or pneumothorax.? Lungs appear clear.? ? Mediastinum:? Mediastinal contours appear normal.? Heart size is normal.? ? IMPRESSION:? ? No acute cardiopulmonary findings. No evidence of rib fracture ? ? ? Approved by: Yimi Gonzalez M.D. on 06/01/2022 at 13:53? [facility] Narrative Medical decision making narrative: 61-year-old female presents emergency department with left-sided rib pain after falling against her sofa earlier today. No obvious deformity or bruising noted. Chest x-ray was negative for rib fracture. Recommended rest, gentle range of motion stretching exercises, hot or cold compresses to the affected site. Patient states she is unable to take Tylenol or ibuprofen. Short course of pain medications prescribed. Discussed plan of care and return precautions with patient, who was agreeable with course of action. Discharge Plan Departure Patient Disposition: Home Clinical Impression: Rib injury Instructions: How to Prevent Falls Activity Restrictions/Additional Instructions: *You have been diagnosed with a suspected left rib contusion. Your x-rays were negative. I recommend you get plenty of rest, use hot or cold compresses to the affected site, gentle range of motion stretching exercises and take pain medications for worsening pain. For any worsening symptoms, please follow-up with your family doctor or feel free to return to the emergency department. *What to do: *Please continue to take your regular medications as directed. [ ] New medication prescriptions sent to your pharmacy: [ ] [x ] New medication written as a paper prescription [ ] No new medications given *Please follow up with your primary care provider in 2-3 days, call for an appointment. Let them know you were seen in the Emergency Department and that we ask that you be seen in follow up. We will electronically transmit a record of today's note if your PCP is in our system *If you do not have a primary care provider please contact the [facility] Resource line at [phone]. They will ask some questions about your medical history and help get you set up with a doctor in the community. ? Return to ER if you should have any new, worsening or concerning symptoms, such as worsening pain, severe headache, confusion, chest pain, difficulty breathing, fever greater than 101 F, shaking chills, persistent vomiting to the point that you cannot drink fluids, or other new or worsening symptoms. Prescriptions: New oxycodone-acetaminophen [Percocet] 5-325 mg tablet 1 tab PO Q6H PRN (Reason: pain) Qty: 10 0RF No Action insulin lispro [Humalog KwikPen Insulin] 100 unit/mL insulin pen See Rx Instructions SUBCUT QACHS PRN (Reason: DM) Qty: 3 6RF Dose Instruction: Use before meals. If carbs are taken use 5units of insulin. Or as directed by doctor. SUBCUT QACHS PRN; Use before meals. If carbs are taken use 5units of insulin. Or as directed by doctor. Rx Instructions: Use before meals. If carbs are taken use 5units of insulin. Or as directed by doctor. Lantus Solostar U-100 Insulin 100 unit/mL (3 mL) insulin pen 50 unit subcut QDAY Qty: 45 11RF (DME) lancets [OneTouch Delica Lancets] 30 gauge misc See Rx Instructions .Route Qty: 200 6RF Rx Instructions: Use to check blood sugars 4x a day duloxetine 40 mg capsule,delayed release(DR/EC) 40 mg PO QDAY Qty: 30 11RF omeprazole 40 mg capsule,delayed release(DR/EC) 40 mg PO BID Qty: 180 3RF atorvastatin 40 mg tablet 40 mg PO QDAY Qty: 90 3RF Emgality Syringe 120 mg/mL syringe 120 mg SUBCUT QMONTH Qty: 1 12RF (DME) OneTouch Verio test strips Strip See Rx Instructions .Route Qty: 100 6RF Rx Instructions: Use to check blood sugars 4x a day bupropion HCl 150 mg tablet sustained-release 12 hr 150 mg PO BID Qty: 180 3RF losartan 100 mg tablet 100 mg PO DAILY Qty: 60 5RF nortriptyline 50 mg capsule 50 mg PO HS Qty: 90 3RF clonidine HCl 0.1 mg tablet 0.1 mg PO BID Qty: 180 3RF ondansetron HCl 4 mg tablet 4 mg PO Q6H PRN (Reason: nausea and vomiting) Qty: 10 2RF desonide 0.05 % cream 1 applic TOP TID PRN (Reason: Rash, irritation) triamcinolone acetonide 0.1 % cream 1 applic TOP QID PRN (Reason: Rash, skin irritation) Advair HFA 230-21 mcg/actuation HFA aerosol inhaler 2 puff inhalation BID Qty: 12 3RF Rx Instructions: administer with spacer albuterol sulfate 2.5 mg /3 mL (0.083 %) solution for nebulization 2.5 mg inhalation Q4-6H PRN (Reason: shortness of breath or wheezing) Qty: 180 4RF mecobalamin (vitamin B12) 1,000 mcg tablet,chewable 1,000 mcg PO DAILY Qty: 90 3RF fluticasone propionate 50 mcg/actuation spray,suspension 2 spray intranasal BEDTIME Qty: 16 3RF Rx Instructions: administer into each nostril calcium carbonate [Antacid (calcium carbonate)] 320 mg calcium (750 mg) tablet,chewable 2,250 mg PO DAILY Qty: 250 3RF cholecalciferol (vitamin D3) 50 mcg (2,000 unit) capsule 50 mcg PO DAILY Qty: 90 3RF pen needle, diabetic [BD Ultra-Fine Mini Pen Needle] 31 gauge x 3/16 needle See Rx Instructions .ROUTE .COMPLEX Qty: 250 6RF Dose Instruction: USE DIRECTED Rx Instructions: USE DIRECTED 4x A DAY TO MONITOR BLOOD SUGARS. (DME) Disabled Parking See Rx Instructions .ROUTE .MEDSUPPLY Qty: 1 0RF Rx Instructions: Patient qualifies for disabled parking as per the attached form. diazepam 5 mg tablet 5 - 10 mg PO ONCE PRN (Reason: anxiety) Qty: 6 0RF triamcinolone acetonide 0.1 % cream 1 applic topical QID Qty: 30 0RF gabapentin 300 mg capsule 300 mg PO BEDTIME Qty: 90 3RF Glucagon Emergency Kit (human) 1 mg recon soln 1 mg SUBCUT Q20M PRN (Reason: Hypoglycemia) amlodipine 5 mg tablet 5 mg PO DAILY Qty: 90 3RF Victoza 2-Bon 0.6 mg/0.1 mL (18 mg/3 mL) pen injector 1.2 mg SUBCUT DAILY (DME) blood-glucose meter [Blood Glucose Monitoring] Kit See Rx Instructions .Route Qty: 1 0RF Rx Instructions: As directed clonazepam 1 mg tablet 1 mg PO BID Qty: 60 1RF ondansetron 4 mg tablet,disintegrating 4 mg PO Q8H PRN (Reason: nausea and vomiting) Qty: 10 0RF epinephrine [EpiPen 2-Bon] 0.3 MG/0.3 ML auto-injector 0.3 mg IM SEE INSTRUCTIONS PRN (Reason: Allergic reactions) topiramate [Topamax] 50 mg Tablet 200 mg PO DAILY oxycodone 10 mg Tablet 10 mg PO Q4-6H PRN (Reason: Pain) Qty: 50 0RF Pradaxa 150 mg capsule 150 mg PO BID Qty: 60 0RF Referrals: Sheng Gomes MD [Primary Care Provider] - Visit Report Forms: Patient Portal/API <Stephie Angel DO - Last Filed: 06/02/22 08:03> Cosign ED Attending Barronature Attestation: I was immediately available in the department for consultation. Documentation has been reviewed. I agree with assessment and plan.
[2022-06-01 16:00] VITALS: BP 180/90; PULSE 85; RESP 18; O2SAT 99
== END 2022-06-01 16:00 | disposition home or self-care (01) ==
PROVIDERS: Emergency Provider Registered Nurse; PCP Internal Medicine
DX: S29.9XXA Unspecified injury of thorax, initial encounter (principal); W19.XXXA Unspecified fall, initial encounter
CPT/HCPCS: 71101; 99281; 99283

== ENCOUNTER 2022-08-17 06:10 | Emergency (ER) | payer OTHER, MEDICAID, SELFPAY ==
[2021-03-26 17:21] VITALS: BMI 46.0
[2022-08-17 06:16] VITALS: BP 188/84; PULSE 76; RESP 18; TEMP 36.6; O2SAT 98
--- NOTE | 2022-08-17 06:40 | ED_ITS ---
HPI - Nausea/Vomiting/Diarrhea General Chief complaint: Nausea/Vomiting/Diarrhea Stated complaint: throwing up Time Seen by Provider: 08/17/22 06:34 Source: patient Mode of arrival: Ambulatory History of Present Illness HPI Narrative: Patient is a 61-year-old female with history of diabetes hypertension asthma presenting with 1 episode of vomiting. She has been waiting in the emergency department with her friend which he suddenly got nauseous. She does not check her glucose she is unsure what it is. She filled up of vomit bag and checked herself in. She now feels like she is hungry she took a Zofran in the waiting room. Glucose now is 125 she has no abdominal pain no chest pain shortness of breath cough fever chills or any other symptoms. Related Data Home Medications Medication Instructions Recorded Confirmed glucagon (human recombinant) 1 mg 1 mg SUBCUT Q20M PRN Hypoglycemia 11/25/19 05/03/22 solution for injection (Glucagon Emergency Kit) liraglutide 0.6 mg/0.1 mL (18 mg/3 1.2 mg SUBCUT DAILY 08/13/20 05/03/22 mL) subcutaneous pen injector (Victoza 2-Bon) desonide 0.05 % topical cream 1 applic topical TID PRN Rash, 02/09/21 05/03/22 irritation triamcinolone acetonide 0.1 % 1 applic topical QID PRN Rash, 02/09/21 05/03/22 topical cream skin irritation epinephrine 0.3 mg/0.3 mL 0.3 mg IM SEE INSTRUCTIONS PRN 03/25/21 05/03/22 injection, auto-injector (EpiPen Allergic reactions 2-Bon) topiramate 50 mg tablet (Topamax) 200 mg PO DAILY 03/26/21 05/03/22 Previous Rx's Medication Instructions Recorded insulin lispro 100 unit/mL See Rx Instructions SUBCUT QACHS 09/18/18 subcutaneous pen (Humalog KwikPen PRN DM #3 ea (U-100) Insulin) amlodipine 5 mg tablet 5 mg PO DAILY #90 tabs 09/01/20 insulin glargine 100 unit/mL (3 50 unit (0.5 mL) SUBCUT QDAY #45 mL 12/24/20 mL) subcutaneous pen (Lantus Solostar U-100 Insulin) albuterol sulfate 2.5 mg/3 mL 2.5 mg (3 mL) inhalation Q4-6H PRN 02/09/21 (0.083 %) solution for nebulization shortness of breath or wheezing #180 mL calcium carbonate 320 mg calcium 2,250 mg PO DAILY #250 tabs 02/09/21 (750 mg) chewable tablet (Antacid (calcium carbonate)) cholecalciferol (vitamin D3) 50 50 mcg PO DAILY #90 caps 02/09/21 mcg (2,000 unit) capsule fluticasone propionate 230 2 puff inhalation BID #12 grams 02/09/21 mcg-salmeterol 21 mcg/actuation HFA inhaler (Advair HFA) fluticasone propionate 50 2 spray intranasal BEDTIME #16 02/09/21 mcg/actuation nasal grams spray,suspension mecobalamin (vitamin B12) 1,000 1,000 mcg PO DAILY #90 tabs 02/09/21 mcg chewable tablet ondansetron 4 mg disintegrating 4 mg PO Q8H PRN nausea and 03/20/21 tablet vomiting #10 tabs oxycodone 10 mg tablet 10 mg PO Q4-6H PRN Pain #50 tabs 03/28/21 dabigatran etexilate 150 mg 150 mg PO BID #60 caps 04/05/21 capsule (Pradaxa) blood-glucose meter (Blood Glucose #1 ea 04/16/21 Monitoring kit) lancets 30 gauge (MyParichayTouch Hazel #200 ea 04/23/21 Lancets) pen needle, diabetic 31 gauge x See Rx Instructions .Route 05/31/2112/29 (BD Ultra-Fine Mini Pen .COMPLEX #250 ea Needle) duloxetine 40 mg capsule,delayed 40 mg PO QDAY #30 caps 10/12/21 release atorvastatin 40 mg tablet 40 mg PO QDAY #90 tabs 10/19/21 omeprazole 40 mg capsule,delayed 40 mg PO BID #180 caps 10/19/21 release galcanezumab-gnlm 120 mg/mL 120 mg SUBCUT QMONTH #1 mL 10/26/21 subcutaneous syringe (Emgality) blood sugar diagnostic (OneTouch #100 ea 11/01/21 Verio test strips) bupropion HCl 150 mg tablet,12 hr 150 mg PO BID #180 tabs 12/09/21 sustained-release losartan 100 mg tablet 100 mg PO DAILY #60 tabs 12/30/21 Disabled Parking #1 ea 01/17/22 diazepam 5 mg tablet 5 - 10 mg PO ONCE PRN anxiety #6 01/17/22 tabs triamcinolone acetonide 0.1 % 1 applic topical QID #30 grams 01/17/22 topical cream gabapentin 300 mg capsule 300 mg PO BEDTIME #90 caps 01/19/22 nortriptyline 50 mg capsule 50 mg PO HS #90 caps 01/25/22 clonidine HCl 0.1 mg tablet 0.1 mg PO BID #180 tabs 02/07/22 ondansetron HCl 4 mg tablet 4 mg PO Q6H PRN nausea and 03/22/22 vomiting #10 tabs oxycodone-acetaminophen 5 mg-325 1 tab PO Q6H PRN pain #10 tabs 06/01/22 mg tablet (Percocet) clonazepam 1 mg tablet 1 mg PO BID #60 tabs 07/18/22 ondansetron 4 mg disintegrating 4 mg PO Q8H PRN nausea and 08/17/22 tablet vomiting #10 tabs Allergies Allergy/AdvReac Type Severity Reaction Status Date / Time aspirin [ASPIRIN] Allergy Severe Breathing Verified 06/01/22 13:55 problem erythromycin base Allergy Severe Throat Verified 06/01/22 13:55 [ERYTHROMYCIN BASE] closes sumatriptan [SUMATRIPTAN] Allergy Severe Anaphylaxis Verified 06/01/22 13:55 meperidine [MEPERIDINE] Allergy Mild Rash Verified 06/01/22 13:55 hydrocodone [From VICODIN] Allergy Unknown Verified 06/01/22 13:55 adhesive tape Allergy Rash Verified 06/01/22 13:55 NSAIDS (Non-Steroidal Allergy Verified 06/01/22 13:55 Anti-Inflamma sweet potato Allergy Anaphylaxis Verified 06/01/22 13:55 ibuprofen [IBUPROFEN] AdvReac Mild Headache, Verified 06/01/22 13:55 vomiting Review of Systems Review of Systems Narrative: GENERAL: Denies chills, fatigue, malaise, fever, sweats, travel HEENT: Denies sinus pain, ear pain, sore throat, difficulty swallowing, neck pain RESPIRATORY: Denies dyspnea, cough, wheezing, hemoptysis, sputum. CARDIOVASCULAR: Denies chest pain, palpitations, orthopnea, edema GASTROINTESTINAL: See HPI : Denies dysuria, frequency, incontinence, hematuria, urinary retention, flank pain. MUSCULOSKELETAL: Denies weakness, joint pain, or bony pain SKIN: No rash, no erythema, no pruritus NEUROLOGIC: Denies weakness, dizziness, headache, numbness, change in speech, confusion PSYCHIATRIC: No concerning psychosocial issues. 12 point review of systems is negative except for those stated above and HPI Patient History Medical History Acquired hypothyroidism (01/14/16) Anxiety (05/12/17) Asthma Body mass index (BMI) of 40.1 to 44.9 in adult (01/06/17) Body mass index 45.0-49.9, adult GERD (gastroesophageal reflux disease) (05/27/11) H/O migraine Mixed hyperlipidemia (05/27/11) Moderate persistent asthma without complication (05/27/11) Morbid obesity due to excess calories (01/06/17) Recurrent major depressive disorder, in partial remission (05/12/17) Type 2 diabetes mellitus with diabetic polyneuropathy (08/21/15) Type 2 diabetes mellitus with hyperglycemia, with long-term current use of insulin (04/15/16) Surgical History Fracture S/P total abdominal hysterectomy and bilateral salpingo-oophorectomy Status post cholecystectomy Status post reverse total arthroplasty of right shoulder (~03/2021) Surgical procedure planned Social History marital status: number of children: 3 household members: significant other lives independently: Yes caregiver/support person: No housing: apartment pets and animals: Yes education level: college occupational status: disabled current occupational exposures/hazards: No Previous occupational history: Restuarant liliam/nondenominational: [employer] leisure activities: other Smoking Status: Former smoker Tobacco: How many years used: 10 Smokeless tobacco user: other quit status: quit date established alcohol intake: never substance use type: other Smoking Status: Former smoker alcohol intake frequency: other Substance Use Type: marijuana Exam Initial Vital Signs Initial Vital Signs: Vital Signs Temperature 97.8 F 08/17/22 06:16 Pulse Rate 76 08/17/22 06:16 Respiratory Rate 18 08/17/22 06:16 Blood Pressure 188/84 H 11/02/22 06:16 Pulse Oximetry 98 08/17/22 06:16 Oxygen Delivery Method 08/17/22 06:16 GENERAL: Alert 61-year-old female no acute distress HEENT: Head atraumatic,EOMI, pupils reactive, face symmetric, moist mucous membranes CARDIOVASCULAR: Regular rate and rhythm without murmurs, rubs or gallops. RESPIRATORY: Breath sounds equal bilaterally, no wheezes rales or rhonchi. ABDOMEN: Soft, nontender. Normoactive bowel sounds all 4 quadrants. No guarding or rebound. EXTREMITIES: Normal range of motion, no clubbing or edema. Neurovascularly intact NEUROLOGICAL: Alert and oriented x4. SKIN: Warm, dry, no laceration, no petechiae, no rashes or lesions. Course Vital Signs Vital signs: Vital Signs - 8 hr 08/17/22 06:16 Temperature 97.8 F Pulse Rate 76 Respiratory Rate 18 Blood Pressure 188/84 H Pulse Oximetry 98 Oxygen Delivery Method Room Air MDM - Nausea/Vomiting/Diarrhea Lab Data Labs: Point of Care Testing Glucose POC 125 MDM Narrative Medical decision making narrative: Patient's glucose is 125 she vomited once. She is now eating a turkey sandwich. At this time I see no need for any blood work or further workup in the emergency department she overall appears well vitals are stable. Discharge Plan Departure Patient Disposition: Home Clinical Impression: Vomiting Instructions: DI for Vomiting -- Adult Activity Restrictions/Additional Instructions: *You have been diagnosed with vomiting *What to do: At this time please go home drink fluids eat if tolerated *Continue to take medications as directed Zofran 4 mg every 8 hours if needed for nausea or vomiting --> SENT TO [facility] *Follow up with your primary care provider in 2-3 days or call [phone] *Return to ER if you should have persistent vomiting abdominal pain or any new, worsening or concerning symptoms Prescriptions: New ondansetron 4 mg tablet,disintegrating 4 mg PO Q8H PRN (Reason: nausea and vomiting) Qty: 10 0RF No Action insulin lispro [Humalog KwikPen Insulin] 100 unit/mL insulin pen See Rx Instructions SUBCUT QACHS PRN (Reason: DM) Qty: 3 6RF Dose Instruction: Use before meals. If carbs are taken use 5units of insulin. Or as directed by doctor. SUBCUT QACHS PRN; Use before meals. If carbs are taken use 5units of insulin. Or as directed by doctor. Rx Instructions: Use before meals. If carbs are taken use 5units of insulin. Or as directed by doctor. Lantus Solostar U-100 Insulin 100 unit/mL (3 mL) insulin pen 50 unit subcut QDAY Qty: 45 11RF (DME) lancets [OneTouch Delica Lancets] 30 gauge misc See Rx Instructions .Route Qty: 200 6RF Rx Instructions: Use to check blood sugars 4x a day duloxetine 40 mg capsule,delayed release(DR/EC) 40 mg PO QDAY Qty: 30 11RF omeprazole 40 mg capsule,delayed release(DR/EC) 40 mg PO BID Qty: 180 3RF atorvastatin 40 mg tablet 40 mg PO QDAY Qty: 90 3RF Emgality Syringe 120 mg/mL syringe 120 mg SUBCUT QMONTH Qty: 1 12RF (DME) OneTouch Verio test strips Strip See Rx Instructions .Route Qty: 100 6RF Rx Instructions: Use to check blood sugars 4x a day bupropion HCl 150 mg tablet sustained-release 12 hr 150 mg PO BID Qty: 180 3RF losartan 100 mg tablet 100 mg PO DAILY Qty: 60 5RF nortriptyline 50 mg capsule 50 mg PO HS Qty: 90 3RF clonidine HCl 0.1 mg tablet 0.1 mg PO BID Qty: 180 3RF ondansetron HCl 4 mg tablet 4 mg PO Q6H PRN (Reason: nausea and vomiting) Qty: 10 2RF clonazepam 1 mg tablet 1 mg PO BID Qty: 60 3RF desonide 0.05 % cream 1 applic TOP TID PRN (Reason: Rash, irritation) triamcinolone acetonide 0.1 % cream 1 applic TOP QID PRN (Reason: Rash, skin irritation) Advair HFA 230-21 mcg/actuation HFA aerosol inhaler 2 puff inhalation BID Qty: 12 3RF Rx Instructions: administer with spacer albuterol sulfate 2.5 mg /3 mL (0.083 %) solution for nebulization 2.5 mg inhalation Q4-6H PRN (Reason: shortness of breath or wheezing) Qty: 180 4RF mecobalamin (vitamin B12) 1,000 mcg tablet,chewable 1,000 mcg PO DAILY Qty: 90 3RF fluticasone propionate 50 mcg/actuation spray,suspension 2 spray intranasal BEDTIME Qty: 16 3RF Rx Instructions: administer into each nostril calcium carbonate [Antacid (calcium carbonate)] 320 mg calcium (750 mg) tablet,chewable 2,250 mg PO DAILY Qty: 250 3RF cholecalciferol (vitamin D3) 50 mcg (2,000 unit) capsule 50 mcg PO DAILY Qty: 90 3RF pen needle, diabetic [BD Ultra-Fine Mini Pen Needle] 31 gauge x 3/16 needle See Rx Instructions .ROUTE .COMPLEX Qty: 250 6RF Dose Instruction: USE DIRECTED Rx Instructions: USE DIRECTED 4x A DAY TO MONITOR BLOOD SUGARS. (DME) Disabled Parking See Rx Instructions .ROUTE .MEDSUPPLY Qty: 1 0RF Rx Instructions: Patient qualifies for disabled parking as per the attached form. diazepam 5 mg tablet 5 - 10 mg PO ONCE PRN (Reason: anxiety) Qty: 6 0RF triamcinolone acetonide 0.1 % cream 1 applic topical QID Qty: 30 0RF gabapentin 300 mg capsule 300 mg PO BEDTIME Qty: 90 3RF Glucagon Emergency Kit (human) 1 mg recon soln 1 mg SUBCUT Q20M PRN (Reason: Hypoglycemia) amlodipine 5 mg tablet 5 mg PO DAILY Qty: 90 3RF Victoza 2-Bon 0.6 mg/0.1 mL (18 mg/3 mL) pen injector 1.2 mg SUBCUT DAILY (DME) blood-glucose meter [Blood Glucose Monitoring] Kit See Rx Instructions .Route Qty: 1 0RF Rx Instructions: As directed oxycodone-acetaminophen [Percocet] 5-325 mg tablet 1 tab PO Q6H PRN (Reason: pain) Qty: 10 0RF ondansetron 4 mg tablet,disintegrating 4 mg PO Q8H PRN (Reason: nausea and vomiting) Qty: 10 0RF epinephrine [EpiPen 2-Bon] 0.3 MG/0.3 ML auto-injector 0.3 mg IM SEE INSTRUCTIONS PRN (Reason: Allergic reactions) topiramate [Topamax] 50 mg Tablet 200 mg PO DAILY oxycodone 10 mg Tablet 10 mg PO Q4-6H PRN (Reason: Pain) Qty: 50 0RF Pradaxa 150 mg capsule 150 mg PO BID Qty: 60 0RF Referrals: Sheng Gomes MD [Primary Care Provider] -
== END 2022-08-17 07:04 | disposition home or self-care (01) ==
PROVIDERS: Emergency Provider Emergency Medicine; PCP Internal Medicine
DX: R11.10 Vomiting, unspecified (principal); Z79.899 Other long term (current) drug therapy
CPT/HCPCS: 82962; 99281

== ENCOUNTER 2022-08-17 19:10 | Emergency (ER) | payer OTHER, MEDICAID, SELFPAY ==
[2021-03-26 17:21] VITALS: BMI 46.0
[2022-08-17] VITALS (9 sets, daily range): BP systolic 157–206; BP diastolic 67–88; PULSE 81–109; RESP 18; TEMP 36.7; O2SAT 89–98; BMI 41.1
--- NOTE | 2022-08-17 19:17 | DI.RAD.S_ITS ---
PROCEDURE: XR CHEST 1V INDICATIONS: chest pain TECHNIQUE: One view of the chest was acquired. COMPARISON: [facility], , CHEST 2 VIEW, 02/26/2017, 16:33. FINDINGS: Surgical changes and devices: There is prior reverse right shoulder arthroplasty. Lungs and pleura: Lungs are clear. No pleural effusions or pneumothorax. Mediastinum: Mediastinal contours appear normal. Heart size is normal. Bones and chest wall: No suspicious bony lesions. Overlying soft tissues appear unremarkable. IMPRESSION: No acute cardiopulmonary pathology. Dictated by: Miguel Angel Lee M.D. on 08/17/2022 at 19:49 Approved by: Miguel Angel Lee M.D. on 08/17/2022 at 19:49
[2022-08-17] MEDS: SODIUM CHLORIDE 0.9% 1,000 ML 1000 ML IV (19:47)
--- NOTE | 2022-08-17 19:52 | ED_ITS ---
HPI - Nausea/Vomiting/Diarrhea General Chief complaint: Nausea/Vomiting/Diarrhea Stated complaint: N/V Time Seen by Provider: 08/17/22 19:16 Source: patient Mode of arrival: EMS History of Present Illness HPI Narrative: Patient has a 61-year-old female history of diabetes hypertension asthma presenting with nausea vomiting abdominal pain. Actually son evaluated her this morning after she had 1 episode of vomiting while waiting for her friend. She said that she continue to go home and vomit and having increasing lower abdominal pain. No chest pain palpitations or shortness of breath. She was feeling well yesterday. She has had multiple abdominal surgeries no prior history of bowel obstruction. She denies any diarrhea. Related Data Home Medications Medication Instructions Recorded Confirmed glucagon (human recombinant) 1 mg 1 mg SUBCUT Q20M PRN Hypoglycemia 11/25/19 05/03/22 solution for injection (Glucagon Emergency Kit) liraglutide 0.6 mg/0.1 mL (18 mg/3 1.2 mg SUBCUT DAILY 08/13/20 05/03/22 mL) subcutaneous pen injector (Victoza 2-Bon) desonide 0.05 % topical cream 1 applic topical TID PRN Rash, 02/09/21 05/03/22 irritation triamcinolone acetonide 0.1 % 1 applic topical QID PRN Rash, 02/09/21 05/03/22 topical cream skin irritation epinephrine 0.3 mg/0.3 mL 0.3 mg IM SEE INSTRUCTIONS PRN 03/25/21 05/03/22 injection, auto-injector (EpiPen Allergic reactions 2-Bon) topiramate 50 mg tablet (Topamax) 200 mg PO DAILY 03/26/21 05/03/22 Previous Rx's Medication Instructions Recorded insulin lispro 100 unit/mL See Rx Instructions SUBCUT QACHS 09/18/18 subcutaneous pen (Humalog KwikPen PRN DM #3 ea (U-100) Insulin) amlodipine 5 mg tablet 5 mg PO DAILY #90 tabs 09/01/20 insulin glargine 100 unit/mL (3 50 unit (0.5 mL) SUBCUT QDAY #45 mL 12/24/20 mL) subcutaneous pen (Lantus Solostar U-100 Insulin) albuterol sulfate 2.5 mg/3 mL 2.5 mg (3 mL) inhalation Q4-6H PRN 02/09/21 (0.083 %) solution for nebulization shortness of breath or wheezing #180 mL calcium carbonate 320 mg calcium 2,250 mg PO DAILY #250 tabs 02/09/21 (750 mg) chewable tablet (Antacid (calcium carbonate)) cholecalciferol (vitamin D3) 50 50 mcg PO DAILY #90 caps 02/09/21 mcg (2,000 unit) capsule fluticasone propionate 230 2 puff inhalation BID #12 grams 02/09/21 mcg-salmeterol 21 mcg/actuation HFA inhaler (Advair HFA) fluticasone propionate 50 2 spray intranasal BEDTIME #16 02/09/21 mcg/actuation nasal grams spray,suspension mecobalamin (vitamin B12) 1,000 1,000 mcg PO DAILY #90 tabs 02/09/21 mcg chewable tablet ondansetron 4 mg disintegrating 4 mg PO Q8H PRN nausea and 03/20/21 tablet vomiting #10 tabs oxycodone 10 mg tablet 10 mg PO Q4-6H PRN Pain #50 tabs 03/28/21 dabigatran etexilate 150 mg 150 mg PO BID #60 caps 04/05/21 capsule (Pradaxa) blood-glucose meter (Blood Glucose #1 ea 04/16/21 Monitoring kit) lancets 30 gauge ([facility] #200 ea 04/23/21 Lancets) pen needle, diabetic 31 gauge x See Rx Instructions .Route 05/31/2112/29 (BD Ultra-Fine Mini Pen .COMPLEX #250 ea Needle) duloxetine 40 mg capsule,delayed 40 mg PO QDAY #30 caps 10/12/21 release atorvastatin 40 mg tablet 40 mg PO QDAY #90 tabs 10/19/21 omeprazole 40 mg capsule,delayed 40 mg PO BID #180 caps 10/19/21 release galcanezumab-gnlm 120 mg/mL 120 mg SUBCUT QMONTH #1 mL 10/26/21 subcutaneous syringe (Emgality) blood sugar diagnostic (OneTouch #100 ea 11/01/21 Verio test strips) bupropion HCl 150 mg tablet,12 hr 150 mg PO BID #180 tabs 12/09/21 sustained-release losartan 100 mg tablet 100 mg PO DAILY #60 tabs 12/30/21 Disabled Parking #1 ea 01/17/22 diazepam 5 mg tablet 5 - 10 mg PO ONCE PRN anxiety #6 01/17/22 tabs triamcinolone acetonide 0.1 % 1 applic topical QID #30 grams 01/17/22 topical cream gabapentin 300 mg capsule 300 mg PO BEDTIME #90 caps 01/19/22 nortriptyline 50 mg capsule 50 mg PO HS #90 caps 01/25/22 clonidine HCl 0.1 mg tablet 0.1 mg PO BID #180 tabs 02/07/22 ondansetron HCl 4 mg tablet 4 mg PO Q6H PRN nausea and 03/22/22 vomiting #10 tabs oxycodone-acetaminophen 5 mg-325 1 tab PO Q6H PRN pain #10 tabs 06/01/22 mg tablet (Percocet) clonazepam 1 mg tablet 1 mg PO BID #60 tabs 07/18/22 ondansetron 4 mg disintegrating 4 mg PO Q8H PRN nausea and 08/17/22 tablet vomiting #10 tabs Allergies Allergy/AdvReac Type Severity Reaction Status Date / Time aspirin [ASPIRIN] Allergy Severe Breathing Verified 06/01/22 13:55 problem erythromycin base Allergy Severe Throat Verified 06/01/22 13:55 [ERYTHROMYCIN BASE] closes sumatriptan [SUMATRIPTAN] Allergy Severe Anaphylaxis Verified 06/01/22 13:55 meperidine [MEPERIDINE] Allergy Mild Rash Verified 06/01/22 13:55 hydrocodone [From VICODIN] Allergy Unknown Verified 06/01/22 13:55 adhesive tape Allergy Rash Verified 06/01/22 13:55 NSAIDS (Non-Steroidal Allergy Verified 06/01/22 13:55 Anti-Inflamma sweet potato Allergy Anaphylaxis Verified 06/01/22 13:55 ibuprofen [IBUPROFEN] AdvReac Mild Headache, Verified 06/01/22 13:55 vomiting Review of Systems Review of Systems Narrative: GENERAL: Denies chills, fatigue, malaise, fever, sweats, travel HEENT: Denies sinus pain, ear pain, sore throat, difficulty swallowing, neck pain RESPIRATORY: Denies dyspnea, cough, wheezing, hemoptysis, sputum. CARDIOVASCULAR: Denies chest pain, palpitations, orthopnea, edema GASTROINTESTINAL: : Denies dysuria, frequency, incontinence, hematuria, urinary retention, flank pain. MUSCULOSKELETAL: Denies weakness, joint pain, or bony pain SKIN: No rash, no erythema, no pruritus NEUROLOGIC: Denies weakness, dizziness, headache, numbness, change in speech, confusion PSYCHIATRIC: No concerning psychosocial issues. 12 point review of systems is negative except for those stated above and HPI Patient History Medical History Acquired hypothyroidism (01/14/16) Anxiety (05/12/17) Asthma Body mass index (BMI) of 40.1 to 44.9 in adult (01/06/17) Body mass index 45.0-49.9, adult GERD (gastroesophageal reflux disease) (05/27/11) H/O migraine Mixed hyperlipidemia (05/27/11) Moderate persistent asthma without complication (05/27/11) Morbid obesity due to excess calories (01/06/17) Recurrent major depressive disorder, in partial remission (05/12/17) Type 2 diabetes mellitus with diabetic polyneuropathy (08/21/15) Type 2 diabetes mellitus with hyperglycemia, with long-term current use of insulin (04/15/16) Surgical History Fracture S/P total abdominal hysterectomy and bilateral salpingo-oophorectomy Status post cholecystectomy Status post reverse total arthroplasty of right shoulder (~03/2021) Surgical procedure planned Social History marital status: number of children: 3 household members: significant other lives independently: Yes caregiver/support person: No housing: apartment pets and animals: Yes education level: college occupational status: disabled current occupational exposures/hazards: No Previous occupational history: Restuarant liliam/quaker: Religious leisure activities: other Smoking Status: Former smoker Tobacco: How many years used: 10 Smokeless tobacco user: other quit status: quit date established alcohol intake: never substance use type: other Smoking Status: Former smoker alcohol intake frequency: other Substance Use Type: marijuana Exam Initial Vital Signs Initial Vital Signs: Vital Signs Temperature 98.1 F 08/17/22 19:15 Pulse Rate 106 H 08/17/22 19:15 Respiratory Rate 18 08/17/22 19:15 Blood Pressure 199/86 H 08/17/22 19:15 Pulse Oximetry 95 08/17/22 19:15 Oxygen Delivery Method 08/17/22 19:15 GENERAL: Alert pleasant 61-year-old female HEENT: Head atraumatic,EOMI, pupils reactive, face symmetric, moist mucous membranes CARDIOVASCULAR: Regular rate and rhythm without murmurs, rubs or gallops. RESPIRATORY: Breath sounds equal bilaterally, no wheezes rales or rhonchi. ABDOMEN: Soft, obese tender lower abdomen multiple abdominal scars noted no distantion. : No CVA tenderness EXTREMITIES: Normal range of motion, no clubbing or edema. Neurovascularly intact NEUROLOGICAL: Alert and oriented x4.Normal gait and speech. SKIN: Warm, dry, no laceration, no petechiae, no rashes or lesions. Course Orders Ordered: ED Orders 08/17/22 19:17 XR chest 1V Stat 08/17/22 19:29 Complete Blood Count AUTO DIFF Stat Comprehensive Metabolic Panel Stat Ketones (Beta-Hydroxybutyrate) Stat Lactate (Lactic Acid) Stat Lipase Stat Troponin & CK Cardiac Panel Stat 08/17/22 19:30 pH VBG Stat 08/17/22 19:49 EKG-12 Lead Stat 08/17/22 20:05 CT abdomen pelvis w con Stat Discontinued Medications Sodium Chloride (Normal Saline 0.9%) 1,000 mls @ 1,000 mls/hr IV CONT YARIEL Last Infusion: 08/17/22 23:01 Dose: 0 mls/hr Documented By: Admin: 08/17/22 19:47 Dose: 1,000 mls/hr Documented By: MARCK Morphine Sulfate (Morphine 2 Mg/Ml Inj) 2 mg IV NOW ONE Stop: 08/17/22 20:06 Last Admin: 08/17/22 20:18 Dose: 2 mg Documented By: MARCK Ondansetron HCl (Ondansetron 4 Mg/2 Ml Inj) 4 mg IV NOW ONE Stop: 08/17/22 20:06 Last Admin: 08/17/22 20:18 Dose: 4 mg Documented By: MARCK Pantoprazole Sodium (Pantoprazole 40 Mg Vial) 40 mg IV NOW ONE Stop: 08/17/22 20:06 Last Admin: 08/17/22 20:18 Dose: 40 mg Documented By: MARCK Vital Signs Vital signs: Vital Signs - 8 hr 08/17/22 20:34 08/17/22 20:35 08/17/22 20:35 Pulse Rate 109 H 106 H Blood Pressure 206/88 H Pulse Oximetry 97 98 08/17/22 21:00 08/17/22 21:01 08/17/22 21:01 Pulse Rate 98 H 105 H Blood Pressure 164/67 H Pulse Oximetry 98 96 08/17/22 21:30 08/17/22 21:30 08/17/22 22:00 Pulse Rate 103 H Blood Pressure 162/80 H 157/76 H Pulse Oximetry 96 08/17/22 22:00 08/17/22 22:30 08/17/22 22:30 Pulse Rate 81 102 H Blood Pressure 168/73 H Pulse Oximetry 98 89 L 08/17/22 23:00 08/17/22 23:00 Pulse Rate 94 H Blood Pressure 173/77 H Pulse Oximetry 98 MDM - Nausea/Vomiting/Diarrhea Differential Diagnosis Differential diagnosis: Likely food poisoning, gastroenteritis and other (DKA, SBO, CAD) Lab Data Result diagrams: 08/17/22 19:29 08/17/22 19:29 Labs: Lab Results 08/17/22 08/17/22 08/17/22 Range/Units 19:29 19:29 19:29 WBC 9.6 (4.5-11.0) X10^3/uL RBC 4.70 (4.0-5.2) X10^6/uL Hgb 14.1 (12.0-16.0) g/dL Hct 42.0 (36-46) % MCV 89.2 (80-100) fL MCH 30.1 (26-34) PG MCHC 33.7 (30-36) % RDW 14.5 (11.6-14.8) % Plt Count 299 (150-400) X10^3/uL Neut % (Auto) 72.3 (50-75) % Lymph % (Auto) 20.9 L (25-40) % Weber % (Auto) 5.1 (3-14) % Eos % (Auto) 0.5 L (2-4) % Baso % (Auto) 1.2 (0-2) % Neut # (Auto) 6900 (2067-0788) /uL Lymph # (Auto) 2000 (6407-8243) /uL Weber # (Auto) 500 (0-900) /uL Eos # (Auto) 0 (0-450) /uL Baso # (Auto) 100 (0-100) /uL VBG pH (7.33-7.43) Sodium 139 (137-145) mmol/L Potassium 4.0 (3.4-5.1) mmol/L Chloride 103 (98-107) mmol/L Carbon Dioxide 28 (22-32) mmol/L BUN 18 H (7-17) mg/dL Creatinine 0.78 (0.52-1.04) mg/dL Estimated GFR > 60 (>60) mL/min BUN/Creatinine Ratio 23.1 H (6-22) Glucose 124 H (80-110) mg/dL Lactate 1.7 (0.7-2.1) mmol/L Calcium 9.3 (8.4-10.2) mg/dL Total Bilirubin 0.9 (0.2-1.3) mg/dL AST 55 H (14-36) IU/L ALT 52 H (<35) IU/L Alkaline Phosphatase 126 (38-126) U/L Total Creatine Kinase 133 (30-135) U/L CK-MB (CK-2) 2.08 (<2.37) ng/mL CK-MB (CK-2) Rel Index 1.6 (1.5-5.0) % Troponin I < 0.012 (0.01-0.034) ng/mL Total Protein 8.1 (6.3-8.2) g/dL Albumin 4.2 (3.5-5.0) g/dL Globulin 3.9 (1.7-4.1) g/dL Albumin/Globulin Ratio 1.1 (1.0-2.8) Lipase 108 (23-300) U/L Ketones 0.51 H (<0.27) mmol/L 08/17/22 Range/Units 19:30 WBC (4.5-11.0) X10^3/uL RBC (4.0-5.2) X10^6/uL Hgb (12.0-16.0) g/dL Hct (36-46) % MCV (80-100) fL MCH (26-34) PG MCHC (30-36) % RDW (11.6-14.8) % Plt Count (150-400) X10^3/uL Neut % (Auto) (50-75) % Lymph % (Auto) (25-40) % Weber % (Auto) (3-14) % Eos % (Auto) (2-4) % Baso % (Auto) (0-2) % Neut # (Auto) (1591-6341) /uL Lymph # (Auto) (5313-6280) /uL Weber # (Auto) (0-900) /uL Eos # (Auto) (0-450) /uL Baso # (Auto) (0-100) /uL VBG pH 7.57 H (7.33-7.43) Sodium (137-145) mmol/L Potassium (3.4-5.1) mmol/L Chloride (98-107) mmol/L Carbon Dioxide (22-32) mmol/L BUN (7-17) mg/dL Creatinine (0.52-1.04) mg/dL Estimated GFR (>60) mL/min BUN/Creatinine Ratio (6-22) Glucose (80-110) mg/dL Lactate (0.7-2.1) mmol/L Calcium (8.4-10.2) mg/dL Total Bilirubin (0.2-1.3) mg/dL AST (14-36) IU/L ALT (<35) IU/L Alkaline Phosphatase (38-126) U/L Total Creatine Kinase (30-135) U/L CK-MB (CK-2) (<2.37) ng/mL CK-MB (CK-2) Rel Index (1.5-5.0) % Troponin I (0.01-0.034) ng/mL Total Protein (6.3-8.2) g/dL Albumin (3.5-5.0) g/dL Globulin (1.7-4.1) g/dL Albumin/Globulin Ratio (1.0-2.8) Lipase (23-300) U/L Ketones (<0.27) mmol/L Imaging Data CT scan - abdomen/pelvis: Radiologist's Impression: [address] [address] [address] Scan Report Signed Patient: Jessie Knapp MR#: [id number] : 1960 Acct:[id number] Age/Sex: 61 / F Date of Service: 08/17/22 Loc: ED Accession Number: [id number] ?? Procedure: CT abdomen pelvis w con Ordering Provider: Stephie Angel D.O. PROCEDURE:? CT ABDOMEN PELVIS W CON ? INDICATIONS:? ab pain vomiting ? TECHNIQUE:? After the administration of IV contrast, axial sections were acquired from the lung bases to the pubic symphysis.? Coronal and sagittal reformats were performed.? For radiation dose reduction, the following was used:? automated exposure control, adjustment of mA and/or kV according to patient size. ? COMPARISON:? None. ? FINDINGS:? Image quality:? Excellent.? ? Lung bases:? There is mild scarring medially in the right lower lobe.? ? Heart:? Heart is normal in size. ? ? ABDOMEN: Liver:? There is diffuse hypoattenuation of the liver consistent with fatty infiltration. Gallbladder:? Surgically absent. Biliary ducts:? No biliary ductal dilatation.? ? Pancreas:? Unremarkable.? ? Spleen:? Normal in size.? There is an oval calcification in the renal hilum measuring up to 1.1 cm suggestive of a calcified splenic artery aneurysm. ? Adrenal Glands:? No adrenal nodules.? ? Kidneys and Ureters:? No hydronephrosis.? ? ? Stomach and Bowel:? Stomach, small bowel loops, and colon are normal in caliber and wall thickness.? The appendix is normal in appearance.? There are a few colonic diverticula without acute diverticulitis.? Peritoneum:? No abnormal intraperitoneal fluid.? No free air.? ? Ventral Wall: ? No hernia.? Abdominal Nodes:? No retroperitoneal or mesenteric adenopathy by size criteria.? Vessels:? Aorta and inferior vena cava are normal in size.? ? PELVIS: Pelvic Organs:? The uterus is surgically absent.? ? Bladder:? Unremarkable.? ? Pelvic Nodes: No enlarged lymph nodes.? Miscellaneous: No inguinal hernias are seen. ? ? ? Bones:? Visualized osseous structures demonstrate no suspicious focal lesions. ? IMPRESSION:? ? 1. No definite acute intra-abdominal abnormality.? Specifically, no evidence of bowel obstruction. ? 2. Hepatic steatosis. ? 3. Probable small peripherally calcified splenic artery aneurysm in the splenic hilum.? ? ? Dictated by: Saul Mann M.D. on 08/17/2022 at 21:37 ? ? Chest x-ray: Radiologist's Impression: XRay Report Signed Patient: Jessie Knapp MR#: [id number] : 1960 Acct:[id number] Age/Sex: 61 / F Date of Service: 08/17/22 Loc: ED Accession Number: [id number] ?? Procedure: XR chest 1V Ordering Provider: Stephie Angel D.O. PROCEDURE:? XR CHEST 1V ? INDICATIONS:? chest pain ? TECHNIQUE:? One view of the chest was acquired.? ? COMPARISON:? [facility], CHEST 2 VIEW, 02/26/2017, 16:33. ? FINDINGS:? ? Surgical changes and devices:? There is prior reverse right shoulder arthroplasty. ? Lungs and pleura:? Lungs are clear.? No pleural effusions or pneumothorax.? ? Mediastinum:? Mediastinal contours appear normal.? Heart size is normal.? ? Bones and chest wall:? No suspicious bony lesions.? Overlying soft tissues appear unremarkable.? ? IMPRESSION:? No acute cardiopulmonary pathology. ? ? Dictated by: Miguel Angel Lee M.D. on 08/17/2022 at 19:49 ? ECG Data Interpretation: Normal sinus rhythm rate 89 MS interval 134 QRS [address] changes or T- wave inversions MDM Narrative Medical decision making narrative: The patient has been having vomiting all day. No evidence of DKA. Blood work is overall reassuring. CT does not show any cause of vomiting. There is no evidence of bowel obstruction or other etiologies. She overall is feeling better after morphine she is tolerating oral fluids. She actually has Zofran at home. Discharge Plan Departure Patient Disposition: Home Clinical Impression: Vomiting Instructions: DI for Vomiting -- Adult Activity Restrictions/Additional Instructions: 1) You have been diagnosed with vomiting At this time blood work and CT scan are reassuring. Increase fluid intake. 2) What to do: Drink frequent but small amounts of fluids. I recommend Gatorade or a Gatorade-like product, as it has small amounts of sugar and salts that improve fluid retention. 3) Take medications as directed 4) Follow up with your primary care provider in 2-3 days 5) Return to ER if you should have any new or worsening symptoms such as, unable to hold down fluids despite use of anti-nausea medications and the small volume oral rehydration strategy. Prescriptions: No Action insulin lispro [Humalog KwikPen Insulin] 100 unit/mL insulin pen See Rx Instructions SUBCUT QACHS PRN (Reason: DM) Qty: 3 6RF Dose Instruction: Use before meals. If carbs are taken use 5units of insulin. Or as directed by doctor. SUBCUT QACHS PRN; Use before meals. If carbs are taken use 5units of insulin. Or as directed by doctor. Rx Instructions: Use before meals. If carbs are taken use 5units of insulin. Or as directed by doctor. Lantus Solostar U-100 Insulin 100 unit/mL (3 mL) insulin pen 50 unit subcut QDAY Qty: 45 11RF (DME) lancets [OneTouch Delica Lancets] 30 gauge misc See Rx Instructions .Route Qty: 200 6RF Rx Instructions: Use to check blood sugars 4x a day duloxetine 40 mg capsule,delayed release(DR/EC) 40 mg PO QDAY Qty: 30 11RF omeprazole 40 mg capsule,delayed release(DR/EC) 40 mg PO BID Qty: 180 3RF atorvastatin 40 mg tablet 40 mg PO QDAY Qty: 90 3RF Emgality Syringe 120 mg/mL syringe 120 mg SUBCUT QMONTH Qty: 1 12RF (DME) OneTouch Verio test strips Strip See Rx Instructions .Route Qty: 100 6RF Rx Instructions: Use to check blood sugars 4x a day bupropion HCl 150 mg tablet sustained-release 12 hr 150 mg PO BID Qty: 180 3RF losartan 100 mg tablet 100 mg PO DAILY Qty: 60 5RF nortriptyline 50 mg capsule 50 mg PO HS Qty: 90 3RF clonidine HCl 0.1 mg tablet 0.1 mg PO BID Qty: 180 3RF ondansetron HCl 4 mg tablet 4 mg PO Q6H PRN (Reason: nausea and vomiting) Qty: 10 2RF clonazepam 1 mg tablet 1 mg PO BID Qty: 60 3RF desonide 0.05 % cream 1 applic TOP TID PRN (Reason: Rash, irritation) triamcinolone acetonide 0.1 % cream 1 applic TOP QID PRN (Reason: Rash, skin irritation) Advair HFA 230-21 mcg/actuation HFA aerosol inhaler 2 puff inhalation BID Qty: 12 3RF Rx Instructions: administer with spacer albuterol sulfate 2.5 mg /3 mL (0.083 %) solution for nebulization 2.5 mg inhalation Q4-6H PRN (Reason: shortness of breath or wheezing) Qty: 180 4RF mecobalamin (vitamin B12) 1,000 mcg tablet,chewable 1,000 mcg PO DAILY Qty: 90 3RF fluticasone propionate 50 mcg/actuation spray,suspension 2 spray intranasal BEDTIME Qty: 16 3RF Rx Instructions: administer into each nostril calcium carbonate [Antacid (calcium carbonate)] 320 mg calcium (750 mg) tablet,chewable 2,250 mg PO DAILY Qty: 250 3RF cholecalciferol (vitamin D3) 50 mcg (2,000 unit) capsule 50 mcg PO DAILY Qty: 90 3RF pen needle, diabetic [BD Ultra-Fine Mini Pen Needle] 31 gauge x 3/16 needle See Rx Instructions .ROUTE .COMPLEX Qty: 250 6RF Dose Instruction: USE DIRECTED Rx Instructions: USE DIRECTED 4x A DAY TO MONITOR BLOOD SUGARS. (DME) Disabled Parking See Rx Instructions .ROUTE .MEDSUPPLY Qty: 1 0RF Rx Instructions: Patient qualifies for disabled parking as per the attached form. diazepam 5 mg tablet 5 - 10 mg PO ONCE PRN (Reason: anxiety) Qty: 6 0RF triamcinolone acetonide 0.1 % cream 1 applic topical QID Qty: 30 0RF gabapentin 300 mg capsule 300 mg PO BEDTIME Qty: 90 3RF Glucagon Emergency Kit (human) 1 mg recon soln 1 mg SUBCUT Q20M PRN (Reason: Hypoglycemia) amlodipine 5 mg tablet 5 mg PO DAILY Qty: 90 3RF Victoza 2-Bon 0.6 mg/0.1 mL (18 mg/3 mL) pen injector 1.2 mg SUBCUT DAILY (DME) blood-glucose meter [Blood Glucose Monitoring] Kit See Rx Instructions .Route Qty: 1 0RF Rx Instructions: As directed oxycodone-acetaminophen [Percocet] 5-325 mg tablet 1 tab PO Q6H PRN (Reason: pain) Qty: 10 0RF ondansetron 4 mg tablet,disintegrating 4 mg PO Q8H PRN (Reason: nausea and vomiting) Qty: 10 0RF ondansetron 4 mg tablet,disintegrating 4 mg PO Q8H PRN (Reason: nausea and vomiting) Qty: 10 0RF epinephrine [EpiPen 2-Bon] 0.3 MG/0.3 ML auto-injector 0.3 mg IM SEE INSTRUCTIONS PRN (Reason: Allergic reactions) topiramate [Topamax] 50 mg Tablet 200 mg PO DAILY oxycodone 10 mg Tablet 10 mg PO Q4-6H PRN (Reason: Pain) Qty: 50 0RF Pradaxa 150 mg capsule 150 mg PO BID Qty: 60 0RF Referrals: Sheng Gomes MD [Primary Care Provider] - Visit Report Forms: Patient Portal/API
[2022-08-17 19:57] LABS: Add Manual Diff / Slide Review NO; Basophils Absolute Auto 100 /uL (0-100); Basophils Percent Auto 1.2 % (0-2); Eosinophils Absolute Auto 0 /uL (0-450); Eosinophils Percent Auto 0.5 % (2-4); Hemoglobin 14.1 g/dL (12.0-16.0); Lymphocytes Absolute Auto 2000 /uL (1100-4500); Lymphocytes Percent Auto 20.9 % (25-40); Mean Corpuscular HGB Conc 33.7 % (30-36); Mean Corpuscular Hemoglobin 30.1 PG (26-34); Mean Corpuscular Volume 89.2 fL (80-100); Monocytes Absolute Auto 500 /uL (0-900); Monocytes Percent Auto 5.1 % (3-14); Neutrophils Absolute Auto 6900 /uL (1500-7000); Neutrophils Percent Auto 72.3 % (50-75); Platelet Count 299 X10^3/uL (150-400); Red Cell Distribution Width 14.5 % (11.6-14.8); White Blood Cell Count 9.6 X10^3/uL (4.5-11.0)
[2022-08-17 20:02] LABS: HEMOLYSIS 29 (0-50)
--- NOTE | 2022-08-17 20:05 | DI.CT.S_ITS ---
PROCEDURE: CT ABDOMEN PELVIS W CON INDICATIONS: ab pain vomiting TECHNIQUE: After the administration of IV contrast, axial sections were acquired from the lung bases to the pubic symphysis. Coronal and sagittal reformats were performed. For radiation dose reduction, the following was used: automated exposure control, adjustment of mA and/or kV according to patient size. COMPARISON: None. FINDINGS: Image quality: Excellent. Lung bases: There is mild scarring medially in the right lower lobe. Heart: Heart is normal in size. ABDOMEN: Liver: There is diffuse hypoattenuation of the liver consistent with fatty infiltration. Gallbladder: Surgically absent. Biliary ducts: No biliary ductal dilatation. Pancreas: Unremarkable. Spleen: Normal in size. There is an oval calcification in the renal hilum measuring up to 1.1 cm suggestive of a calcified splenic artery aneurysm. Adrenal Glands: No adrenal nodules. Kidneys and Ureters: No hydronephrosis. Stomach and Bowel: Stomach, small bowel loops, and colon are normal in caliber and wall thickness. The appendix is normal in appearance. There are a few colonic diverticula without acute diverticulitis. Peritoneum: No abnormal intraperitoneal fluid. No free air. Ventral Wall: No hernia. Abdominal Nodes: No retroperitoneal or mesenteric adenopathy by size criteria. Vessels: Aorta and inferior vena cava are normal in size. PELVIS: Pelvic Organs: The uterus is surgically absent. Bladder: Unremarkable. Pelvic Nodes: No enlarged lymph nodes. Miscellaneous: No inguinal hernias are seen. Bones: Visualized osseous structures demonstrate no suspicious focal lesions. IMPRESSION: 1. No definite acute intra-abdominal abnormality. Specifically, no evidence of bowel obstruction. 2. Hepatic steatosis. 3. Probable small peripherally calcified splenic artery aneurysm in the splenic hilum. Dictated by: Saul Mann M.D. on 08/17/2022 at 21:37 Approved by: Saul Mann M.D. on 08/17/2022 at 21:58
[2022-08-17 20:06] LABS: Lactate (Lactic Acid) 1.7 mmol/L (0.7-2.1)
[2022-08-17 20:07] LABS: Alanine Aminotransferase 52 IU/L (<35); Albumin 4.2 g/dL (3.5-5.0); Albumin Globulin Ratio 1.1 (1.0-2.8); Alkaline Phosphatase 126 U/L (38-126); Aspartate Aminotransferase 55 IU/L (14-36); BUN Creatinine Ratio 23.1 (6-22); Bilirubin Total 0.9 mg/dL (0.2-1.3); Blood Urea Nitrogen 18 mg/dL (7-17); Calcium 9.3 mg/dL (8.4-10.2); Carbon Dioxide 28 mmol/L (22-32); Chloride 103 mmol/L (98-107); Creatine Kinase 133 U/L (30-135); Estimated Glomerular Filt Rate > 60 mL/min (>60); Globulin 3.9 g/dL (1.7-4.1); Glucose 124 mg/dL (80-110); Lipase 108 U/L (23-300); Sodium 139 mmol/L (137-145); Total Protein 8.1 g/dL (6.3-8.2)
[2022-08-17 20:14] LABS: pH VBG 7.57 (7.33-7.43)
[2022-08-17] MEDS: MORPHINE 2 MG/ML INJ IV (20:18)
[2022-08-17] MEDS: ONDANSETRON 4 MG/2 ML INJ IV (20:18)
[2022-08-17] MEDS: PANTOPRAZOLE 40 MG VIAL IV (20:18)
[2022-08-17 20:19] LABS: Troponin I < 0.012 ng/mL (0.01-0.034)
[2022-08-17 20:23] LABS: CKMB % Relative Index 1.6 % (1.5-5.0); Creatine Kinase MB 2.08 ng/mL (<2.37)
[2022-08-17 20:40] LABS: Ketones (Beta-Hydroxybutyrate) 0.51 mmol/L (<0.27)
--- NOTE | 2022-08-17 22:40 | PC.NURSE ---
pt tolerated apple juice well
== END 2022-08-17 23:08 | disposition home or self-care (01) ==
PROVIDERS: Emergency Provider Emergency Medicine; PCP Internal Medicine
DX: R11.2 Nausea with vomiting, unspecified (principal); R07.9 Chest pain, unspecified; Z79.899 Other long term (current) drug therapy
CPT/HCPCS: 36415; 71045; 74177; 80053; 82009; 82550; 82553; 82962; 83605; 83690; 83986; 84484; 85025; 93005; 96361; 96374; 96375; 99281; 99284; C9113; J2270; J2405; Q9967

== ENCOUNTER → 2022-09-12 16:59 | Outpatient (CLI) | payer OTHER, MEDICAID, SELFPAY ==
[2021-03-26 17:21] VITALS: BMI 46.0
--- NOTE | 2022-09-12 17:00 | DI.RAD.S_ITS ---
PROCEDURE: XR HAND LT MIN 3V INDICATIONS: sprain left thumb TECHNIQUE: 3 views of the hand(s) acquired. COMPARISON: None. FINDINGS: Bones: There is a small cortical lucency identified on the distal aspect of the 1st metacarpal, seen only on one view. Carpal bones are normally aligned. No suspicious bony lesions. Soft tissues: No suspicious soft tissue calcifications. IMPRESSION: Small lucency at the distal 1st metacarpal seen only on one view. This could be artifactual. However, recommend correlation point tenderness and if concern persists for fracture, short interval imaging follow-up is recommended in 7-10 days. Dictated by: Glenys Samano M.D. on 09/13/2022 at 11:52 Approved by: Glenys Samano M.D. on 09/13/2022 at 11:53
== END ==
PROVIDERS: PCP Internal Medicine; Referring Provider Internal Medicine; Visit Provider Internal Medicine
DX: S63.602A Unspecified sprain of left thumb, initial encounter (principal); X58.XXXA Exposure to other specified factors, initial encounter
CPT/HCPCS: 73130

== ENCOUNTER → 2022-11-09 09:44 | Outpatient (CLI) | payer OTHER, MEDICAID, SELFPAY ==
[2021-03-26 17:21] VITALS: BMI 46.0
[2022-11-09 10:57] LABS: COVID19 -Nasal RAPID Negative (Negative)
== END ==
PROVIDERS: PCP Internal Medicine; Visit Provider Surgery
DX: Z01.812 Encounter for preprocedural laboratory examination (principal); Z20.822 Contact with and (suspected) exposure to COVID-19
CPT/HCPCS: 87635; C9803

== ENCOUNTER 2022-11-10 06:25 | Day surgery (SDC) | payer OTHER, MEDICAID, SELFPAY ==
[2021-03-26 17:21] VITALS: BMI 46.0
[2022-11-10] MEDS: LACTATED RINGERS 1,000 ML 42 ML IV (07:07)
[2022-11-10 07:26] VITALS: BP 181/82; PULSE 122; RESP 18; TEMP 36.1; O2SAT 96; BMI 44.3
[2022-11-10 07:56] VITALS: BP 155/67; PULSE 104; RESP 16; O2SAT 97
--- NOTE | 2022-11-10 07:56 | PM.HP.1 ---
History of Present Illness History of Present Illness Date Patient Seen: 11/10/22 Time Patient Seen: 07:57 Chief complaint: Colonoscopy Narrative: Jessie is a 61-year-old obese woman who is here for colonoscopy. Her last colonoscopy was 10 years ago and she believes no polyps were found. She has no known family history of colon cancer. She has multiple medical problems and although Pradaxa was listed as 1 of her medications she is not aware that she is taking that medication. Patient History Medical History Acquired hypothyroidism (01/14/16) Anxiety (05/12/17) Asthma Body mass index (BMI) of 40.1 to 44.9 in adult (01/06/17) Body mass index 45.0-49.9, adult GERD (gastroesophageal reflux disease) (05/27/11) H/O migraine Mixed hyperlipidemia (05/27/11) Moderate persistent asthma without complication (05/27/11) Morbid obesity due to excess calories (01/06/17) Recurrent major depressive disorder, in partial remission (05/12/17) Type 2 diabetes mellitus with diabetic polyneuropathy (08/21/15) Type 2 diabetes mellitus with hyperglycemia, with long-term current use of insulin (04/15/16) Surgical History Fracture S/P total abdominal hysterectomy and bilateral salpingo-oophorectomy Status post cholecystectomy Status post reverse total arthroplasty of right shoulder (~03/2021) Surgical procedure planned Family & Social History Social History: household members spouse lives independently Yes caregiver/support person No Tobacco & Substance use: Smoking Status Former smoker alcohol intake never alcohol intake frequency other Substance Use Type marijuana Meds Home Medications and Allergies Home Medications Medication Instructions Recorded Confirmed Type glucagon (human recombinant) 1 mg 1 mg SUBCUT Q20M PRN Hypoglycemia 11/25/19 11/10/22 History solution for injection (Glucagon Emergency Kit) liraglutide 0.6 mg/0.1 mL (18 mg/3 1.2 mg SUBCUT DAILY 08/13/20 11/10/22 History mL) subcutaneous pen injector ([email or web address] 2-Bon) amlodipine 5 mg tablet 5 mg PO DAILY #90 tabs 09/01/20 11/10/22 Rx albuterol sulfate 2.5 mg/3 mL 2.5 mg (3 mL) inhalation Q4-6H PRN 02/09/21 11/10/22 Rx (0.083 %) solution for nebulization shortness of breath or wheezing #180 mL calcium carbonate 320 mg calcium 2,250 mg PO DAILY #250 tabs 02/09/21 11/10/22 Rx (750 mg) chewable tablet (Antacid (calcium carbonate)) cholecalciferol (vitamin D3) 50 50 mcg PO DAILY #90 caps 02/09/21 11/10/22 Rx mcg (2,000 unit) capsule desonide 0.05 % topical cream 1 applic topical TID PRN Rash, 02/09/21 11/10/22 History irritation fluticasone propionate 230 2 puff inhalation BID #12 grams 02/09/21 11/10/22 Rx mcg-salmeterol 21 mcg/actuation HFA inhaler (Advair HFA) fluticasone propionate 50 2 spray intranasal BEDTIME #16 02/09/21 11/10/22 Rx mcg/actuation nasal grams spray,suspension mecobalamin (vitamin B12) 1,000 1,000 mcg PO DAILY #90 tabs 02/09/21 11/10/22 Rx mcg chewable tablet triamcinolone acetonide 0.1 % 1 applic topical QID PRN Rash, 02/09/21 11/10/22 History topical cream skin irritation epinephrine 0.3 mg/0.3 mL 0.3 mg IM SEE INSTRUCTIONS PRN 03/25/21 11/10/22 History injection, auto-injector (EpiPen Allergic reactions 2-Bon) topiramate 50 mg tablet (Topamax) 200 mg PO DAILY 03/26/21 11/10/22 History dabigatran etexilate 150 mg 150 mg PO BID #60 caps 04/05/21 11/10/22 Rx capsule (Pradaxa) omeprazole 40 mg capsule,delayed 40 mg PO BID #180 caps 10/19/21 11/10/22 Rx release bupropion HCl 150 mg tablet,12 hr 150 mg PO BID #180 tabs 12/09/21 11/10/22 Rx sustained-release losartan 100 mg tablet 100 mg PO DAILY #60 tabs 12/30/21 11/10/22 Rx diazepam 5 mg tablet 5 - 10 mg PO ONCE PRN anxiety #6 01/17/22 11/10/22 Rx tabs triamcinolone acetonide 0.1 % 1 applic topical QID #30 grams 01/17/22 11/10/22 Rx topical cream gabapentin 300 mg capsule 300 mg PO BEDTIME #90 caps 01/19/22 11/10/22 Rx nortriptyline 50 mg capsule 50 mg PO HS #90 caps 01/25/22 11/10/22 Rx clonidine HCl 0.1 mg tablet 0.1 mg PO BID #180 tabs 02/07/22 11/10/22 Rx clonazepam 1 mg tablet 1 mg PO BID #60 tabs 07/18/22 11/10/22 Rx ondansetron 4 mg disintegrating 4 mg PO Q8H PRN nausea and 08/17/22 11/10/22 Rx tablet vomiting #10 tabs empagliflozin 25 mg tablet 25 mg PO DAILY 08/29/22 11/10/22 History (Jardiance) fluconazole 150 mg tablet 150 mg PO ONCE 08/29/22 11/10/22 History glucagon 3 mg/actuation nasal 3 mg intranasal ONCE 08/29/22 11/10/22 History spray (Baqsimi) pioglitazone 30 mg tablet 30 mg PO DAILY 08/29/22 11/10/22 History galcanezumab-gnlm 120 mg/mL See Rx Instructions .Route 10/07/22 11/10/22 Rx subcutaneous syringe (Emgality) .COMPLEX #1 mL atorvastatin 40 mg tablet 40 mg PO QDAY #90 tabs 11/01/22 11/10/22 Rx duloxetine 40 mg capsule,delayed See Rx Instructions .Route 11/04/22 11/10/22 Rx release .COMPLEX #30 caps insulin glargine 100 unit/mL (3 58 unit SUBCUT QDAY 11/10/22 11/10/22 History mL) subcutaneous pen (Lantus Solostar U-100 Insulin) Allergies Allergy/AdvReac Type Severity Reaction Status Date / Time aspirin [ASPIRIN] Allergy Severe Breathing Verified 11/10/22 07:13 problem erythromycin base Allergy Severe Throat Verified 11/10/22 07:13 [ERYTHROMYCIN BASE] closes sumatriptan [SUMATRIPTAN] Allergy Severe Anaphylaxis Verified 11/10/22 07:13 meperidine [MEPERIDINE] Allergy Mild Rash Verified 11/10/22 07:13 hydrocodone [From VICODIN] Allergy Unknown Verified 11/10/22 07:13 adhesive tape Allergy Rash Verified 11/10/22 07:13 NSAIDS (Non-Steroidal Allergy Verified 11/10/22 07:13 Anti-Inflamma sweet potato Allergy Anaphylaxis Verified 11/10/22 07:13 ibuprofen [IBUPROFEN] AdvReac Mild Headache, Verified 11/10/22 07:13 vomiting Exam Vital Signs (past 8 hours): - 11/10/22 07:26 Temperature 96.9 F L Pulse Rate 122 H Respiratory Rate 18 Blood Pressure 181/82 H Pulse Oximetry 96 Oxygen Delivery Method Room Air Oxygen Delivery Method Room Air Const Nutritional Appearance: obese Assessment & Plan Assessment and plan (1) Colon cancer screening: Status: Acute Plan 61-year-old woman here for colonoscopy. Reviewed the risks and benefits and she would like to proceed. Time Spent With Patient Critical Care time: I spent a total of [] minutes of critical care time on this patient's care today; this time is exclusive of procedural time.
[2022-11-10 08:28] VITALS: BP 125/69; PULSE 108; RESP 12; TEMP 36.2; O2SAT 95
--- NOTE | 2022-11-10 08:28 | PM.OP.COLON ---
Operative Date/Time/Diagnoses Date of procedure: 11/10/22 Time of procedure: 08:28 Pre-op diagnosis: Colon cancer screening Post-op diagnosis: same Procedure & Clinicians Study performed: Colonoscopy Same procedure as scheduled: Yes Surgeon: Cayden Zhang Procedure Notes Procedure in detail: Surgeon: Cayden Zhang MD Anesthesia: Dr. Foley Procedure: The patient was brought to the endoscopy suite, placed in left lateral decubitus position. The patient was connected to monitoring devices. A time-out was performed. Sedation was administered. Once the patient was adequately sedated, a digital rectal exam was performed and was normal. The scope was then inserted and advanced to the cecum where the appendiceal orifice was identified and photographed. The scope was then slowly withdrawn over greater than 6 minutes. The mucosa was thoroughly inspected. No polyps or other lesions were noted. The scope was retroflexed in the rectum. No abnormalities were noted. The scope was straightened and removed. The patient was awakened and brought to recovery. Scope withdrawal time: 12 minutes Sedation time: 21 minutes EBL: 0 Findings: Normal colon Post-procedure Recommendations: Colonoscopy in 10 years Disposition: PACU
[2022-11-10 08:33] VITALS: BP 139/70; PULSE 109; RESP 12; O2SAT 95
[2022-11-10 08:38] VITALS: BP 175/88; PULSE 107; RESP 12; O2SAT 96
[2022-11-10 08:49] VITALS: BP 159/72; PULSE 107; RESP 12; TEMP 36.6; O2SAT 97
== END 2022-11-10 09:00 | disposition home or self-care (01) ==
PROVIDERS: PCP Internal Medicine; Referring Provider Surgery; Visit Provider Surgery
PROC: 0DJD8ZZ Inspection of Lower Intestinal Tract, Via Natural or Artificial Opening Endoscopic (ICD-10-PCS; CPT 45378; principal; 2022-11-10 07:45)
DX: Z12.11 Encounter for screening for malignant neoplasm of colon (principal)
CPT/HCPCS: 45378; J2704; J3010

== ENCOUNTER → 2023-05-05 14:36 | Outpatient (CLI) | payer OTHER, MEDICAID, SELFPAY ==
[2021-03-26 17:21] VITALS: BMI 46.0
[2023-05-05 16:23] LABS: Alanine Aminotransferase 23 IU/L (<35); Albumin Globulin Ratio 1.1 (1.0-2.8); Alkaline Phosphatase 107 U/L (38-126); Aspartate Aminotransferase 23 IU/L (14-36); BUN Creatinine Ratio 16.7 (6-22); Bilirubin Total 0.7 mg/dL (0.2-1.3); Blood Urea Nitrogen 15 mg/dL (7-17); Calcium 9.4 mg/dL (8.4-10.2); Carbon Dioxide 30 mmol/L (22-32); Chloride 101 mmol/L (98-107); Cholesterol 164 mg/dL (140-199); Estimated Glomerular Filt Rate > 60 mL/min (>60); Globulin 3.7 g/dL (1.7-4.1); Glucose 154 mg/dL (80-110); HDL Cholesterol 42 mg/dL (40-60); HEMOLYSIS < 15 (0-50); LDL Cholesterol Calculated 88 mg/dL (<100); Potassium 4.4 mmol/L (3.4-5.1); Sodium 140 mmol/L (137-145); Total Protein 7.7 g/dL (6.3-8.2); Triglycerides 169 mg/dL (35-150)
[2023-05-05 16:40] LABS: Free T4, Direct Thyroxine 0.76 ng/dL (0.78-2.19)
[2023-05-05 16:54] LABS: Thyroid Stimulating Hormone 4.49 uIU/mL (0.47-4.68)
[2023-05-05 18:58] LABS: Creatinine Urine Random 78.4 mg/dL
[2023-05-05 19:15] LABS: Microalbumin Urine Random < 0.6 mg/dL (0-1.6)
[2023-05-06 08:47] LABS: Labcorp Hemoglobin (Hb) A1c 6.7 % (4.8-5.6)
== END ==
PROVIDERS: PCP Internal Medicine; Referring Provider Student in an Organized Health Care Education/Training Program; Visit Provider Student in an Organized Health Care Education/Training Program
DX: E11.65 Type 2 diabetes mellitus with hyperglycemia (principal); E11.49 Type 2 diabetes mellitus with other diabetic neurological complication
CPT/HCPCS: 36415; 80053; 80061; 82043; 82570; 83036; 84439; 84443

== ENCOUNTER → 2023-05-16 09:36 | Outpatient (CLI) | payer OTHER, MEDICAID, SELFPAY ==
[2021-03-26 17:21] VITALS: BMI 46.0
--- NOTE | 2023-05-16 09:38 | DI.RAD.S_ITS ---
PROCEDURE: XR SHOULDER RT MIN 2V INDICATIONS: Shoulder Pain TECHNIQUE: 2 views of the shoulder were acquired. COMPARISON: [facility], CR, XR SHOULDER RT MIN 2V, 03/26/2021, 15:16. FINDINGS: Bones: No fractures or dislocations. No suspicious bony lesions. Visualized ribs appear intact. Stable appearance of right shoulder arthroplasty. Hardware is intact without hardware fracture or periprosthetic lucency to suggest loosening. Healing proximal humeral fracture is present. Stable alignment. Soft tissues: No suspicious soft tissue calcifications. IMPRESSION: Stable alignment and appearance of right humeral arthroplasty. Dictated by: Glenys Samano M.D. on 05/16/2023 at 12:42 Approved by: Glenys Samano M.D. on 05/16/2023 at 12:42
== END ==
PROVIDERS: PCP Internal Medicine; Referring Provider Internal Medicine; Visit Provider Internal Medicine
DX: M25.511 Pain in right shoulder (principal); Z96.611 Presence of right artificial shoulder joint
CPT/HCPCS: 73030

== ENCOUNTER → 2023-08-10 14:58 | Outpatient (CLI) | payer OTHER, MEDICAID, SELFPAY ==
[2021-03-26 17:21] VITALS: BMI 46.0
--- NOTE | 2023-08-10 14:59 | DI.RAD.S_ITS ---
PROCEDURE: XR KNEE RT 3V INDICATIONS: pain/swelling TECHNIQUE: 3 views of the knee were acquired. COMPARISON: None. FINDINGS: Bones: No fractures or dislocations. No suspicious bony lesions. Mild tricompartmental osteoarthritis with osseous hypertrophy. Soft tissues: No joint effusion. No suspicious soft tissue calcifications. IMPRESSION: Mild right knee tricompartmental osteoarthritis. Dictated by: Tayla Chaudhari MD, PhD on 08/10/2023 at 15:24 Approved by: Tayla Chaudhari MD, PhD on 08/10/2023 at 15:25
== END ==
PROVIDERS: PCP Internal Medicine; Referring Provider Internal Medicine; Visit Provider Internal Medicine
DX: M17.11 Unilateral primary osteoarthritis, right knee (principal); M25.461 Effusion, right knee; M25.561 Pain in right knee
CPT/HCPCS: 73562

== ENCOUNTER → 2023-10-12 09:41 | Outpatient (CLI) | payer OTHER, MEDICAID, SELFPAY ==
[2021-03-26 17:21] VITALS: BMI 46.0
[2023-10-12 11:32] LABS: Albumin 3.5 g/dL (3.5-5.0); BUN Creatinine Ratio 16.9 (6-22); Blood Urea Nitrogen 13 mg/dL (7-17); Calcium 9.5 mg/dL (8.4-10.2); Carbon Dioxide 29 mmol/L (22-32); Chloride 104 mmol/L (98-107); Cholesterol 139 mg/dL (140-199); Estimated Glomerular Filt Rate > 60 mL/min (>60); Glucose 105 mg/dL (80-110); HDL Cholesterol 50 mg/dL (40-60); HEMOLYSIS < 15 (0-50); LDL Cholesterol Calculated 67 mg/dL (<100); Phosphorous 4.2 mg/dL (2.8-4.1); Potassium 4.6 mmol/L (3.4-5.1); Sodium 139 mmol/L (137-145); Triglycerides 109 mg/dL (35-150)
[2023-10-12 11:40] LABS: Free T4, Direct Thyroxine 1.06 ng/dL (0.78-2.19)
[2023-10-12 11:54] LABS: Thyroid Stimulating Hormone 0.582 uIU/mL (0.47-4.68)
[2023-10-12 16:25] LABS: Microalbumi Creatinin Ratio Ur 10.9 ug/mg CR (<30); Microalbumin Urine Random 0.9 mg/dL (0-1.6)
== END ==
PROVIDERS: PCP Internal Medicine; Referring Provider Student in an Organized Health Care Education/Training Program; Visit Provider Student in an Organized Health Care Education/Training Program
DX: E11.69 Type 2 diabetes mellitus with other specified complication (principal)
CPT/HCPCS: 36415; 80061; 80069; 82043; 82570; 84439; 84443

== ENCOUNTER → 2024-02-05 09:25 | Outpatient (CLI) | payer OTHER, MEDICAID, SELFPAY ==
[2021-03-26 17:21] VITALS: BMI 46.0
[2024-02-05 10:54] LABS: Free T4, Direct Thyroxine 1.03 ng/dL (0.78-2.19)
== END ==
LOC: LAB 09:27
PROVIDERS: PCP Internal Medicine; Referring Provider Student in an Organized Health Care Education/Training Program; Visit Provider Student in an Organized Health Care Education/Training Program
DX: E11.69 Type 2 diabetes mellitus with other specified complication (principal)
CPT/HCPCS: 36415; 84439; 84443

== ENCOUNTER → 2024-06-18 09:32 | Outpatient (CLI) | payer OTHER, MEDICAID, SELFPAY ==
[2021-03-26 17:21] VITALS: BMI 46.0
[2024-06-18 12:24] LABS: Albumin 3.5 g/dL (3.5-5.0); BUN Creatinine Ratio 17.8 (6-22); Blood Urea Nitrogen 16 mg/dL (7-17); Calcium 9.6 mg/dL (8.4-10.2); Carbon Dioxide 26 mmol/L (22-32); Chloride 102 mmol/L (98-107); Cholesterol 134 mg/dL (140-199); Estimated Glomerular Filt Rate > 60 mL/min (>60); Glucose 114 mg/dL (80-110); HDL Cholesterol 51 mg/dL (40-60); HEMOLYSIS < 15 (0-50); LDL Cholesterol Calculated 55 mg/dL (<100); Potassium 4.5 mmol/L (3.4-5.1); Sodium 136 mmol/L (137-145); Triglycerides 142 mg/dL (35-150)
[2024-06-18 12:52] LABS: Thyroid Stimulating Hormone 2.47 uIU/mL (0.47-4.68)
[2024-06-18 13:02] LABS: Creatinine Urine Random 117.68 mg/dL
[2024-06-18 13:07] LABS: Microalbumin Urine Random 1.3 mg/dL (0-1.6)
[2024-06-18 13:52] LABS: Free T4, Direct Thyroxine 0.77 ng/dL (0.78-2.19)
== END ==
PROVIDERS: PCP Internal Medicine; Referring Provider Student in an Organized Health Care Education/Training Program; Visit Provider Student in an Organized Health Care Education/Training Program
DX: E11.49 Type 2 diabetes mellitus with other diabetic neurological complication (principal)
CPT/HCPCS: 36415; 80061; 80069; 82043; 82570; 84439; 84443

== ENCOUNTER 2024-10-15 08:22 | Emergency (ER) | payer OTHER, MEDICAID, SELFPAY ==
[2021-03-26 17:21] VITALS: BMI 46.0
[2024-10-15] VITALS (11 sets, daily range): BP systolic 185–225; BP diastolic 81–93; PULSE 75–98; RESP 18; TEMP 36.7; O2SAT 94–99; BMI 43.0
--- NOTE | 2024-10-15 08:50 | ED_ITS ---
HPI - Nausea/Vomiting/Diarrhea General Chief complaint: Nausea/Vomiting/Diarrhea Stated complaint: N/V Time Seen by Provider: 10/15/24 08:47 Source: patient Mode of arrival: Ambulatory History of Present Illness HPI Narrative: Patient 63-year-old female history of diabetes hypertension asthma presenting today with nausea vomiting abdominal pain. She reports it started last night around 6:00 p.m. when she is thrown up numerous times. Nonbloody. She is all- over abdominal pain. No diarrhea fever chills cough or shortness of breath. Related Data Home Medications Medication Instructions Recorded Confirmed desonide 0.05 % topical cream 1 applic topical TID PRN Rash, 02/09/21 10/07/24 irritation epinephrine 0.3 mg/0.3 mL 0.3 mg IM SEE INSTRUCTIONS PRN 03/25/21 10/07/24 injection, auto-injector (EpiPen Allergic reactions 2-Bon) topiramate 50 mg tablet (Topamax) 200 mg PO DAILY 03/26/21 10/07/24 empagliflozin 25 mg tablet 25 mg PO DAILY 08/29/22 10/07/24 (Jardiance) glucagon 3 mg/actuation nasal 3 mg intranasal ONCE 08/29/22 10/07/24 spray (Baqsimi) atorvastatin 80 mg tablet 80 mg PO DAILY 11/28/22 10/07/24 insulin glargine 100 unit/mL (3 58 unit SUBCUT BID 11/28/22 10/07/24 mL) subcutaneous pen (Lantus Solostar U-100 Insulin) semaglutide 2 mg/dose (8 mg/3 mL) 2 mg SUBCUT 03/12/24 10/07/24 subcutaneous pen injector (Ozempic) Previous Rx's Medication Instructions Recorded calcium carbonate (Antacid 2,250 mg (7.0313 x 320 mg calcium 02/09/21 (calcium carbonate)) (750 mg)) PO DAILY #250 tabs cholecalciferol (vitamin D3) 50 50 mcg PO DAILY #90 caps 02/09/21 mcg (2,000 unit) capsule fluticasone propionate 50 2 spray intranasal BEDTIME #16 02/09/21 mcg/actuation nasal grams spray,suspension mecobalamin (vitamin B12) 1,000 1,000 mcg PO DAILY #90 tabs 02/09/21 mcg chewable tablet triamcinolone acetonide 0.1 % 1 applic topical QID #30 grams 01/17/22 topical cream ondansetron 4 mg disintegrating 4 mg PO Q8H PRN nausea and 08/17/22 tablet vomiting #10 tabs albuterol sulfate 2.5 mg/3 mL 2.5 mg (3 mL) inhalation Q4-6H PRN 11/28/22 (0.083 %) solution for nebulization shortness of breath or wheezing #180 mL diazepam 5 mg tablet 5 - 10 mg (1 - 2 x 5 mg) PO ONCE 01/17/23 PRN anxiety #6 tabs fluticasone propionate 230 2 puff inhalation BID #12 grams 05/01/23 mcg-salmeterol 21 mcg/actuation HFA inhaler (Advair HFA) clonazepam 1 mg tablet 1 mg PO BID #180 tabs 06/01/23 nortriptyline 50 mg capsule 50 mg PO HS #90 caps 11/29/23 omeprazole 40 mg capsule,delayed 40 mg PO BID #180 caps 11/29/23 release clonidine HCl 0.1 mg tablet 0.1 mg PO BID #180 tabs 12/27/23 duloxetine 40 mg capsule,delayed 40 mg PO DAILY #90 caps 12/27/23 release gabapentin 300 mg capsule 300 mg PO BEDTIME #90 caps 12/27/23 bupropion HCl 150 mg tablet,12 hr 150 mg PO BID #180 tabs 12/29/23 sustained-release losartan 100 mg tablet 100 mg PO DAILY #90 tabs 01/19/24 diazepam 5 mg tablet 5 mg PO ONCE PRN anxiety #3 tabs 04/15/24 sucralfate 1 gram tablet 1 g PO 4XD #360 tabs 05/20/24 galcanezumab-gnlm 120 mg/mL See Rx Instructions .Route 10/07/24 subcutaneous syringe (Emgality) .COMPLEX #1 mL ondansetron 4 mg disintegrating 4 mg PO Q8H PRN nausea and 10/15/24 tablet vomiting #10 tabs Allergies Allergy/AdvReac Type Severity Reaction Status Date / Time aspirin [ASPIRIN] Allergy Severe Breathing Verified 10/15/24 08:37 problem erythromycin base Allergy Severe Throat Verified 10/15/24 08:37 [ERYTHROMYCIN BASE] closes sumatriptan [SUMATRIPTAN] Allergy Severe Anaphylaxis Verified 10/15/24 08:37 meperidine [MEPERIDINE] Allergy Mild Rash Verified 10/15/24 08:37 hydrocodone [From VICODIN] Allergy Unknown Verified 10/15/24 08:37 adhesive tape Allergy Rash Verified 10/15/24 08:37 NSAIDS (Non-Steroidal Allergy Verified 10/15/24 08:37 Anti-Inflamma sweet potato Allergy Anaphylaxis Verified 10/15/24 08:37 ibuprofen [IBUPROFEN] AdvReac Mild Headache, Verified 10/15/24 08:37 vomiting Patient History Medical History Type 2 diabetes mellitus Asthma H/O migraine GERD (gastroesophageal reflux disease) (05/27/11) Recurrent major depressive disorder, in partial remission (05/12/17) Anxiety (05/12/17) Morbid obesity due to excess calories (01/06/17) Body mass index (BMI) of 40.1 to 44.9 in adult (01/06/17) Type 2 diabetes mellitus with hyperglycemia, with long-term current use of insulin (04/15/16) Acquired hypothyroidism (01/14/16) Type 2 diabetes mellitus with diabetic polyneuropathy (08/21/15) Mixed hyperlipidemia (05/27/11) Moderate persistent asthma without complication (05/27/11) Surgical History Status post reverse total arthroplasty of right shoulder (~03/2021) Surgical procedure planned Fracture Status post cholecystectomy S/P total abdominal hysterectomy and bilateral salpingo-oophorectomy Social History marital status: number of children: 3 household members: spouse lives independently: Yes caregiver/support person: No housing: apartment pets and animals: Yes education level: college occupational status: disabled current occupational exposures/hazards: No Previous occupational history: Restuarant liliam/gnosticism: [employer] leisure activities: other Smoking Status: Former smoker Tobacco: How many years used: 10 Smokeless tobacco user: other quit status: quit date established alcohol intake: never substance use type: other Smoking Status: Former smoker alcohol intake frequency: other Exam Initial Vital Signs Initial Vital Signs: Vital Signs Pulse Oximetry 95 10/15/24 08:25 GENERAL: Alert 63-year-old female and in [no acute] distress. HEENT: Head atraumatic,EOMI, pupils reactive, face symmetric, mildly dry mucous membranes CARDIOVASCULAR: Regular rate and rhythm without murmurs, rubs or gallops. RESPIRATORY: Breath sounds equal bilaterally, no wheezes rales or rhonchi. ABDOMEN: Soft, nondistended diffusely tender EXTREMITIES: Normal range of motion, no clubbing or edema. Neurovascularly intact NEUROLOGICAL: Alert and oriented x4.Normal gait and speech. Cranial nerves II through XII grossly intact. SKIN: Warm, dry, no laceration, no petechiae, no rashes or lesions. Course Orders Ordered: ED Orders 10/15/24 09:25 Complete Blood Count AUTO DIFF Stat Comprehensive Metabolic Panel Stat Lactate (Lactic Acid) Stat Lipase Stat Discontinued Medications Sodium Chloride (Normal Saline 0.9%) 1,000 mls @ 1,000 mls/hr IV BOLUS ONE Stop: 10/15/24 10:33 Last Infusion: 10/15/24 10:35 Dose: Infused Documented By: Admin: 10/15/24 09:42 Dose: 1,000 mls/hr Documented By: Metoclopramide HCl (Metoclopramide 10 Mg/2 Ml Inj) 10 mg IV NOW ONE Stop: 10/15/24 09:35 Last Admin: 10/15/24 09:42 Dose: 10 mg Documented By: Pantoprazole Sodium (Pantoprazole 40 Mg Vial) 40 mg IV NOW ONE Stop: 10/15/24 08:56 Last Admin: 10/15/24 09:28 Dose: 40 mg Documented By: Vital Signs Vital signs: Vital Signs - 8 hr 10/15/24 08:25 10/15/24 08:26 10/15/24 08:26 Temperature Pulse Rate 90 Respiratory Rate Blood Pressure 225/90 H Pulse Oximetry 95 99 Oxygen Delivery Method 10/15/24 08:30 10/15/24 08:31 10/15/24 08:31 Temperature Pulse Rate 84 86 Respiratory Rate 18 Blood Pressure 185/87 H 198/81 H Pulse Oximetry 99 99 Oxygen Delivery Method Room Air 10/15/24 08:37 10/15/24 09:00 10/15/24 09:01 Temperature 98.0 F Pulse Rate 85 88 Respiratory Rate 18 Blood Pressure 225/90 H 221/93 H Pulse Oximetry 98 95 Oxygen Delivery Method Room Air 10/15/24 09:01 10/15/24 09:30 10/15/24 09:31 Temperature Pulse Rate 98 H 75 Respiratory Rate Blood Pressure 193/88 H Pulse Oximetry 96 98 Oxygen Delivery Method 10/15/24 09:31 10/15/24 10:00 10/15/24 10:30 Temperature Pulse Rate 80 86 87 Respiratory Rate Blood Pressure Pulse Oximetry 98 98 94 Oxygen Delivery Method MDM - Nausea/Vomiting/Diarrhea Lab Data 10/15/24 09:25 10/15/24 09:25 Labs: Lab Results 10/15/24 Range/Units 09:25 WBC 9.3 (4.5-11.0) X10^3/uL RBC 4.93 (4.0-5.2) X10^6/uL Hgb 14.6 (12.0-16.0) g/dL Hct 43.7 (36-46) % MCV 88.7 (80-100) fL MCH 29.7 (26-34) PG MCHC 33.5 (30-36) % RDW 13.8 (11.6-14.8) % Plt Count 282 (150-400) X10^3/uL Neut % (Auto) Not Reportable Lymph % (Auto) Not Reportable [place] % (Auto) Not Reportable Eos % (Auto) Not Reportable Baso % (Auto) Not Reportable Lymph # (Auto) Not Reportable [place] # (Auto) Not Reportable Baso # (Auto) Not Reportable Total Counted 100 Seg Neutrophils % 71.0 H (38-70) % Lymphocytes % (Manual) 21.0 L (25-45) % Atypical Lymphs % 6.0 H ( - 0) % Monocytes % (Manual) 2.0 (2-11) % Neutrophils # (Manual) 6603 H (8057-5944) /uL RBC Morphology Normal morphology Sodium 139 (137-145) mmol/L Potassium 4.0 (3.4-5.1) mmol/L Chloride 106 (98-107) mmol/L Carbon Dioxide 24 (22-32) mmol/L BUN 17 (7-17) mg/dL Creatinine 0.80 (0.52-1.04) mg/dL Estimated GFR > 60 (>60) mL/min BUN/Creatinine Ratio 21.3 (6-22) Glucose 93 (80-110) mg/dL Lactate 1.4 (0.7-2.1) mmol/L Calcium 9.8 (8.4-10.2) mg/dL Total Bilirubin 1.0 (0.2-1.3) mg/dL AST 30 (14-36) IU/L ALT 26 (<35) IU/L Alkaline Phosphatase 113 (38-126) U/L Total Protein 7.7 (6.3-8.2) g/dL Albumin 4.3 (3.5-5.0) g/dL Globulin 3.4 (1.7-4.1) g/dL Albumin/Globulin Ratio 1.3 (1.0-2.8) Lipase 55 (23-300) U/L MDM Narrative Medical decision making narrative: MDM CC: Nausea vomiting abdominal pain Complicating co-morbidities: Diabetes hypertension Medical records reviewed: Previous ED visits Differential considered: Gastroenteritis gastroparesis DKA Exam documented above, pertinent findings include: Awake alert 63-year-old female mildly dry mucous membranes abdomen is soft nontender Lab Test results independently reviewed as above. Pertinent findings: WBC 9.3 hemoglobin 14.6 hematocrit 43.7 platelets 282 Sodium 139 potassium 4.0 chloride 106 carbon dioxide 24 BUN 17 Cr 0.8 anion gap 9 Lactate 1.4 Bilirubin 1.0 AST 30 ALT 26 alk-phos 113 lipase 55 Treatments: Fluid,Reglan Re-evaluations: Sitting up eating crackers drinking fluids Discussion: Patient is 63-year-old female presents today with vomiting. She has no abdominal pain or diarrhea. Suspect viral illness. No evidence of dehydration blood work. This does happen to her occasionally unclear why. I see no need for imaging at this time. She has no evidence of DKA. Overall appears well Discharge Plan Departure Patient Disposition: Home Clinical Impression: Gastroenteritis Instructions: DI for Viral Gastroenteritis -- Adult Activity Restrictions/Additional Instructions: *You have been diagnosed with gastroenteritis *What to do: Increase fluids as tolerated recommend electrolyte fluids increase diet as tolerated *Continue to take medications as directed Zofran 4 mg every 8 hours if needed for nausea or vomiting *Follow up with your primary care provider in 2-3 days or call [phone] *Return to ER if you should have persistent vomiting increased abdominal pain or any new, worsening or concerning symptoms Prescriptions: New ondansetron 4 mg tablet,disintegrating 4 mg PO Q8H PRN (Reason: nausea and vomiting) Qty: 10 0RF No Action diazepam 5 mg tablet 5 - 10 mg PO ONCE MDD 10 PRN (Reason: anxiety) Qty: 6 0RF Advair HFA 230-21 mcg/actuation HFA aerosol inhaler 2 puff inhalation BID Qty: 12 3RF Rx Instructions: administer with spacer clonazepam 1 mg tablet 1 mg PO BID Qty: 180 3RF omeprazole 40 mg capsule,delayed release(DR/EC) 40 mg PO BID Qty: 180 3RF nortriptyline 50 mg capsule 50 mg PO HS Qty: 90 3RF gabapentin 300 mg capsule 300 mg PO BEDTIME Qty: 90 3RF duloxetine 40 mg capsule,delayed release(DR/EC) 40 mg PO DAILY Qty: 90 3RF clonidine HCl 0.1 mg tablet 0.1 mg PO BID Qty: 180 3RF bupropion HCl 150 mg tablet sustained-release 12 hr 150 mg PO BID Qty: 180 3RF losartan 100 mg tablet 100 mg PO DAILY Qty: 90 3RF diazepam 5 mg tablet 5 mg PO ONCE PRN (Reason: anxiety) Qty: 3 0RF Rx Instructions: take 30-60 min prior to flight, max 1 per 8 hours sucralfate 1 gram tablet 1 g PO 4XD Qty: 360 1RF desonide 0.05 % cream 1 applic TOP TID PRN (Reason: Rash, irritation) mecobalamin (vitamin B12) 1,000 mcg tablet,chewable 1,000 mcg PO DAILY Qty: 90 3RF fluticasone propionate 50 mcg/actuation spray,suspension 2 spray intranasal BEDTIME Qty: 16 3RF Rx Instructions: administer into each nostril calcium carbonate [Antacid (calcium carbonate)] 320 mg calcium (750 mg) tablet,chewable 2,250 mg PO DAILY Qty: 250 3RF cholecalciferol (vitamin D3) 50 mcg (2,000 unit) capsule 50 mcg PO DAILY Qty: 90 3RF triamcinolone acetonide 0.1 % cream 1 applic topical QID Qty: 30 0RF Baqsimi 3 mg/actuation spray,non-aerosol 3 mg intranasal ONCE Jardiance 25 mg tablet 25 mg PO DAILY atorvastatin 80 mg tablet 80 mg PO DAILY insulin glargine [Lantus Solostar U-100 Insulin] 100 unit/mL (3 mL) insulin pen 58 unit subcut BID albuterol sulfate 2.5 mg /3 mL (0.083 %) solution for nebulization 2.5 mg inhalation Q4-6H PRN (Reason: shortness of breath or wheezing) Qty: 180 4RF Emgality Syringe 120 mg/mL syringe See Rx Instructions .ROUTE .COMPLEX Qty: 1 3RF Dose Instruction: INJECT 120MG UNDER THE SKIN EVERY MONTH Rx Instructions: INJECT 120MG UNDER THE SKIN EVERY MONTH Ozempic 2 mg/dose (8 mg/3 mL) pen injector 2 mg SUBCUT ondansetron 4 mg tablet,disintegrating 4 mg PO Q8H PRN (Reason: nausea and vomiting) Qty: 10 0RF epinephrine [EpiPen 2-Bon] 0.3 MG/0.3 ML auto-injector 0.3 mg IM SEE INSTRUCTIONS PRN (Reason: Allergic reactions) topiramate [Topamax] 50 mg Tablet 200 mg PO DAILY Referrals: Sheng Gomes MD [Primary Care Provider] - Stand Alone Forms: Patient Portal/API/Survey
[2024-10-15] MEDS: PANTOPRAZOLE 40 MG VIAL IV (09:28)
[2024-10-15 09:34] LABS: Hematocrit 43.7 % (36-46); Hemoglobin 14.6 g/dL (12.0-16.0); Mean Corpuscular HGB Conc 33.5 % (30-36); Mean Corpuscular Hemoglobin 29.7 PG (26-34); Mean Corpuscular Volume 88.7 fL (80-100); Platelet Count 282 X10^3/uL (150-400); Red Blood Cell Count 4.93 X10^6/uL (4.0-5.2); Red Cell Distribution Width 13.8 % (11.6-14.8); White Blood Cell Count 9.3 X10^3/uL (4.5-11.0)
[2024-10-15 09:35] LABS: Add Manual Diff / Slide Review YES
[2024-10-15] MEDS: METOCLOPRAMIDE 10 MG/2 ML INJ IV (09:42)
[2024-10-15] MEDS: SODIUM CHLORIDE 0.9% 1,000 ML 1000 ML IV (09:42)
[2024-10-15 09:45] LABS: Lactate (Lactic Acid) 1.4 mmol/L (0.7-2.1)
[2024-10-15 09:46] LABS: Alanine Aminotransferase 26 IU/L (<35); Albumin 4.3 g/dL (3.5-5.0); Albumin Globulin Ratio 1.3 (1.0-2.8); Alkaline Phosphatase 113 U/L (38-126); Aspartate Aminotransferase 30 IU/L (14-36); BUN Creatinine Ratio 21.3 (6-22); Blood Urea Nitrogen 17 mg/dL (7-17); Calcium 9.8 mg/dL (8.4-10.2); Carbon Dioxide 24 mmol/L (22-32); Chloride 106 mmol/L (98-107); Estimated Glomerular Filt Rate > 60 mL/min (>60); Globulin 3.4 g/dL (1.7-4.1); Glucose 93 mg/dL (80-110); HEMOLYSIS < 15 (0-50); Lipase 55 U/L (23-300); Sodium 139 mmol/L (137-145); Total Protein 7.7 g/dL (6.3-8.2)
[2024-10-15 09:49] LABS: Neutrophils Absolute Manual 6603 /uL (3000-5900); Total Cells Counted 100
[2024-10-15 09:50] LABS: RBC Morphology Normal Morphology
--- NOTE | 2024-10-15 09:57 | PC.NURSE ---
Pt has continuous acid reflux and vomiting bile like fluid. Medicated protonix and reglan. Discussed plan of care, understands. BG 84.
--- NOTE | 2024-10-15 10:30 | PC.NURSE ---
PO challenged with crackers. Pt tolerating well.
== END 2024-10-15 10:53 | disposition home or self-care (01) ==
PROVIDERS: Emergency Provider Emergency Medicine; PCP Internal Medicine
DX: K52.9 Noninfective gastroenteritis and colitis, unspecified (principal); E11.9 Type 2 diabetes mellitus without complications; I10 Essential (primary) hypertension; Z79.4 Long term (current) use of insulin; Z79.85 Long-term (current) use of injectable non-insulin antidiabetic drugs; Z87.891 Personal history of nicotine dependence
CPT/HCPCS: 36415; 80053; 83605; 83690; 85007; 85025; 96361; 96374; 96375; 99284; J2470; J2765

== ENCOUNTER → 2024-11-05 14:37 | Outpatient (CLI) | payer MEDICARE, MEDICAID, SELFPAY ==
[2021-03-26 17:21] VITALS: BMI 46.0
--- NOTE | 2024-11-05 14:40 | DI.MG.S_ITS ---
BILATERAL DIGITAL SCREENING MAMMOGRAM 3D/2D WITH CAD: 11/05/2024 CLINICAL: Routine screening. Comparison is made to exams dated: 01/14/2022 mammogram, 12/06/2019 mammogram, and 11/15/2018 mammogram - [facility]. The breasts are almost entirely fatty (category a/<25% glandular tissue). Current study was also evaluated with a Computer Aided Detection (CAD) system. There are benign calcifications in both breasts. No significant masses, calcifications, or other findings are seen in either breast. There has been no significant interval change. IMPRESSION: BENIGN There is no mammographic evidence of malignancy. A 1 year screening mammogram is recommended. Based on the Tyrer Cuzick model (a risk assessment model) the patient's lifetime risk is 2.7% and her 10 year risk is 1.2%. According to the ACR, ACS, and NCCN guidelines, an annual breast MRI exam along with mammogram is recommended if the patient's lifetime risk is 20% or greater. This exam was interpreted at Station ID: [id number]. NOTE: For mammograms, a report in lay terms will be sent to the patient. Approximately 15% of breast malignancies will not be visualized mammographically. In the management of a palpable breast mass, a negative mammogram must not discourage biopsy of a clinically suspicious lesion. Electronically Signed By: Saurav santoyo/king:11/06/2024 09:47:32 letter sent: Normal Exam ACR BI-RADS Category 2: Benign
== END ==
PROVIDERS: PCP Internal Medicine; Referring Provider Internal Medicine; Visit Provider Internal Medicine
DX: Z12.31 Encounter for screening mammogram for malignant neoplasm of breast (principal); R92.313 Mammographic fatty tissue density, bilateral breasts
CPT/HCPCS: 77063; 77067

== ENCOUNTER → 2024-11-28 09:55 | Outpatient (CLI) | payer MEDICARE, MEDICAID, SELFPAY ==
[2021-03-26 17:21] VITALS: BMI 46.0
[2024-11-28 11:03] LABS: Albumin 3.5 g/dL (3.5-5.0); BUN Creatinine Ratio 14.8 (6-22); Blood Urea Nitrogen 13 mg/dL (7-17); Calcium 8.9 mg/dL (8.4-10.2); Carbon Dioxide 27 mmol/L (22-32); Chloride 104 mmol/L (98-107); Cholesterol 164 mg/dL (140-199); Estimated Glomerular Filt Rate > 60 mL/min (>60); Glucose 160 mg/dL (80-110); HDL Cholesterol 53 mg/dL (40-60); HEMOLYSIS < 15 (0-50); LDL Cholesterol Calculated 87 mg/dL (<100); Phosphorous 3.9 mg/dL (2.8-4.1); Potassium 4.7 mmol/L (3.4-5.1); Sodium 136 mmol/L (137-145); Triglycerides 119 mg/dL (35-150)
[2024-11-28 11:26] LABS: Free T4, Direct Thyroxine 0.76 ng/dL (0.78-2.19)
[2024-11-28 11:40] LABS: Thyroid Stimulating Hormone 2.74 uIU/mL (0.47-4.68)
[2024-11-28 14:25] LABS: Creatinine Urine Random 77.89 mg/dL
[2024-11-28 14:29] LABS: Microalbumin Urine Random 1.7 mg/dL (0-1.6)
== END ==
LOC: LAB 09:57
PROVIDERS: PCP Internal Medicine; Referring Provider Student in an Organized Health Care Education/Training Program; Visit Provider Student in an Organized Health Care Education/Training Program
DX: E11.69 Type 2 diabetes mellitus with other specified complication (principal); E11.49 Type 2 diabetes mellitus with other diabetic neurological complication
CPT/HCPCS: 36415; 80061; 80069; 82043; 82570; 84439; 84443

== ENCOUNTER → 2025-02-14 09:22 | Outpatient (CLI) | payer MEDICARE, MEDICAID, SELFPAY ==
[2021-03-26 17:21] VITALS: BMI 46.0
[2025-02-14 11:03] LABS: Microalbumin Urine Random 11.3 mg/dL (0-1.6)
[2025-02-14 11:19] LABS: Albumin 3.9 g/dL (3.5-5.0); BUN Creatinine Ratio 13.2 (6-22); Blood Urea Nitrogen 12 mg/dL (7-17); Calcium 9.3 mg/dL (8.4-10.2); Carbon Dioxide 29 mmol/L (22-32); Chloride 105 mmol/L (98-107); Cholesterol 139 mg/dL (140-199); Estimated Glomerular Filt Rate > 60 mL/min (>60); Glucose 73 mg/dL (70-99); HDL Cholesterol 56 mg/dL (40-60); HEMOLYSIS < 15 (0-50); LDL Cholesterol Calculated 67 mg/dL (<100); Phosphorous 3.9 mg/dL (2.8-4.1); Potassium 4.6 mmol/L (3.4-5.1); Sodium 140 mmol/L (137-145); Triglycerides 78 mg/dL (35-150)
== END ==
LOC: LAB 09:23
PROVIDERS: PCP Internal Medicine; Referring Provider Student in an Organized Health Care Education/Training Program; Visit Provider Student in an Organized Health Care Education/Training Program
DX: E11.69 Type 2 diabetes mellitus with other specified complication (principal)
CPT/HCPCS: 36415; 80061; 80069; 82043; 82570

== ENCOUNTER → 2025-06-23 13:02 | Outpatient (CLI) | payer MEDICARE, MEDICAID, SELFPAY ==
[2021-03-26 17:21] VITALS: BMI 46.0
[2025-06-23 13:49] LABS: Hemoglobin A1C% w Est Avg Glu 6.0 % (4.0-6.0)
[2025-06-23 14:15] LABS: Albumin 4.2 g/dL (3.5-5.0); Blood Urea Nitrogen 13 mg/dL (7-17); Calcium 9.8 mg/dL (8.4-10.2); Carbon Dioxide 19 mmol/L (22-32); Chloride 106 mmol/L (98-107); Cholesterol 163 mg/dL (140-199); Estimated Glomerular Filt Rate 56 mL/min (>60); Glucose 173 mg/dL (70-99); HDL Cholesterol 61 mg/dL (40-60); HEMOLYSIS < 15 (0-50); Phosphorous 3.6 mg/dL (2.8-4.1); Potassium 4.9 mmol/L (3.4-5.1); Sodium 139 mmol/L (137-145); Triglycerides 132 mg/dL (35-150)
[2025-06-23 14:37] LABS: Microalbumi Creatinin Ratio Ur 103.0 ug/mg CR (<30)
== END ==
PROVIDERS: PCP Internal Medicine; Referring Provider Student in an Organized Health Care Education/Training Program; Visit Provider Student in an Organized Health Care Education/Training Program
DX: E11.69 Type 2 diabetes mellitus with other specified complication (principal)
CPT/HCPCS: 36415; 80061; 80069; 82043; 82570; 83036